=== PATIENT | female | born 1950 | race Caucasian/White ===

== ENCOUNTER 2023-08-31 13:57 | Emergency (ER) | payer MEDICARE, OTHER, SELFPAY ==
[2023-08-31 14:15] VITALS: BP 137/90
[2023-08-31 18:11] VITALS: BP 127/67; BMI 26.8
[2023-08-31 18:40] LABS: ALT (SGPT) 52 U/L (0-35); AST (SGOT) 38 U/L (14-36); Albumin 3.3 g/dl (3.5-5.0); Alkaline Phosphatase 132 U/L (38-126); Blood Urea Nitrogen 12 mg/dl (7-17); Calcium 9.7 mg/dl (8.4-10.2); Carbon Dioxide 25 mmol/L (22-30); Chloride 99 mmol/L (98-107); Estimated Creatinine Clearance 69 ml/min; Glucose 188 mg/dl (70-99); Potassium 3.4 mmol/L (3.5-5.1); Sodium 130 mmol/L (135-145); Total Bilirubin 0.5 mg/dl (0.2-1.3); Total Protein 5.7 g/dl (6.3-8.2); eGFR > 60.00
[2023-08-31 18:44] LABS: % Basophils 0.3 % (0-2); % Eosinophils 0.8 % (0-6); % Immature Granulocytes 0.4 % (0-0.5); % Lymphocytes 16.7 % (20.5-51.1); % Monocytes 9.4 % (1.7-9.3); % Neutrophils 72.4 % (42.2-75.2); Absolute Eosinophils 0.1 10^3/uL (0-0.7); Absolute Immature Granulocytes 0.1 10^3/uL (0-0.05); Absolute Lymphocytes 1.9 10^3/uL (1.2-3.4); Absolute Monocytes 1.1 10^3/uL (0.1-0.6); Absolute Neutrophils 8.3 10^3/uL (1.4-6.5); Hematocrit 34.5 % (37.0-47.0); Hemoglobin 11.8 g/dL (12.0-16.0); Mean Corp Hgb Conc. 34.2 g/dL (33.0-37.0); Mean Corpuscular Hgb 29.9 pg (27.0-31.0); Mean Corpuscular Volume 87.6 fL (81.0-99.0); Mean Platelet Volume 9.5 fL (7.4-10.4); Nucleated Red Blood Cells % 0 %; Platelet Count 347 10^3/uL (130-400); Red Blood Cell Count 3.94 10^6/uL (4.20-5.40); Red Cell Dist. Width 12.7 % (11.5-14.5); White Blood Cell Count 11.5 10^3/uL (4.8-10.8)
[2023-08-31 19:00] LABS: Urine Albumin Negative (Neg - Trace); Urine Bilirubin Negative (Negative); Urine Character Clear (Clear); Urine Color Yellow; Urine Glucose Negative (Negative); Urine Ketone Negative (Negative); Urine Leukocyte Negative (Negative); Urine Nitrite Negative (Negative); Urine Occult Blood Trace (Negative); Urine Urobilinogen Negative (Neg - 1+)
[2023-08-31 19:06] VITALS: BP 136/82
[2023-08-31] MEDS: ZOFRAN 4 MG IV (19:07)
[2023-08-31] MEDS: MORPHINE SULFATE 2 MG IV (19:08)
[2023-08-31] MEDS: DECADRON 10 MG IV (19:09)
[2023-08-31 19:14] LABS: Urine White Cell None Seen /HPF (0-5)
--- NOTE | 2023-08-31 22:57 | ED.MUSCINJ ---
HPI-Injury
General
Chief Complaint: Extremity Pain (non-traumatic)
Source: patient
Exam Limitations: none
Time Seen by Provider: 08/31/23 17:04
Nursing documentation reviewed up to this point in time: agreed with
Travel History
Have you had any contact with someone who has COVID-19?: No
Do you have any symptoms of coronavirus? Fever > 100 degrees, chills, cough, shortness of breath, sore throat, loss of taste or smell, muscle aches, or headache?: No
History of Present Illness-Injury
Is this injury a work related problem?: No
Is pt an associate of [facility]?: No
Initial Injury comments:
Patient to ED with complaint of low back pain. States she was seen by pain management last week, had epidural. States first 24 hours she was pain free but after that pain began to excalate. Advised by Dr. Mondragon to come to ED. Denies
fever/chills, n/v/d. No ski rash. No headache or dizziness. States at times legs feel weak because of pain. Brought to ED by spouse for eval.
Past History
Past History
ED Past Medical History: None, Cancer, GERD, HTN and Hypercholesterolemia
ED Past Surgical History: Urological
Social History
Tobacco: Non-smoker
Alcohol: None
Drug: None
Personal:
Living: with family
Review of Systems
Review of Systems
Allergies reviewed?: Yes
All Other Systems: ROS reviewed and negative except as documented in HPI and ROS
Constitutional: Reports no symptoms
EENT: Reports no symptoms
Respiratory: Reports no symptoms
Cardiac: Reports no symptoms
ABD/GI: Reports no symptoms
: Reports no symptoms
Musculoskeletal: Reports joint pain (back pain)
Skin: Reports no symptoms
Neurological: Reports no symptoms
Psychiatric: Reports no symptoms
Musculoskeletal Injury Exam
Musculoskeletal Injury Exam
Bilateral Lower Back:
Pain with Movement?: Moderate
Tender to palpation?: Moderate
Soft tissue swelling?: None
External deformity and angulation?: None
Joint effusion?: None
Contusion?: None
Hematoma-local bleeding into tissue?: None
Strain- Sprain- Tear (Connective tissue injury)?: None
Crepitus with movement?: No
Joint instability?: No
Malalignment/deformity?: No
Range of motion: Limited
Distal skin color and temperature: normal-warm & good color
Capillary Refill: normal
Normal distal neurovascular exam?: Yes
Phy Exam
General Physical Exam
General Presentation: well appearing and no apparent distress
General age: appears stated age
General Skin: warm and dry
General Habitus: normal
General Mental: alert
Reflexes
Reflexes: +3: Left achilles and +3: Right achilles
Musculoskeletal Exam
Musculoskeletal Exam: neuro vasc intact
Skin Exam
Skin Exam: normal color, warm/dry and no rash
Psychiatric Exam
Psychiatric Exam: normal mood/affect
Injury Course
Orders/Labs/Results
Orders:
Orders
08/31/23 17:13
CR Lumbar Spine Comp Min 4 Vw* Urgent
Comment:
Reason For Exam: pain
08/31/23 18:11
Complete Blood Count/With Diff Urgent
Comprehensive Metabolic Panel Urgent
Urinalysis Reflex To Culture Urgent
Date Specimen was Collected: 08/31/23
Time Specimen was Collected: 18:06
Urine Microscopic Reflex Cult Urgent
08/31/23 18:52
Dexamethasone Sod Phosphate [Decadron] 10 mg IV NOW STA
Morphine Sulfate 2 mg IV NOW STA
Ondansetron Injectable [Zofran] 4 mg IV NOW STA
Abnormal Lab Results
08/31/23
18:11
WBC 11.5 H 10^3/uL
(4.8-10.8)
RBC 3.94 L 10^6/uL
(4.20-5.40)
Hgb 11.8 L g/dL
(12.0-16.0)
Hct 34.5 L %
(37.0-47.0)
Abs Immat Gran (auto) 0.1 H 10^3/uL
(0-0.05)
Absolute Neuts (auto) 8.3 H 10^3/uL
(1.4-6.5)
Absolute Monos (auto) 1.1 H 10^3/uL
(0.1-0.6)
Lymphocytes % 16.7 L %
(20.5-51.1)
Monocytes % 9.4 H %
(1.7-9.3)
Sodium 130 L mmol/L
(135-145)
Potassium 3.4 L mmol/L
(3.5-5.1)
Glucose 188 H mg/dl
(70-99)
AST 38 H U/L
(14-36)
ALT 52 H U/L
(0-35)
Alkaline Phosphatase 132 H U/L
(38-126)
Total Protein 5.7 L g/dl
(6.3-8.2)
Albumin 3.3 L g/dl
(3.5-5.0)
Ur Occult Blood Reflex Trace A
(Negative)
Urine RBC 3-6 A /HPF
(0-2)
08/31/23 18:11
08/31/23 18:11
*Radiology
Radiology exam reviewed: radiology read reviewed
*Pulse Oximetry
Patient hypoxic: no
*Critical Care Note
Total Time (30-74mins, 75-104mins- exclusive of procedures): Not Applicable
Update Note
Update Note:
Improved with pain medications. Ambulating without difficulty. Afebrile. Will discharge home. She will follow up with pain management in AM
ED Attending Note
-
Portions of this chart may have been created with voice recognition software.� Occasional wrong word or��sound alike� substitutions may have occurred due to the inherent limitations of voice recognition software.
Discharge Plan
Departure
Patient Disposition: Home (Routine Discharge)
Date of Disposition: 08/31/23
Time of Disposition: 19:39
Patient with high blood pressure during this ER visit?: No
Condition: Good
Covid-19: Not Applicable
Discharge Problem:
Back pain
Instructions: Back Pain
Prescriptions:
New
oxycodone-acetaminophen [Percocet] 5-325 mg tablet
1 tab PO Q4HPRN PRN (Reason: pain) Qty: 15 0RF
No Action
simvastatin 10 MG tablet
10 mg PO HS
amitriptyline 10 mg Tablet
40 mg PO HS Qty: 0
omeprazole magnesium [Prilosec OTC] 20 MG tablet,delayed release (DR/EC)
20 mg PO DAILY
fosinopril 20 MG tablet
20 mg PO DAILY
hydrochlorothiazide 12.5 MG capsule
12.5 mg PO DAILY
diphenhydramine-acetaminophen [Tylenol PM Extra Strength] 1 EACH tablet
2 tab PO HS PRN (Reason: PAIN/SLEEP)
diltiazem HCl 120 mg capsule,extended release 24hr
120 mg PO DAILY
azelastine 137 mcg (0.1 %) aerosol,spray
1 spray INTRANASAL BID
amoxicillin-pot clavulanate 875-125 mg tablet
1 tab PO Q12H
magnesium citrate 125 mg Capsule
120 mg PO HS
Referrals:
Ellis Hi MD [Family Provider] - Tomorrow
Interventions
Interventions:
*Risk Screen - Suicide Last Done: 08/31/23 14:15
*General Assessment Last Done: 08/31/23 19:13
*Neglect/Abuse Screening Last Done: 08/31/23 14:15
ED- Fall Risk Assessment Last Done: 08/31/23 19:14
*ED COVID-19 Vaccine History Last Done: 08/31/23 14:15
*Nursing Disposition Last Done: 08/31/23 20:18
ED-Skin Assessment Last Done: 08/31/23 18:11
ED-Peripheral Vascular Assessment Last Done: 08/31/23 18:16
ED-Musculoskeletal Assessment Last Done: 08/31/23 18:16
Discharge Date and Time
Discharge Date/Time: 08/31/23 20:19
== END 2023-08-31 20:19 | disposition home or self-care (01) ==
LOC: EMR 13:57
PROVIDERS: Nurse Practitioner; EMERGENCY PHYSICIAN Emergency Medicine; FAMILY PHYSICIAN Family Medicine
DX: M54.9 Dorsalgia, unspecified (principal)
CPT/HCPCS: 99284; 96374; 96375 ×2; 72110; 80053; 81003; 81015; 85025

== ENCOUNTER → 2023-09-23 15:43 | Outpatient (REF) | payer MEDICARE, OTHER, SELFPAY ==
[2023-09-23 16:04] LABS: % Basophils 0.4 % (0-2); % Eosinophils 1.1 % (0-6); % Immature Granulocytes 0.6 % (0-0.5); % Lymphocytes 14.6 % (20.5-51.1); % Monocytes 12.7 % (1.7-9.3); % Neutrophils 70.6 % (42.2-75.2); Absolute Basophils 0.1 10^3/uL (0-0.2); Absolute Eosinophils 0.2 10^3/uL (0-0.7); Absolute Immature Granulocytes 0.1 10^3/uL (0-0.05); Absolute Lymphocytes 2.1 10^3/uL (1.2-3.4); Absolute Monocytes 1.8 10^3/uL (0.1-0.6); Absolute Neutrophils 10.1 10^3/uL (1.4-6.5); Hematocrit 35.6 % (37.0-47.0); Hemoglobin 11.6 g/dL (12.0-16.0); Mean Corp Hgb Conc. 32.6 g/dL (33.0-37.0); Mean Corpuscular Hgb 28.6 pg (27.0-31.0); Mean Corpuscular Volume 87.9 fL (81.0-99.0); Mean Platelet Volume 9.3 fL (7.4-10.4); Nucleated Red Blood Cells % 0 %; Platelet Count 508 10^3/uL (130-400); Red Blood Cell Count 4.05 10^6/uL (4.20-5.40); Red Cell Dist. Width 13.6 % (11.5-14.5); White Blood Cell Count 14.2 10^3/uL (4.8-10.8)
[2023-09-23 16:19] LABS: ALT (SGPT) 26 U/L (0-35); AST (SGOT) 21 U/L (14-36); Albumin 3.2 g/dl (3.5-5.0); Alkaline Phosphatase 125 U/L (38-126); Blood Urea Nitrogen 15 mg/dl (7-17); Calcium 10.3 mg/dl (8.4-10.2); Carbon Dioxide 24 mmol/L (22-30); Chloride 100 mmol/L (98-107); Glucose 116 mg/dl (70-99); Potassium 4.1 mmol/L (3.5-5.1); Sodium 135 mmol/L (135-145); Total Bilirubin 0.8 mg/dl (0.2-1.3); Total Protein 5.8 g/dl (6.3-8.2); eGFR > 60.00
[2023-09-23 16:21] LABS: Erythrocyte Sed Rate 56 mm/hour (0-20)
[2023-09-23 16:33] LABS: Vitamin D, 25-OH*** 16.6 ng/mL (30-80)
[2023-09-23 17:46] LABS: Creatine Phosphokinase < 20 U/L (30-135)
[2023-09-23 19:44] LABS: TSH Reflex To Free T4 2.46 uIU/ml (0.47-4.68)
[2023-09-26 21:28] LABS: ANA, IgG Reflex to HEp-2 Detected (None Detected)
[2023-09-28 01:37] LABS: ANA, HEp-2, IgG Detected (<1:80)
[2023-09-28 10:32] LABS: ANA Pattern Centromere
== END ==
LOC: CLAB 15:43
PROVIDERS: ATTENDING PHYSICIAN Nurse Practitioner Family
DX: M62.81 Muscle weakness (generalized) (principal); Z79.899 Other long term (current) drug therapy
CPT/HCPCS: 36415; 80053; 82306; 82550; 84443; 85025; 85652; 86038; 86039; 86140

== ENCOUNTER → 2023-09-27 09:50 | Outpatient (REF) | payer MEDICARE, OTHER, SELFPAY ==
[2023-09-27 16:19] LABS: Rheumatoid Agglutinin Less Than 10 IU (<10 IU)
== END ==
LOC: HWLAB 09:50
PROVIDERS: ATTENDING PHYSICIAN Nurse Practitioner Family
DX: M62.81 Muscle weakness (generalized) (principal)
CPT/HCPCS: 36415; 86430

== ENCOUNTER → 2023-09-29 15:27 | Outpatient (REF) | payer MEDICARE, OTHER, SELFPAY ==
[2023-09-29 16:11] LABS: Calcium 10.5 mg/dl (8.4-10.2)
[2023-10-02 11:45] LABS: Intact PTH 36.7 pg/ml (13.6-85.8)
[2023-10-03 04:14] LABS: Albumin 3.16 g/dL (3.75-5.01); Alpha 1 Globulin 0.63 g/dL (0.19-0.46); Alpha 2 Globulin 1.12 g/dL (0.48-1.05); Free Kappa Light Chains,Quant 21.35 mg/L (3.30-19.40); Free Lambda Light Chains,Quant 24.32 mg/L (5.71-26.30); IgA 163 mg/dL (68-408); IgG 655 mg/dL (768-1632); IgM 105 mg/dL (35-263); Immunofixation Electrophoresis IFE Done; Kappa/Lambda Fr Light Ratio 0.88 (0.26-1.65); Total Protein-Electrophoresis 6.5 g/dL (6.3-8.2)
== END ==
LOC: REG 15:27
PROVIDERS: ATTENDING PHYSICIAN Nurse Practitioner Family
DX: M79.18 Myalgia, other site (principal); M62.81 Muscle weakness (generalized)
CPT/HCPCS: 36415; 82784; 83521; 83970; 84155; 84165; 86334

== ENCOUNTER → 2023-10-05 09:02 | Outpatient (REF) | payer MEDICARE, OTHER, SELFPAY ==
[2023-10-05 10:28] LABS: Urine Albumin Negative (Neg - Trace); Urine Bilirubin Negative (Negative); Urine Character Clear (Clear); Urine Color Yellow; Urine Glucose Negative (Negative); Urine Ketone Negative (Negative); Urine Leukocyte 2+ (Negative); Urine Nitrite Positive (Negative); Urine Occult Blood Trace (Negative); Urine Specific Gravity 1.005 (<1.030); Urine Urobilinogen Negative (Neg - 1+)
[2023-10-05 11:02] LABS: Calcium 10.1 mg/dl (8.4-10.2)
[2023-10-05 11:02] LABS: Urine Bacteria Many (Negative); Urine Protein 17 mg/dl; Urine Red Blood Cell None Seen /HPF (0-2)
[2023-10-05 11:22] LABS: Intact PTH 72.1 pg/ml (13.6-85.8)
[2023-10-05 11:29] LABS: Hepatitis B Surface Antigen Negative (Negative)
[2023-10-05 11:32] LABS: Hepatitis A IgM Antibody Negative (Negative)
[2023-10-05 11:46] LABS: Hepatitis B Surface Antibody Negative; Hepatitis C Antibody Negative (Negative)
[2023-10-05 15:41] LABS: HIV Combo Negative (Negative)
[2023-10-06 06:12] LABS: Hepatitis A Antibody, Total Negative (Negative)
[2023-10-07 00:08] LABS: Complement C3 171 mg/dl (88-165)
[2023-10-07 08:23] LABS: Histone Antibody, IgG 0.8 Units (0.0-0.9)
[2023-10-07 08:43] LABS: CCP Antibody IgG/IgA 6 Units (0-19)
[2023-10-07 10:24] LABS: Vitamin D 1,25 Dihydroxy 46.7 pg/mL (19.9-79.3)
[2023-10-07 13:21] LABS: Smith/RNP (ENA), IgG 3 Units (0-19)
[2023-10-07 13:32] LABS: Rheumatoid Agglutinin Less Than 10 IU (<10 IU)
[2023-10-07 19:49] LABS: ds-DNA Ab, IgG Reflex To Titer 23 IU (0-24)
[2023-10-07 20:27] LABS: Centromere Antibody 25 AU/mL (0-40); SSA 52 (Ro)(ENA) Ab, IgG 7 AU/mL (0-40); SSA 60 (Ro)(ENA) Ab, IgG 6 AU/mL (0-40); SSB (La)(ENA) Ab, IgG 0 AU/mL (0-40); Scleroderma Antibody (Scl-70) 1 AU/mL (0-40); Smith (ENA) Antibody, IgG 6 AU/mL (0-40)
[2023-10-08 04:47] LABS: Aldolase 4.8 U/L (1.2-7.6); Angiotensin-1-converting Enzym <10 U/L (16-85)
[2023-10-08 11:51] LABS: Hepatitis C Genotype High Res Indeterminate
[2023-10-08 22:00] LABS: Retinyl Palmitate <0.02 mg/L (0.00-0.10); Vitamin A (Retinol) 0.91 mg/L (0.30-1.20); Xitamin A Interpretation Normal
== END ==
LOC: REG 09:02
PROVIDERS: ATTENDING PHYSICIAN Internal Medicine Rheumatology; FAMILY PHYSICIAN Family Medicine
DX: M06.4 Inflammatory polyarthropathy (principal); R76.0 Raised antibody titer; I10 Essential (primary) hypertension; E78.5 Hyperlipidemia, unspecified; K21.9 Gastro-esophageal reflux disease without esophagitis; N18.9 Chronic kidney disease, unspecified; I27.82 Chronic pulmonary embolism; E83.52 Hypercalcemia; E55.9 Vitamin D deficiency, unspecified; Z20.5 Contact with and (suspected) exposure to viral hepatitis; Z20.6 Contact with and (suspected) exposure to human immunodeficiency virus [HIV]; Z20.1 Contact with and (suspected) exposure to tuberculosis; Z79.899 Other long term (current) drug therapy
CPT/HCPCS: 36415; 81003; 81015; 82085; 82164; 82570; 82652; 83516; 83970; 84156; 84590; 86160; 86200; 86225; 86235; 86430; 86706; 86708; 86709; 86803; 87340; 87389; 87902

== ENCOUNTER → 2023-10-06 06:21 | Outpatient (REF) | payer MEDICARE, OTHER, SELFPAY ==
[2023-10-09 04:43] LABS: Quantiferon Mitogen minus NIL 1.44 IU/mL; Quantiferon NIL 0.01 IU/mL; Quantiferon TB Gold Plus Negative (Negative)
== END ==
LOC: REG 06:21
PROVIDERS: ATTENDING PHYSICIAN Internal Medicine Rheumatology
DX: M06.4 Inflammatory polyarthropathy (principal); I10 Essential (primary) hypertension; E78.5 Hyperlipidemia, unspecified; K21.9 Gastro-esophageal reflux disease without esophagitis; N18.9 Chronic kidney disease, unspecified; I27.82 Chronic pulmonary embolism; E83.52 Hypercalcemia; E55.9 Vitamin D deficiency, unspecified; Z20.5 Contact with and (suspected) exposure to viral hepatitis; Z20.6 Contact with and (suspected) exposure to human immunodeficiency virus [HIV]; Z20.1 Contact with and (suspected) exposure to tuberculosis; Z79.899 Other long term (current) drug therapy
CPT/HCPCS: 36415; 86480

== ENCOUNTER → 2023-10-12 13:43 | Outpatient (REF) | payer MEDICARE, OTHER, SELFPAY | LOC: HWRCS 13:43 | PROVIDERS: ATTENDING PHYSICIAN Internal Medicine Cardiovascular Disease; FAMILY PHYSICIAN Family Medicine | DX: E78.2 Mixed hyperlipidemia (principal); I10 Essential (primary) hypertension; Z90.5 Acquired absence of kidney; C64.1 Malignant neoplasm of right kidney, except renal pelvis; Z86.711 Personal history of pulmonary embolism; R01.1 Cardiac murmur, unspecified | CPT/HCPCS: 93306 ==

== ENCOUNTER → 2023-10-13 11:53 | Outpatient (REF) | payer MEDICARE, OTHER, SELFPAY ==
[2023-10-13 15:33] LABS: Urine Albumin Negative (Neg - Trace); Urine Bilirubin Negative (Negative); Urine Character Clear (Clear); Urine Color Yellow; Urine Glucose Negative (Negative); Urine Ketone Negative (Negative); Urine Leukocyte Negative (Negative); Urine Nitrite Negative (Negative); Urine Occult Blood Negative (Negative); Urine Urobilinogen Negative (Neg - 1+); Urine pH 6.5 (5.0-9.0)
== END ==
LOC: REG 11:53
PROVIDERS: ATTENDING PHYSICIAN Nurse Practitioner Family
DX: N30.01 Acute cystitis with hematuria (principal)
CPT/HCPCS: 81003; 87086

== ENCOUNTER → 2023-12-21 09:30 | Outpatient (REF) | payer MEDICARE, OTHER, SELFPAY ==
[2023-12-21 10:26] LABS: Erythrocyte Sed Rate 9 mm/hour (0-20)
[2023-12-21 11:02] LABS: C-Reactive Protein < 5.00 mg/L (0.0-10.00)
== END ==
LOC: REG 09:30
PROVIDERS: ATTENDING PHYSICIAN Internal Medicine Rheumatology
DX: M35.3 Polymyalgia rheumatica (principal); M54.12 Radiculopathy, cervical region; M54.16 Radiculopathy, lumbar region; K21.9 Gastro-esophageal reflux disease without esophagitis; N18.9 Chronic kidney disease, unspecified; E78.5 Hyperlipidemia, unspecified; I10 Essential (primary) hypertension; Z86.711 Personal history of pulmonary embolism; Z79.52 Long term (current) use of systemic steroids; Z79.899 Other long term (current) drug therapy
CPT/HCPCS: 36415; 85652; 86140

== ENCOUNTER → 2024-01-18 09:55 | Outpatient (REF) | payer MEDICARE, OTHER, SELFPAY ==
[2024-01-18 11:49] LABS: C-Reactive Protein < 5.00 mg/L (0.0-10.00)
[2024-01-18 13:07] LABS: Erythrocyte Sed Rate 10 mm/hour (0-20)
== END ==
LOC: REG 09:55
PROVIDERS: ATTENDING PHYSICIAN Internal Medicine Rheumatology; FAMILY PHYSICIAN Family Medicine
DX: M15.0 Primary generalized (osteo)arthritis (principal); M54.12 Radiculopathy, cervical region; M35.3 Polymyalgia rheumatica; M54.16 Radiculopathy, lumbar region; K21.9 Gastro-esophageal reflux disease without esophagitis; N18.9 Chronic kidney disease, unspecified; E78.5 Hyperlipidemia, unspecified; I10 Essential (primary) hypertension; Z86.711 Personal history of pulmonary embolism; Z79.52 Long term (current) use of systemic steroids; Z79.899 Other long term (current) drug therapy
CPT/HCPCS: 36415; 85652; 86140

== ENCOUNTER → 2024-02-11 11:34 | Outpatient (REF) | payer MEDICARE, OTHER, SELFPAY ==
[2024-02-11 19:09] LABS: Urine Albumin Negative (Neg - Trace); Urine Bilirubin Negative (Negative); Urine Character Slightly Cloudy (Clear); Urine Color Yellow; Urine Glucose Negative (Negative); Urine Ketone Negative (Negative); Urine Leukocyte 2+ (Negative); Urine Nitrite Negative (Negative); Urine Occult Blood Trace (Negative); Urine Specific Gravity 1.005 (<1.030); Urine Urobilinogen Negative (Neg - 1+)
[2024-02-11 19:32] LABS: Urine Bacteria Many (Negative); Urine Red Blood Cell None Seen /HPF (0-2); Urine White Cell 26-30 /HPF (0-5)
== END ==
LOC: CLAB 11:34
PROVIDERS: ATTENDING PHYSICIAN Physician Assistant Medical
DX: R35.0 Frequency of micturition (principal)
CPT/HCPCS: 81003; 81015; 87077; 87086; 87186

== ENCOUNTER → 2024-02-14 11:36 | Outpatient (REF) | payer MEDICARE, OTHER, SELFPAY ==
[2024-02-14 12:48] LABS: Albumin 3.6 g/dl (3.5-5.0); Carbon Dioxide 25 mmol/L (22-30); Total Protein 5.9 g/dl (6.3-8.2); eGFR > 60.00
[2024-02-14 12:57] LABS: ALT (SGPT) 28 U/L (0-35); AST (SGOT) 20 U/L (14-36); Alkaline Phosphatase 126 U/L (38-126); Blood Urea Nitrogen 19 mg/dl (7-17); Calcium 10.3 mg/dl (8.4-10.2); Chloride 100 mmol/L (98-107); Glucose 143 mg/dl (70-99); Potassium 3.7 mmol/L (3.5-5.1); Sodium 133 mmol/L (135-145); Total Bilirubin 0.6 mg/dl (0.2-1.3)
[2024-02-14 13:20] LABS: % Basophils 0.2 % (0-2); % Eosinophils 0.2 % (0-6); % Immature Granulocytes 0.8 % (0-0.5); % Lymphocytes 11.9 % (20.5-51.1); % Monocytes 7.8 % (1.7-9.3); % Neutrophils 79.1 % (42.2-75.2); Absolute Immature Granulocytes 0.1 10^3/uL (0-0.05); Absolute Monocytes 1.3 10^3/uL (0.1-0.6); Hematocrit 36.6 % (37.0-47.0); Hemoglobin 12.1 g/dL (12.0-16.0); Mean Corp Hgb Conc. 33.1 g/dL (33.0-37.0); Mean Corpuscular Hgb 28.9 pg (27.0-31.0); Mean Corpuscular Volume 87.4 fL (81.0-99.0); Mean Platelet Volume 9.8 fL (7.4-10.4); Nucleated Red Blood Cells % 0 %; Platelet Count 302 10^3/uL (130-400); Red Blood Cell Count 4.19 10^6/uL (4.20-5.40); Red Cell Dist. Width 17.8 % (11.5-14.5); White Blood Cell Count 16.5 10^3/uL (4.8-10.8)
== END ==
LOC: REG 11:36
PROVIDERS: ATTENDING PHYSICIAN Internal Medicine Hematology & Oncology; FAMILY PHYSICIAN Internal Medicine Rheumatology
DX: C64.1 Malignant neoplasm of right kidney, except renal pelvis (principal); I26.99 Other pulmonary embolism without acute cor pulmonale; D47.2 Monoclonal gammopathy
CPT/HCPCS: 36415; 80053; 82232; 82784; 83521; 84155; 84165; 85025; 86334

== ENCOUNTER → 2024-02-23 12:32 | Outpatient (REF) | payer MEDICARE, OTHER, SELFPAY ==
[2024-02-23 13:57] LABS: C-Reactive Protein < 5.00 mg/L (0.0-10.00)
[2024-02-23 15:44] LABS: Erythrocyte Sed Rate 8 mm/hour (0-20)
== END ==
LOC: REG 12:32
PROVIDERS: ATTENDING PHYSICIAN Internal Medicine Rheumatology; FAMILY PHYSICIAN Family Medicine
DX: M35.3 Polymyalgia rheumatica (principal); M15.0 Primary generalized (osteo)arthritis; M54.12 Radiculopathy, cervical region; M54.16 Radiculopathy, lumbar region; K21.9 Gastro-esophageal reflux disease without esophagitis; N18.9 Chronic kidney disease, unspecified; E78.5 Hyperlipidemia, unspecified; I10 Essential (primary) hypertension; Z86.711 Personal history of pulmonary embolism; Z79.52 Long term (current) use of systemic steroids; Z79.899 Other long term (current) drug therapy
CPT/HCPCS: 36415; 85652; 86140

== ENCOUNTER → 2024-03-09 12:56 | Outpatient (REF) | payer MEDICARE, OTHER, SELFPAY | LOC: HWRAD 12:56 | PROVIDERS: ATTENDING PHYSICIAN Urology; FAMILY PHYSICIAN Family Medicine | DX: N39.41 Urge incontinence (principal); N39.0 Urinary tract infection, site not specified | CPT/HCPCS: 76770 ==

== ENCOUNTER → 2024-04-04 12:18 | Outpatient (REF) | payer MEDICARE, OTHER, SELFPAY ==
[2024-04-04 14:24] LABS: Erythrocyte Sed Rate 7 mm/hour (0-20)
[2024-04-04 14:27] LABS: C-Reactive Protein < 5.00 mg/L (0.0-10.00)
== END ==
LOC: REG 12:18
PROVIDERS: ATTENDING PHYSICIAN Internal Medicine Rheumatology; FAMILY PHYSICIAN Family Medicine
DX: M35.3 Polymyalgia rheumatica (principal); M15.0 Primary generalized (osteo)arthritis; M54.12 Radiculopathy, cervical region; M54.16 Radiculopathy, lumbar region; K21.9 Gastro-esophageal reflux disease without esophagitis; N18.9 Chronic kidney disease, unspecified; E78.5 Hyperlipidemia, unspecified; I10 Essential (primary) hypertension; Z86.711 Personal history of pulmonary embolism; Z79.52 Long term (current) use of systemic steroids; Z79.899 Other long term (current) drug therapy
CPT/HCPCS: 36415; 85652; 86140

== ENCOUNTER → 2024-05-17 12:33 | Outpatient (REF) | payer MEDICARE, OTHER, SELFPAY ==
[2024-05-17 14:09] LABS: Erythrocyte Sed Rate 8 mm/hour (0-20)
[2024-05-17 14:12] LABS: C-Reactive Protein < 5.00 mg/L (0.0-10.00)
== END ==
LOC: REG 12:33
PROVIDERS: ATTENDING PHYSICIAN Internal Medicine Rheumatology; FAMILY PHYSICIAN Family Medicine
DX: M35.3 Polymyalgia rheumatica (principal); M54.12 Radiculopathy, cervical region; M54.16 Radiculopathy, lumbar region; I10 Essential (primary) hypertension; Z79.899 Other long term (current) drug therapy
CPT/HCPCS: 36415; 85652; 86140

== ENCOUNTER → 2024-06-19 12:17 | Outpatient (REF) | payer MEDICARE, OTHER, SELFPAY ==
[2024-06-19 14:32] LABS: Erythrocyte Sed Rate 24 mm/hour (0-20)
== END ==
LOC: REG 12:17
PROVIDERS: ATTENDING PHYSICIAN Internal Medicine Rheumatology; FAMILY PHYSICIAN Family Medicine
DX: M35.3 Polymyalgia rheumatica (principal); M15.0 Primary generalized (osteo)arthritis; M54.12 Radiculopathy, cervical region; M54.16 Radiculopathy, lumbar region; K21.9 Gastro-esophageal reflux disease without esophagitis; N18.9 Chronic kidney disease, unspecified; E78.5 Hyperlipidemia, unspecified; I10 Essential (primary) hypertension; Z86.711 Personal history of pulmonary embolism; Z79.52 Long term (current) use of systemic steroids; Z79.899 Other long term (current) drug therapy
CPT/HCPCS: 36415; 85652; 86140

== ENCOUNTER 2024-06-20 08:57 | Emergency (ER) | payer MEDICARE, OTHER, SELFPAY ==
[2024-06-20 08:58] VITALS: BP 153/89
--- NOTE | 2024-06-20 09:12 | ED.GENMED ---
History of Present Illness
<Josefa Benson PA-C - Last Filed: 06/20/24 18:01>
General
Chief Complaint: Back Pain
Source: patient
Exam Limitations: none
Time Seen by Provider: 06/20/24 09:12
Nursing documentation reviewed up to this point in time: agreed with
History of Present Illness
History of Present Illness:
This is 73-year-old female with past medical history of polymyalgia rheumatica, hypertension, IBS, distal PE no longer on Eliquis presents to the emergency department today with concerns of exertional shortness of breath and lower extremity
swelling. Patient states that she noticed this first starting on her trip in [place] this past 2 weeks. Patient states that throughout the trip these symptoms have gotten progressively worse. Patient notes that she flew home from [place] 5
days ago and notes that her symptoms have been getting progressively worse. Patient also notes right sided upper back spasm. Patient reports that she seems a spinal pain specialist for this and is usually managed with epidural injections/steroids.
She also notes swelling in her legs bilaterally, worse in the left. She denies chest pain, lightheadedness, dizziness, syncope episodes, fevers or chills, abdominal pain. Patient states that she sees Dr. Winkler for check ups but denies history of
cardiac disease.
Past History
<Josefa Benson PA-C - Last Filed: 06/20/24 18:01>
Past History
ED Past Medical History: None, Cancer, GERD, HTN and Hypercholesterolemia
ED Past Surgical History: Urological
Social History
Tobacco: Non-smoker
Alcohol: None
Drug: None
Personal:
Living: with family
Review of Systems
<MADELAINE Back Last Filed: 06/20/24 18:01>
Review of Systems
All Other Systems: ROS reviewed and negative except as documented in HPI and ROS
Phy Exam
<Josefa Benson PA-C - Last Filed: 06/20/24 18:01>
Physical Exam
Physical Exam:
General: Patient is well appearing and in no acute distress; non-toxic
Skin: Warm and dry, no rashes or lesions
Head: Normocephalic, atraumatic
Eyes: Sclera non-icteric. EOMs intact. PERRLA.
Cardiac: Regular rate and rhythm, no murmurs
Peripheral Vascular: Bilateral lower extremity swelling L>R, 2+ dp pt pulses b/l
Pulm: Conversational dyspnea noted, lungs clear bilaterally with no wheezes, rales, rhonchi
Musculoskeletal: No tenderness to palpation of LLE
Neuro: CN II-XII intact, no focal neurologic deficits.
Psychiatric: Appropriate mood and affect.
Scores
<Josefa Benson PA-C - Last Filed: 06/20/24 18:01>
PE Low Risk Score
Hemodynamically unstable?: No
Course
<Josefa Benson PA-C - Last Filed: 06/20/24 18:01>
Orders/Labs/Results
Orders:
Orders
06/20/24 09:33
CT Chest Pe Study Urgent
Comment:
Reason For Exam: shortness of breath, right sided upper
06/20/24 09:34
Electrocardiogram (*1) Urgent
Reason for Study: Shortness of Breath
EKG- Treatment ONCE
06/20/24 09:38
Cardiac Monitoring- Treatment ONCE
06/20/24 09:46
Complete Blood Count/With Diff Urgent
Comprehensive Metabolic Panel Urgent
NT-proBNP Urgent
Troponin I Urgent
06/20/24 11:07
US Periph Venous LOWER Ext Manuel Urgent
Comment:
Reason For Exam: known pe
06/20/24 12:51
Case Management Consult ONCE
Case Management Consult: Discharge Planning
Abnormal Lab Results
06/20/24
09:46
WBC 12.0 H 10^3/uL
(4.8-10.8)
RBC 3.78 L 10^6/uL
(4.20-5.40)
Hct 36.4 L %
(37.0-47.0)
MCH 31.7 H pg
(27.0-31.0)
RDW 15.3 H %
(11.5-14.5)
Plt Count 405 H 10^3/uL
(130-400)
Abs Immat Gran (auto) 0.1 H 10^3/uL
(0-0.05)
Absolute Neuts (auto) 8.4 H 10^3/uL
(1.4-6.5)
Absolute Monos (auto) 1.1 H 10^3/uL
(0.1-0.6)
Lymphocytes % 17.6 L %
(20.5-51.1)
Glucose 152 H mg/dl
(70-99)
Total Protein 6.0 L g/dl
(6.3-8.2)
06/20/24 09:46
06/20/24 09:46
Vital Signs
Initial and Last Documented VS:
Initial Vital Signs
Temp Pulse Resp BP Pulse Ox
98.6 F 92 20 153/89 94
06/20/24 08:58 06/20/24 08:58 06/20/24 08:58 06/20/24 08:58 06/20/24 08:58
Last Documented Vital Signs
Temp Pulse Resp BP Pulse Ox
98.6 F 93 19 151/100 94
06/20/24 08:58 06/20/24 13:30 06/20/24 10:00 06/20/24 13:30 06/20/24 13:30
<Luis Armando Torres DO - Last Filed: 06/20/24 13:22>
Orders/Labs/Results
Orders:
Orders
06/20/24 09:33
CT Chest Pe Study Urgent
Comment:
Reason For Exam: shortness of breath, right sided upper
06/20/24 09:34
Electrocardiogram (*1) Urgent
Reason for Study: Shortness of Breath
EKG- Treatment ONCE
06/20/24 09:38
Cardiac Monitoring- Treatment ONCE
06/20/24 09:46
Complete Blood Count/With Diff Urgent
Comprehensive Metabolic Panel Urgent
NT-proBNP Urgent
Troponin I Urgent
06/20/24 11:07
US Periph Venous LOWER Ext Manuel Urgent
Comment:
Reason For Exam: known pe
06/20/24 12:51
Case Management Consult ONCE
Case Management Consult: Discharge Planning
Abnormal Lab Results
06/20/24
09:46
WBC 12.0 H 10^3/uL
(4.8-10.8)
RBC 3.78 L 10^6/uL
(4.20-5.40)
Hct 36.4 L %
(37.0-47.0)
MCH 31.7 H pg
(27.0-31.0)
RDW 15.3 H %
(11.5-14.5)
Plt Count 405 H 10^3/uL
(130-400)
Abs Immat Gran (auto) 0.1 H 10^3/uL
(0-0.05)
Absolute Neuts (auto) 8.4 H 10^3/uL
(1.4-6.5)
Absolute Monos (auto) 1.1 H 10^3/uL
(0.1-0.6)
Lymphocytes % 17.6 L %
(20.5-51.1)
Glucose 152 H mg/dl
(70-99)
Total Protein 6.0 L g/dl
(6.3-8.2)
06/20/24 09:46
06/20/24 09:46
Vital Signs
Initial and Last Documented VS:
Initial Vital Signs
Temp Pulse Resp BP Pulse Ox
98.6 F 92 20 153/89 94
06/20/24 08:58 06/20/24 08:58 06/20/24 08:58 06/20/24 08:58 06/20/24 08:58
Last Documented Vital Signs
Temp Pulse Resp BP Pulse Ox
98.6 F 93 19 151/100 94
06/20/24 08:58 06/20/24 13:30 06/20/24 10:00 06/20/24 13:30 06/20/24 13:30
Willt;Josefa Benson PA-C - Last Filed: 06/20/24 18:01>
MDM/Problems Addressed
Differential Diagnosis Includes:
ddx include PE, CHF, ACS, osteoarthritis, musculoskeletal strain/sprain, venous insufficiency, DVT
MDM/Problems Addressed:
73-year-old female with a past medical history of PE no longer on Xarelto, polymyalgia rheumatica, hlp, htn presents to the ER today with multiple weeks of shortness of breath and lower extremity swelling. She also notes back pain. She recently
got off a plane a few days ago from [place]. Patient is well-appearing on exam but she does have conversational dyspnea and she is mildly hypoxic 92 to 93% on room air, but her lungs are clear. Otherwise blood pressure stable. Patient sent for
CT PE study, CBC, CMP, EKG, troponin, BNP obtained. Patient will be reassessed.
CT PE study notable for bilateral segmental pulmonary emboli with no evidence of right heart strain. Patient updated on results. US added.
11:15 am-- Patient ambulated in the emergency department, pulse ox dropped to 90% but was asymptomatic.
Patient sent for ultrasound, ultrasound demonstrated popliteal thrombus. Did discuss case with pulmonology who recommended using Hestia criteria to determine patient disposition. Based on Hestia criteria, patient would be eligible for outpatient
treatment. Discussed this with patient, patient states that she feels comfortable going home and would rather not stay in the hospital she did not have to. Did place a case management consult to ensure patient can get her Eliquis without
difficulty. Coupons given villalobos discussed with patient case management. Eliquis starter pack sent to pharmacy. Patient stable for discharge.
Chronic conditions affecting care:
HTN, HLP, IBS
<Josefa Benson PA-C - Last Filed: 06/20/24 18:01>
*Pulse Oximetry
Patient hypoxic: yes (Patient mildly hypoxic occasionally dropping to 91% on RA )
*EKG
Interpreted by ED Provider?: Yes
EKG Intrepretation Date: 06/20/24
Interpretation: normal
Heart Rate: 86
Rate: normal
Rhythm: sinus
[place]: left axis deviation
Interval: normal interval
*Critical Care Note
Total Time (30-74mins, 75-104mins- exclusive of procedures): Not Applicable
Data Reviewed
Review of Other/Old Records Reveals: Records (reviewed ER physician documentation from 08/31/23, patient seen for back pain, reviewed ER Physician documentation from 03/25/19 patient seen for PE admitted and discharged 2 days later on eliquis) and
Discharge Summary (reviewed discharge summary from 03/27/19)
Source: patient and records
ED Attending Note
<Josefa Benson PA-C - Last Filed: 06/20/24 18:01>
-
Portions of this chart may have been created with voice recognition software.� Occasional wrong word or��sound alike� substitutions may have occurred due to the inherent limitations of voice recognition software.
<Luis Armando Torres DO - Last Filed: 06/20/24 13:22>
ED Attending Note
Patient seen and examined by attending physician: Yes
I performed the substantive portion of visit, reviewed & personally made and approve the management plan that is documented in note by myself or NAOMI.: Yes
ED Attending Note:
I agree with hopes note.
Patient presents for evaluation of right flank pain, thoracic pain, Shortness of breath and peripheral edema. Patient has been suffering from polymyalgia rheumatica which has given her multiple issues over the past several months. She noted
recently that she has been developing swelling in her lower extremities. Patient recently traveled to [facility] and [place]. During the trip she began having pain in her right low back. She does have a history of PEs. Patient was seen by her back
doctor and told to come get checked out for her shortness breath. Patient endorses dyspnea on exertion. At rest she does not feel too bad.
General: Awake, Alert, Oriented X3. Appears chronically ill
Vitals: Moderately hypertensive
Head: Atraumatic
Eyes: Pupils equal, EOMI
Throat: Airway intact, no exudates
Neck: Trachea midline
Lungs: Crackles bilateral bases
Heart: Regular rate, no murmurs
Abd: Soft, Nontender, No pulsatile mass
Neuro: Nonfocal
Skin: Warm, dry, no rash
Extremities: pulses equal b/l, 2+ edema
Differential includes PE, CHF, symptomatic anemia, COPD
CT + for b/l segmental PE's. U/S + for dvt. Josefa discussed the patient's presentation with Dr. Rolanda Weldon. She did not provide any specific advice but rather told Hope to follow the HESTI criteria and discharge based upon that. Patient scored
0 based upon the scoring system. Patient feels comfortable going home. Will of case management sure the patient has access to oral anticoagulant that is prescribed.
Discharge Plan
Departure
Patient Disposition: Home (Routine Discharge)
Date of Disposition: 06/20/24
Time of Disposition: 13:08
Patient with high blood pressure during this ER visit?: Yes
Condition: Good
Discharge Problem:
Pulmonary embolism, bilateral, Popliteal vein thrombosis
Instructions: Pulmonary embolism - Discharge instructions, BLOOD PRESSURE, ED Low Risk PE
Prescriptions:
New
Eliquis DVT-PE Treat 30D Start 5 mg (74 tabs) tablets,dose pack
See Rx Instructions .ROUTE .COMPLEX Qty: 74 0RF
Rx Instructions:
orally per package directions
No Action
simvastatin 10 MG tablet
10 mg PO HS
amitriptyline 10 mg Tablet
40 mg PO HS Qty: 0
omeprazole magnesium [Prilosec OTC] 20 MG tablet,delayed release (DR/EC)
20 mg PO DAILY
fosinopril 20 MG tablet
20 mg PO DAILY
hydrochlorothiazide 12.5 MG capsule
12.5 mg PO DAILY
diphenhydramine-acetaminophen [Tylenol PM Extra Strength] 1 EACH tablet
2 tab PO HS PRN (Reason: PAIN/SLEEP)
diltiazem HCl 120 mg capsule,extended release 24hr
120 mg PO DAILY
azelastine 137 mcg (0.1 %) aerosol,spray
1 spray INTRANASAL BID
amoxicillin-pot clavulanate 875-125 mg tablet
1 tab PO Q12H
magnesium citrate 125 mg Capsule
120 mg PO HS
oxycodone-acetaminophen [Percocet] 5-325 mg tablet
1 tab PO Q4HPRN PRN (Reason: pain) Qty: 15 0RF
Referrals:
Dunia Weldon, DO [Active] - Call in 1-3 days for appt
Ellis Hi MD [Family Provider] -
Activity Restrictions/Additional Instructions:
YOU SHOULD RECEIVE A CALL FROM PULMONOLOGY TO SET UP A SOONER FOLLOW UP APPOINTMENT. SHOULD YOU NOT RECEIVE A CALL, PLEASE CALL THE OFFICE AND SAY THAT YOU WERE SEEN IN THE EMERGENCY DEPARTMENT FOR A PULMONARY EMBOLISM.
PLEASE RETURN TO THE EMERGENCY DEPARTMENT SHOULD YOU EXPERIENCE CHEST PAIN, ACUTE WORSENING OF YOUR SHORTNESS OF BREATH, FAINTING SPELLS, FEVERS OR CHILLS, DIZZINESS, LIGHTHEADEDNESS, OR ANY OTHER SIGNS OR SYMPTOMS WORRISOME TO YOU.
Please follow package instruction for Eliquis dosing.
Interventions
Interventions:
*Risk Screen - Suicide Last Done: 06/20/24 08:58
*General Assessment Last Done: 06/20/24 08:58
*Neglect/Abuse Screening Last Done: 06/20/24 08:58
*ED COVID-19 Vaccine History Last Done: 06/20/24 09:50
*Nursing Disposition Last Done: 06/20/24 13:30
ED- Cardiac Assessment Last Done: 06/20/24 11:00
ED-Musculoskeletal Assessment Last Done: 06/20/24 09:52
ED- Pulmonary Assessment Last Done: 06/20/24 09:51
ED-Skin Assessment Last Done: 06/20/24 09:52
Discharge Date and Time
Discharge Date/Time: 06/20/24 13:30
Print Language: BENINESE
[2024-06-20 09:49] VITALS: BMI 27.6
[2024-06-20 09:50] VITALS: BP 141/85
[2024-06-20 10:00] VITALS: BP 147/81
[2024-06-20 10:02] LABS: % Basophils 0.3 % (0-2); % Eosinophils 2.3 % (0-6); % Immature Granulocytes 0.4 % (0-0.5); % Lymphocytes 17.6 % (20.5-51.1); % Monocytes 9.3 % (1.7-9.3); % Neutrophils 70.1 % (42.2-75.2); Absolute Eosinophils 0.3 10^3/uL (0-0.7); Absolute Immature Granulocytes 0.1 10^3/uL (0-0.05); Absolute Lymphocytes 2.1 10^3/uL (1.2-3.4); Absolute Monocytes 1.1 10^3/uL (0.1-0.6); Absolute Neutrophils 8.4 10^3/uL (1.4-6.5); Hematocrit 36.4 % (37.0-47.0); Mean Corpuscular Hgb 31.7 pg (27.0-31.0); Mean Corpuscular Volume 96.3 fL (81.0-99.0); Mean Platelet Volume 8.6 fL (7.4-10.4); Nucleated Red Blood Cells % 0 %; Platelet Count 405 10^3/uL (130-400); Red Blood Cell Count 3.78 10^6/uL (4.20-5.40); Red Cell Dist. Width 15.3 % (11.5-14.5)
[2024-06-20 10:10] LABS: ALT (SGPT) 20 U/L (0-35); AST (SGOT) 25 U/L (14-36); Albumin 3.7 g/dl (3.5-5.0); Alkaline Phosphatase 103 U/L (38-126); Blood Urea Nitrogen 12 mg/dl (7-17); Calcium 10.1 mg/dl (8.4-10.2); Carbon Dioxide 26 mmol/L (22-30); Chloride 104 mmol/L (98-107); Estimated Creatinine Clearance 59 ml/min; Glucose 152 mg/dl (70-99); Potassium 3.9 mmol/L (3.5-5.1); Sodium 137 mmol/L (135-145); Total Bilirubin 0.9 mg/dl (0.2-1.3); eGFR > 60.00
[2024-06-20 10:20] LABS: NT-proBNP 130 pg/ml; Troponin I < 0.012 ng/ml
--- NOTE | 2024-06-20 12:59 | CM ---
Addendum entered by Danette Cervantes 06/20/24 13:11:
Spoke with patient. Bedside RN and at bedside. CM explained pricing and gave patient an educational booklet with coupons inside for her to use. Patient verbalized understanding.
Addendum entered by Danette Cervnates 06/20/24 13:01:
Pricing is $200 for a month supply.
Original Note:
Cm consult for pricing of eliquis for DVT. CM called [facility] to call in rx.
[2024-06-20 13:30] VITALS: BP 151/100
== END 2024-06-20 13:30 | disposition home or self-care (01) ==
LOC: EMR 08:57
PROVIDERS: Physician Assistant; EMERGENCY PHYSICIAN Emergency Medicine; FAMILY PHYSICIAN Family Medicine
DX: I26.99 Other pulmonary embolism without acute cor pulmonale (principal); I82.432 Acute embolism and thrombosis of left popliteal vein; E78.00 Pure hypercholesterolemia, unspecified; I10 Essential (primary) hypertension; K21.9 Gastro-esophageal reflux disease without esophagitis
CPT/HCPCS: 99285; 71275; 80053; 83880; 84484; 85025; 93005; 93970; Q9967

== ENCOUNTER → 2024-07-20 14:16 | Outpatient (REF) | payer MEDICARE, OTHER, SELFPAY | LOC: DHSLP 14:16 | PROVIDERS: ATTENDING PHYSICIAN Internal Medicine Critical Care Medicine; FAMILY PHYSICIAN Family Medicine | DX: G47.33 Obstructive sleep apnea (adult) (pediatric) (principal) | CPT/HCPCS: 95806 ==

== ENCOUNTER → 2024-08-16 12:29 | Outpatient (REF) | payer MEDICARE, OTHER, SELFPAY ==
[2024-08-16 13:16] LABS: Erythrocyte Sed Rate 2 mm/hour (0-20)
[2024-08-16 13:40] LABS: C-Reactive Protein < 5.00 mg/L (0.0-10.00)
== END ==
LOC: REG 12:29
PROVIDERS: ATTENDING PHYSICIAN Internal Medicine Rheumatology; FAMILY PHYSICIAN Family Medicine
DX: M35.3 Polymyalgia rheumatica (principal); M15.0 Primary generalized (osteo)arthritis; M54.12 Radiculopathy, cervical region; M54.16 Radiculopathy, lumbar region; K21.9 Gastro-esophageal reflux disease without esophagitis; N18.9 Chronic kidney disease, unspecified; E78.5 Hyperlipidemia, unspecified; I10 Essential (primary) hypertension; Z86.711 Personal history of pulmonary embolism; Z79.52 Long term (current) use of systemic steroids; Z79.899 Other long term (current) drug therapy
CPT/HCPCS: 36415; 85652; 86140

== ENCOUNTER → 2024-09-26 12:44 | Outpatient (REF) | payer MEDICARE, OTHER, SELFPAY ==
[2024-09-26 14:01] LABS: Erythrocyte Sed Rate 7 mm/hour (0-20)
[2024-09-26 14:19] LABS: C-Reactive Protein < 5.00 mg/L (0.0-10.00)
== END ==
LOC: REG 12:44
PROVIDERS: ATTENDING PHYSICIAN Internal Medicine Rheumatology; FAMILY PHYSICIAN Family Medicine
DX: M15.0 Primary generalized (osteo)arthritis (principal); K21.9 Gastro-esophageal reflux disease without esophagitis; E78.5 Hyperlipidemia, unspecified; Z79.52 Long term (current) use of systemic steroids; Z79.899 Other long term (current) drug therapy; N18.9 Chronic kidney disease, unspecified; I10 Essential (primary) hypertension; Z86.711 Personal history of pulmonary embolism; M35.3 Polymyalgia rheumatica
CPT/HCPCS: 36415; 85652; 86140

== ENCOUNTER → 2024-10-11 14:55 | Outpatient (REF) | payer MEDICARE, OTHER, SELFPAY | LOC: RAD 14:55 | PROVIDERS: ATTENDING PHYSICIAN Internal Medicine Critical Care Medicine; FAMILY PHYSICIAN Family Medicine | DX: I82.432 Acute embolism and thrombosis of left popliteal vein (principal); R06.02 Shortness of breath; Z86.711 Personal history of pulmonary embolism; Z86.718 Personal history of other venous thrombosis and embolism | CPT/HCPCS: 93306; 93970 ==

== ENCOUNTER → 2024-10-30 15:36 | Outpatient (REF) | payer MEDICARE, OTHER, SELFPAY | LOC: RAD 15:36 | PROVIDERS: ATTENDING PHYSICIAN Internal Medicine Rheumatology; FAMILY PHYSICIAN Family Medicine | DX: M54.6 Pain in thoracic spine (principal) | CPT/HCPCS: 72072 ==

== ENCOUNTER → 2024-10-31 07:58 | Outpatient (REF) | payer MEDICARE, OTHER, SELFPAY | LOC: WOUND 07:58 | PROVIDERS: ATTENDING PHYSICIAN Surgery; FAMILY PHYSICIAN Family Medicine | DX: S51.802A Unspecified open wound of left forearm, initial encounter (principal); I82.402 Acute embolism and thrombosis of unspecified deep veins of left lower extremity; I10 Essential (primary) hypertension; Z87.891 Personal history of nicotine dependence; Z86.711 Personal history of pulmonary embolism; Z79.01 Long term (current) use of anticoagulants; X58.XXXA Exposure to other specified factors, initial encounter | CPT/HCPCS: 99203 ==

== ENCOUNTER → 2024-11-06 13:28 | Outpatient (REF) | payer MEDICARE, OTHER, SELFPAY ==
[2024-11-06 14:21] LABS: % Basophils 0.5 % (0-2); % Eosinophils 0.3 % (0-6); % Immature Granulocytes 0.7 % (0-0.5); % Lymphocytes 16.4 % (20.5-51.1); % Monocytes 8.5 % (1.7-9.3); % Neutrophils 73.6 % (42.2-75.2); Absolute Basophils 0.1 10^3/uL (0-0.2); Absolute Immature Granulocytes 0.1 10^3/uL (0-0.05); Absolute Lymphocytes 1.7 10^3/uL (1.2-3.4); Absolute Monocytes 0.9 10^3/uL (0.1-0.6); Absolute Neutrophils 7.7 10^3/uL (1.4-6.5); Hematocrit 39.9 % (37.0-47.0); Mean Corp Hgb Conc. 32.6 g/dL (33.0-37.0); Mean Corpuscular Hgb 29.9 pg (27.0-31.0); Mean Corpuscular Volume 91.7 fL (81.0-99.0); Nucleated Red Blood Cells % 0 %; Platelet Count 345 10^3/uL (130-400); Red Blood Cell Count 4.35 10^6/uL (4.20-5.40); Red Cell Dist. Width 15.9 % (11.5-14.5); White Blood Cell Count 10.5 10^3/uL (4.8-10.8)
== END ==
LOC: REG 13:28
PROVIDERS: ATTENDING PHYSICIAN Family Medicine
DX: D64.9 Anemia, unspecified (principal)
CPT/HCPCS: 36415; 85025

== ENCOUNTER → 2024-11-14 09:23 | Outpatient (REF) | payer MEDICARE, OTHER, SELFPAY | LOC: WOUND 09:23 | PROVIDERS: ATTENDING PHYSICIAN Surgery; FAMILY PHYSICIAN Family Medicine | DX: S51.802A Unspecified open wound of left forearm, initial encounter (principal); I82.402 Acute embolism and thrombosis of unspecified deep veins of left lower extremity; I10 Essential (primary) hypertension; Z79.01 Long term (current) use of anticoagulants; Z86.711 Personal history of pulmonary embolism; Z87.891 Personal history of nicotine dependence; W19.XXXA Unspecified fall, initial encounter | CPT/HCPCS: 99212 ==

== ENCOUNTER 2024-11-18 14:13 | Emergency (ER) | payer MEDICARE, OTHER, SELFPAY ==
[2024-11-18 14:15] VITALS: BP 147/75
[2024-11-18 14:35] LABS: % Basophils 0.4 % (0-2); % Eosinophils 1.4 % (0-6); % Immature Granulocytes 0.4 % (0-0.5); % Lymphocytes 18.7 % (20.5-51.1); % Monocytes 9.6 % (1.7-9.3); % Neutrophils 69.5 % (42.2-75.2); Absolute Eosinophils 0.1 10^3/uL (0-0.7); Absolute Lymphocytes 1.5 10^3/uL (1.2-3.4); Absolute Monocytes 0.8 10^3/uL (0.1-0.6); Absolute Neutrophils 5.7 10^3/uL (1.4-6.5); Hematocrit 35.8 % (37.0-47.0); Hemoglobin 12.2 g/dL (12.0-16.0); Mean Corp Hgb Conc. 34.1 g/dL (33.0-37.0); Mean Corpuscular Hgb 30.3 pg (27.0-31.0); Mean Corpuscular Volume 89.1 fL (81.0-99.0); Mean Platelet Volume 9.2 fL (7.4-10.4); Nucleated Red Blood Cells % 0 %; Platelet Count 309 10^3/uL (130-400); Red Blood Cell Count 4.02 10^6/uL (4.20-5.40); Red Cell Dist. Width 15.2 % (11.5-14.5); White Blood Cell Count 8.1 10^3/uL (4.8-10.8)
[2024-11-18 14:49] LABS: ALT (SGPT) 23 U/L (0-35); AST (SGOT) 19 U/L (14-36); Albumin 3.9 g/dl (3.5-5.0); Alkaline Phosphatase 119 U/L (38-126); Blood Urea Nitrogen 19 mg/dl (7-17); Calcium 10.2 mg/dl (8.4-10.2); Carbon Dioxide 26 mmol/L (22-30); Chloride 101 mmol/L (98-107); Glucose 134 mg/dl (70-99); Potassium 3.2 mmol/L (3.5-5.1); Sodium 134 mmol/L (135-145); Total Bilirubin 0.9 mg/dl (0.2-1.3); eGFR > 60.00
[2024-11-18 14:54] LABS: COVID-19 Antigen Negative (Negative)
[2024-11-18 15:31] VITALS: BP 141/71
--- NOTE | 2024-11-18 16:03 | ED.GENMED ---
History of Present Illness
<Alex Lopez MD, Resident - Last Filed: 11/18/24 20:21>
General
Chief Complaint: Abdominal Pain
Time Seen by Provider: 11/18/24 15:23
History of Present Illness
History of Present Illness:
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 She
describes it as a sharp pain that is a 9 out of 10 that has progressively worsened over the past week. Patient reports she had URI episodes 2 weeks ago including cough, congestion, shortness of breath. She was started on amoxicillin for this
episode. Although states URI episode has improved but not Fully resolved. She reports abdominal tenderness started a week after URI episode. She denies nausea, vomiting. She denies chest pain, shortness of breath. Her last meal was this morning
where she had eggs and toast.
Past History
<Alex Lopez MD, Resident - Last Filed: 11/18/24 20:21>
Past History
ED Past Medical History: None, Cancer, GERD, HTN, Hypercholesterolemia and Other (PE/DVT)
ED Past Surgical History: Urological
Social History
Tobacco: Non-smoker
Alcohol: None
Drug: None
Personal:
Living: with family
Phy Exam
<Alex Lopez MD, Resident - Last Filed: 11/18/24 20:21>
General Physical Exam
General Presentation: well appearing and moderate distress
General Skin: warm and dry
General Mental: alert
Cardiovascular Exam
Cardiovascular Exam: regular rate/rhythm and no edema
Pulmonary Exam
Pulmonary Exam: lungs clear and no respiratory distress
Gastrointestinal Exam
Gastrointestinal Exam: normal bowel sounds, soft, non distended, tender and other (No rebound, no guarding)
Neurological Exam
Neurological Exam: alert and oriented x3
Psychiatric Exam
Psychiatric Exam: normal mood/affect
Course
<Alex Lopez MD, Resident - Last Filed: 11/18/24 20:21>
Orders/Labs/Results
Orders:
Orders
11/18/24 14:18
Electrocardiogram (*1) Urgent
Reason for Study: Abdominal Pain
EKG- Treatment ONCE
11/18/24 14:23
COVID-19 Antigen Urgent
Source: Nasal Swab
Complete Blood Count/With Diff Urgent
Comprehensive Metabolic Panel Urgent
Lipase Urgent
Comment: ADD ON
Influenza A+B Rapid Molecular Urgent
ERNESTO Source: Nasal Swab
Specimen Description:
11/18/24 16:01
Add On- LAB Urgent
Tests Added?: LIPASE
Morphine Sulfate 4 mg IV NOW STA
11/18/24 16:03
US Abdomen Complete/Upper Urgent
Comment:
Reason For Exam: RUQ PAIN
11/18/24 18:01
CR Chest - 2 Views Urgent
Comment:
Reason For Exam: RUQ pain, cough, congestion
Abnormal Lab Results
11/18/24
14:23
RBC 4.02 L 10^6/uL
(4.20-5.40)
Hct 35.8 L %
(37.0-47.0)
RDW 15.2 H %
(11.5-14.5)
Absolute Monos (auto) 0.8 H 10^3/uL
(0.1-0.6)
Lymphocytes % 18.7 L %
(20.5-51.1)
Monocytes % 9.6 H %
(1.7-9.3)
Sodium 134 L mmol/L
(135-145)
Potassium 3.2 L mmol/L
(3.5-5.1)
BUN 19 H mg/dl
(7-17)
Glucose 134 H mg/dl
(70-99)
Total Protein 6.0 L g/dl
(6.3-8.2)
11/18/24 14:23
11/18/24 14:23
Vital Signs
Initial and Last Documented VS:
Initial Vital Signs
Temp Pulse Resp BP Pulse Ox
97.6 F 71 16 147/75 96
11/18/24 14:15 11/18/24 14:15 11/18/24 14:15 11/18/24 14:15 11/18/24 14:15
Last Documented Vital Signs
Temp Pulse Resp BP Pulse Ox
97.6 F 72 16 134/72 96
11/18/24 14:15 11/18/24 18:15 11/18/24 18:15 11/18/24 19:52 11/18/24 18:15
<Juan Jack, DO - Last Filed: 11/18/24 19:10>
Orders/Labs/Results
Orders:
Orders
11/18/24 14:18
Electrocardiogram (*1) Urgent
Reason for Study: Abdominal Pain
EKG- Treatment ONCE
11/18/24 14:23
COVID-19 Antigen Urgent
Source: Nasal Swab
Complete Blood Count/With Diff Urgent
Comprehensive Metabolic Panel Urgent
Lipase Urgent
Comment: ADD ON
Influenza A+B Rapid Molecular Urgent
ERNESTO Source: Nasal Swab
Specimen Description:
11/18/24 16:01
Add On- LAB Urgent
Tests Added?: LIPASE
Morphine Sulfate 4 mg IV NOW STA
11/18/24 16:03
US Abdomen Complete/Upper Urgent
Comment:
Reason For Exam: RUQ PAIN
11/18/24 18:01
CR Chest - 2 Views Urgent
Comment:
Reason For Exam: RUQ pain, cough, congestion
Abnormal Lab Results
11/18/24
14:23
RBC 4.02 L 10^6/uL
(4.20-5.40)
Hct 35.8 L %
(37.0-47.0)
RDW 15.2 H %
(11.5-14.5)
Absolute Monos (auto) 0.8 H 10^3/uL
(0.1-0.6)
Lymphocytes % 18.7 L %
(20.5-51.1)
Monocytes % 9.6 H %
(1.7-9.3)
Sodium 134 L mmol/L
(135-145)
Potassium 3.2 L mmol/L
(3.5-5.1)
BUN 19 H mg/dl
(7-17)
Glucose 134 H mg/dl
(70-99)
Total Protein 6.0 L g/dl
(6.3-8.2)
11/18/24 14:23
11/18/24 14:23
Vital Signs
Initial and Last Documented VS:
Initial Vital Signs
Temp Pulse Resp BP Pulse Ox
97.6 F 71 16 147/75 96
11/18/24 14:15 11/18/24 14:15 11/18/24 14:15 11/18/24 14:15 11/18/24 14:15
Last Documented Vital Signs
Temp Pulse Resp BP Pulse Ox
97.6 F 72 16 134/72 96
11/18/24 14:15 11/18/24 18:15 11/18/24 18:15 11/18/24 19:52 11/18/24 18:15
<Alex Lpoez MD, Resident - Last Filed: 11/18/24 20:21>
MDM/Problems Addressed
MDM/Problems Addressed:
This is a 74-year-old female who presents with right upper quadrant tenderness radiating to the back. Physical examination with focal tenderness on palpation of right upper quadrant. Will evaluate with an ultrasound for biliary pathology. CBC,
CMP unremarkable. Check lipase. IV morphine for pain.
<Alex Lopez MD, Resident - Last Filed: 11/18/24 20:21>
*Critical Care Note
Total Time (30-74mins, 75-104mins- exclusive of procedures): Not Applicable
<Alex Lopez MD, Resident - Last Filed: 11/18/24 20:21>
Update Note
Update Note:
ultrasound indicative of acute cholelithiasis. Chest x-ray with no acute pathology. Patient reports symptoms of pain have improved. Recommend outpatient follow-up with surgery. In the meantime bland low-fat diet, Tylenol for pain control.
ED Attending Note
<Alex Lopez MD, Resident - Last Filed: 11/18/24 20:21>
-
Portions of this chart may have been created with voice recognition software.� Occasional wrong word or��sound alike� substitutions may have occurred due to the inherent limitations of voice recognition software.
<Juan Jack DO - Last Filed: 11/18/24 19:10>
ED Attending Note
Patient seen and examined by attending physician: Yes
I performed a history and physical exam of patient and discussed management with resident, I reviewed resident's note and agree with documented findings and plan of care.: Yes
ED Attending Note:
74-year-old female's been ill with upper respiratory symptoms but also has had pain in the right upper quadrant rating to the right back. He states sometimes sort of comes and goes. Sometimes it is in the back rating forwards and lies in the
abdomen rating backward. Cannot tie it to eating. No nausea or vomiting but has been bloated because she has been on steroids. She admits that she has been on steroids because of polymyalgia rheumatica. Wean off. No fevers. No hemoptysis. No
pleuritic pain. She is on anticoagulation due to history of DVT and PE. Exam: Mild tenderness in right upper quadrant. Pain better on my examination. Abdomen with mild distention but normal bowel sounds. Assessment and plan: Suspect chest x-ray
is atelectasis. Do not suspect pneumonia. Patient does feel better and will refer for outpatient follow-up as there is no evidence of acute cholecystitis. Suspect symptoms related to acute cholelithiasis. Ultrasound shows normal caliber aorta
Discharge Plan
Departure
Patient Disposition: Home (Routine Discharge)
Date of Disposition: 11/18/24
Time of Disposition: 19:34
Patient with high blood pressure during this ER visit?: Yes
Discharge Problem:
Cholelithiasis
Instructions: Gallstones (DC)
Prescriptions:
No Action
simvastatin 10 MG tablet
10 mg PO HS
amitriptyline 10 mg Tablet
40 mg PO HS Qty: 0
omeprazole magnesium [Prilosec OTC] 20 MG tablet,delayed release (DR/EC)
20 mg PO DAILY
fosinopril 20 MG tablet
20 mg PO DAILY
hydrochlorothiazide 12.5 MG capsule
12.5 mg PO DAILY
diphenhydramine-acetaminophen [Tylenol PM Extra Strength] 1 EACH tablet
2 tab PO HS PRN (Reason: PAIN/SLEEP)
diltiazem HCl 120 mg capsule,extended release 24hr
120 mg PO DAILY
azelastine 137 mcg (0.1 %) aerosol,spray
1 spray INTRANASAL BID
amoxicillin-pot clavulanate 875-125 mg tablet
1 tab PO Q12H
magnesium citrate 125 mg Capsule
120 mg PO HS
oxycodone-acetaminophen [Percocet] 5-325 mg tablet
1 tab PO Q4HPRN PRN (Reason: pain) Qty: 15 0RF
Eliquis DVT-PE Treat 30D Start 5 mg (74 tabs) tablets,dose pack
See Rx Instructions .ROUTE .COMPLEX Qty: 74 0RF
Rx Instructions:
orally per package directions
Referrals:
Clemente Sullivan MD [Active] -
Activity Restrictions/Additional Instructions:
Please return for any worsening symptoms.
You may return at any time if you have further concerns.
Your abdominal ultrasound shows a 1.5 cm mobile calculus. The surgeon's information is in your discharge paperwork.
Please follow up with surgeon at the next available appointment.
In the meantime, recommend Tylenol for pain, bland Low fat diet.
If pain worsens, return back to the ED for evaluation.
Thank you for choosing [facility].
Interventions
Interventions:
*Risk Screen - Suicide Last Done: 11/18/24 14:15
*General Assessment Last Done: 11/18/24 15:17
*Neglect/Abuse Screening Last Done: 11/18/24 14:15
*ED- Fall Risk Assessment Last Done: 11/18/24 15:17
*ED COVID-19 Vaccine History Last Done: 11/18/24 15:17
*Nursing Disposition Last Done: 11/18/24 20:07
EH-Lhtqju-Tbzopyistw Assessment Last Done: 11/18/24 15:18
Discharge Date and Time
Discharge Date/Time: 11/18/24 20:07
Print Language: GUAMANIAN
[2024-11-18] MEDS: MORPHINE SULFATE 4 MG IV (16:15)
[2024-11-18 16:33] LABS: Lipase 161 U/L (23-300)
[2024-11-18 18:13] VITALS: BP 125/70
[2024-11-18 18:15] VITALS: BP 125/70
[2024-11-18 19:52] VITALS: BP 134/72
== END 2024-11-18 20:07 | disposition home or self-care (01) ==
LOC: EMR 14:13
PROVIDERS: Emergency Medicine; EMERGENCY PHYSICIAN Emergency Medicine; FAMILY PHYSICIAN Family Medicine
DX: K80.20 Calculus of gallbladder without cholecystitis without obstruction (principal); R10.11 Right upper quadrant pain; M35.3 Polymyalgia rheumatica; Z79.01 Long term (current) use of anticoagulants; Z85.528 Personal history of other malignant neoplasm of kidney; Z86.711 Personal history of pulmonary embolism; Z86.718 Personal history of other venous thrombosis and embolism; Z90.5 Acquired absence of kidney
CPT/HCPCS: 99284; 96374; 71046; 76700; 80053; 83690; 85025; 87502; 87811; 93005

== ENCOUNTER → 2024-11-21 12:59 | Outpatient (REF) | payer MEDICARE, OTHER, SELFPAY ==
[2024-11-21 14:23] LABS: % Basophils 0.3 % (0-2); % Immature Granulocytes 0.5 % (0-0.5); % Lymphocytes 15.8 % (20.5-51.1); % Monocytes 8.4 % (1.7-9.3); Absolute Eosinophils 0.1 10^3/uL (0-0.7); Absolute Immature Granulocytes 0.1 10^3/uL (0-0.05); Absolute Lymphocytes 2.1 10^3/uL (1.2-3.4); Absolute Monocytes 1.1 10^3/uL (0.1-0.6); Absolute Neutrophils 9.8 10^3/uL (1.4-6.5); Hematocrit 36.4 % (37.0-47.0); Hemoglobin 12.1 g/dL (12.0-16.0); Mean Corp Hgb Conc. 33.2 g/dL (33.0-37.0); Mean Corpuscular Hgb 30.1 pg (27.0-31.0); Mean Corpuscular Volume 90.5 fL (81.0-99.0); Mean Platelet Volume 9.5 fL (7.4-10.4); Nucleated Red Blood Cells % 0 %; Platelet Count 351 10^3/uL (130-400); Red Blood Cell Count 4.02 10^6/uL (4.20-5.40); White Blood Cell Count 13.2 10^3/uL (4.8-10.8)
== END ==
LOC: REG 12:59
PROVIDERS: ATTENDING PHYSICIAN Nurse Practitioner Primary Care; FAMILY PHYSICIAN Family Medicine
DX: C64.1 Malignant neoplasm of right kidney, except renal pelvis (principal); I26.99 Other pulmonary embolism without acute cor pulmonale; D47.2 Monoclonal gammopathy; I82.402 Acute embolism and thrombosis of unspecified deep veins of left lower extremity
CPT/HCPCS: 36415; 85025

== ENCOUNTER 2024-11-23 22:58 | Observation (INO) | payer MEDICARE, OTHER, SELFPAY ==
[2024-11-23 16:25] VITALS: BP 147/78
[2024-11-23 16:44] LABS: % Basophils 0.4 % (0-2); % Eosinophils 1.1 % (0-6); % Immature Granulocytes 0.4 % (0-0.5); % Lymphocytes 18.1 % (20.5-51.1); % Monocytes 7.4 % (1.7-9.3); % Neutrophils 72.6 % (42.2-75.2); Absolute Basophils 0.1 10^3/uL (0-0.2); Absolute Eosinophils 0.1 10^3/uL (0-0.7); Absolute Lymphocytes 2.1 10^3/uL (1.2-3.4); Absolute Monocytes 0.8 10^3/uL (0.1-0.6); Absolute Neutrophils 8.2 10^3/uL (1.4-6.5); Hematocrit 35.1 % (37.0-47.0); Hemoglobin 12.1 g/dL (12.0-16.0); Mean Corp Hgb Conc. 34.5 g/dL (33.0-37.0); Mean Corpuscular Hgb 30.5 pg (27.0-31.0); Mean Corpuscular Volume 88.4 fL (81.0-99.0); Nucleated Red Blood Cells % 0 %; Platelet Count 329 10^3/uL (130-400); Red Blood Cell Count 3.97 10^6/uL (4.20-5.40); Red Cell Dist. Width 14.7 % (11.5-14.5); White Blood Cell Count 11.3 10^3/uL (4.8-10.8)
[2024-11-23 17:12] LABS: ALT (SGPT) 18 U/L (0-35); AST (SGOT) 15 U/L (14-36); Albumin 3.6 g/dl (3.5-5.0); Alkaline Phosphatase 122 U/L (38-126); Blood Urea Nitrogen 15 mg/dl (7-17); Calcium 10.8 mg/dl (8.4-10.2); Carbon Dioxide 25 mmol/L (22-30); Chloride 102 mmol/L (98-107); Glucose 147 mg/dl (70-99); Lipase 123 U/L (23-300); Potassium 3.2 mmol/L (3.5-5.1); Sodium 135 mmol/L (135-145); Total Bilirubin 0.7 mg/dl (0.2-1.3); Total Protein 5.9 g/dl (6.3-8.2); eGFR > 60.00
[2024-11-23] MEDS: DILAUDID 0.5 MG IV ×2 (19:07→22:28)
[2024-11-23] MEDS: KCL 40 MEQ PO (19:08)
--- NOTE | 2024-11-23 19:12 | ED.GENMED ---
History of Present Illness
General
Chief Complaint: Abdominal Pain
Source: patient and records
Exam Limitations: none
Time Seen by Provider: 11/23/24 18:50
History of Present Illness
History of Present Illness:
74yoF with a history of renal cell carcinoma s/p nephrectomy, DVT on Eliquis, and polymyalgia rheumatica presenting for evaluation of abdominal pain. Patient was seen in the ED on 11/18/24 for right upper quadrant pain. Ultrasound showed
cholelithiasis and she was diagnosed with biliary colic. She subsequently followed up with general surgery and is scheduled for a cholecystectomy next month. She reports constant pain in her right upper quadrant since this morning. Pain is much
more severe than her last ED visit and has been unrelenting throughout the day. She denies any fevers, chills, vomiting, chest pain, shortness of breath. She admits to eating pork chops for dinner last night.
Past History
Past History
ED Past Medical History: None, Cancer, GERD, HTN, Hypercholesterolemia and Other (PE/DVT)
ED Past Surgical History: Urological
Social History
Tobacco: Non-smoker
Alcohol: None
Drug: None
Personal:
Living: with family
Phy Exam
Physical Exam
Physical Exam:
Appears uncomfortable, non-toxic
General Physical Exam
General Presentation: well appearing
General Skin: warm and dry
General Habitus: normal and elderly
General Mental: alert
ENT Exam
ENT Exam: normocephalic
Cardiovascular Exam
Cardiovascular Exam: regular rate/rhythm
Pulmonary Exam
Pulmonary Exam: lungs clear, no respiratory distress, no rales, no crackles and no rhonchi
Gastrointestinal Exam
Gastrointestinal Exam: soft, non distended and other (+Focal tenderness to the RUQ. Stapleton's sign negative.)
Neurological Exam
Neurological Exam: alert
[place] Coma Scale
Eye Opening: Spontaneous
Verbal Response: Oriented
Motor Response: Obeys Commands
GCS Total Score: 15
Skin Exam
Skin Exam: normal color and warm/dry
Psychiatric Exam
Psychiatric Exam: normal mood/affect
Course
Orders/Labs/Results
Orders:
Orders
11/23/24 16:33
CMP [Comprehensive Metabolic Panel] Urgent
Complete Blood Count/With Diff Urgent
Lipase Urgent
11/23/24 18:51
Potassium Chloride [KCl] 40 meq PO NOW STA
11/23/24 18:58
HYDROmorphone [Dilaudid] 0.5 mg IV NOW STA
US Abdomen Complete/Upper Urgent
Comment:
Reason For Exam: Worsening RUQ pain
11/23/24 20:42
CT Abd/pelvis W Iv Cont Urgent
Comment:
Reason For Exam: RUQ pain
11/23/24 22:03
HYDROmorphone [Dilaudid] 0.5 mg IV NOW STA
11/23/24 22:39
Admit/Transfer Patient As Directed
Co-Sign Provider:
Level of Care: Observation services
Assign to:: Medical/Surgical
Physician / Group: hospitalist
Diagnosis: biliary colic
11/23/24 22:40
PRN Pain Medication Management As Directed
May give lesser potent ordered pain med per pt: Yes
preference::
Protocol:: Medication orders for pain may be administered in a
manner that supports deferring to patient preference
when the pt is:
- Requesting an ordered lesser potent pain medication.
Least to most potent pain medications are defined
as: acetaminophen < NSAID < tramadol < opioids
(morphine, oxycodone, hydromorphone).
- Requesting a lesser dose of the same medication IF
ORDERED.
- Requesting a less intrusive route of administration
if both routes are prescribed by the provider (PO <
IV).
11/23/24 22:41
Code Status As Directed
Resuscitation Status: Full Code
11/23/24 22:52
Amitriptyline [Elavil] 10 mg PO NOW STA
Cefuroxime Axetil [Ceftin] 500 mg PO NOW STA
11/23/24 23:00
Flush (0.9% Sodium Chloride) [Flush (Nss)] See Dose Instructions IV PER PROTOCOL
Abnormal Lab Results
11/23/24
16:33
WBC 11.3 H 10^3/uL
(4.8-10.8)
RBC 3.97 L 10^6/uL
(4.20-5.40)
Hct 35.1 L %
(37.0-47.0)
RDW 14.7 H %
(11.5-14.5)
Absolute Neuts (auto) 8.2 H 10^3/uL
(1.4-6.5)
Absolute Monos (auto) 0.8 H 10^3/uL
(0.1-0.6)
Lymphocytes % 18.1 L %
(20.5-51.1)
Potassium 3.2 L mmol/L
(3.5-5.1)
Glucose 147 H mg/dl
(70-99)
Calcium 10.8 H mg/dl
(8.4-10.2)
Total Protein 5.9 L g/dl
(6.3-8.2)
11/23/24 16:33
11/23/24 16:33
Vital Signs
Initial and Last Documented VS:
Initial Vital Signs
Temp Pulse Resp BP Pulse Ox
97.9 F 79 21 147/78 93
11/23/24 16:25 11/23/24 16:25 11/23/24 16:25 11/23/24 16:25 11/23/24 16:25
Last Documented Vital Signs
Temp Pulse Resp BP Pulse Ox
97.9 F 78 16 150/82 95
11/23/24 16:25 11/23/24 23:09 11/23/24 23:09 11/23/24 23:00 11/23/24 23:04
MDM/Problems Addressed
Differential Diagnosis Includes:
74yoF here with RUQ pain. Recently diagnosed with cholelithiasis and has a cholecystectomy scheduled next month. Pain is worse today. No f/c. She appears uncomfortable on exam. There is focal tenderness to the right upper quadrant. Differential
diagnosis includes but is not limited to: Biliary colic, cholecystitis, pancreatitis
Initial ED plan: Labs obtained in triage. White count minimally elevated at 11.3. LFTs and lipase normal. Will check upper abdominal ultrasound. IV Dilaudid for pain.
*Critical Care Note
Total Time (30-74mins, 75-104mins- exclusive of procedures): Not Applicable
Update Note
Update Note:
Ultrasound shows cholelithiasis without signs of cholecystitis. Case was discussed with general surgery who requested CT. CT negative for acute findings. Patient requiring multiple doses of Dilaudid for pain control. Will admit for further
management.
ED Attending Note
-
Portions of this chart may have been created with voice recognition software.� Occasional wrong word or��sound alike� substitutions may have occurred due to the inherent limitations of voice recognition software.
Discharge Plan
Departure
Patient Disposition: Admit
Date of Disposition: 11/23/24
Time of Disposition: 22:24
Presentation/result/management discussed w/ accepting MD/DO: Hospitalist
Discharge Problem:
Cholelithiasis, Intractable abdominal pain
Interventions
Interventions:
*Risk Screen - Suicide Last Done: 11/23/24 16:25
*General Assessment Last Done: 11/23/24 23:03
*Neglect/Abuse Screening Last Done: 11/23/24 16:25
*ED- Fall Risk Assessment Last Done: 11/23/24 23:03
*ED COVID-19 Vaccine History Last Done: 11/23/24 23:03
*Nursing Disposition Last Done: 11/23/24 23:16
NG-Qzdgyk-Vljqpxfavr Assessment Last Done: 11/23/24 21:34
[2024-11-23 21:28] VITALS: BP 144/83
[2024-11-23 22:00] VITALS: BP 135/90
--- NOTE | 2024-11-23 22:29 | HPS.HSE ---
Family Physician
-
Family Physician: Ellis Hi
Chief Complaint
-
Abdominal pain
History of Present Illness
This is a 74-year-old female with past medical history significant for hypertension, cholelithiasis, depression and anxiety presenting to the emergency department with abdominal pain.
Patient was seen in the emergency department about 5 days ago with abdominal pain. At the time she was diagnosed with biliary colic. She followed up with visit to surgery about 2 days ago. She had a scheduled procedure in November. In the meantime
she was told to return to the emergency department if she had recurrent pain.
Patient reports that she had recurrence of the pain today. She reports localization to the right upper quadrant. It is nonradiating. She denies any urinary symptoms. She denies fevers or chills. She denies any changes to the color of her skin,
eyes, urine or stool. She has no known sick contacts.
She is currently taking cefuroxime after being diagnosed with a upper respiratory infection about 2 weeks ago.
Emergency Department she was afebrile and hemodynamically stable. CBC shows white count 11.3 with hemoglobin of 10.1 and normal platelet. Electrolytes notable for a potassium of 3.2 but otherwise unremarkable stop BUN/creatinine were normal,
glucose normal. LFTs were completely normal. Total bilirubin was normal.
Ultrasound of the abdomen pelvis showing cholelithiasis without sonographic evidence of acute cholecystitis. Otherwise essentially unremarkable limited abdominal ultrasound. The CT scan was also done which shows no acute findings except for
cholelithiasis.
Medical History
Past Medical History
Past Medical History: Reports Cancer (Renal cell cancer status post nephrectomy), GERD (Dysphagia status post EGD), HTN and Other (PMR,)
Additional Past Medical History:
History of pulmonary embolism and DVT
Past Surgical History: Reports Gynocological (ovarian cystectomy) and Orthopedic (Right knee replacement, Left TKR, L4-5 ILESI SPB, Left L3-4 ILESI SPB , B/L L4-5,L5-S1 RFA WITH SED, RT SIJI NO SED, B/L SIJI NO SED, B/L L4 TFESI NO SED )
Social History
Tobacco: Former Smoker
Alcohol: Occasional
Drug: None
Living: With Family
Family History
Family History: Not pertinent
Allergies / Home Medications
Allergies reflects when Allergies were last updated in [facility].
Home Medications with original date entered in [facility]
Allergy/Medication List:
Allergies
Allergy/AdvReac Type Severity Reaction Status Date / Time
grass, dust, mold Allergy nasal Uncoded 06/20/24 09:02
congestion
Home Medications
amitriptyline 10 mg tablet 40 mg PO HS ##0 03/22/10
simvastatin 10 mg tablet 10 mg PO HS 03/22/10
omeprazole magnesium 20 mg tablet,delayed release (Prilosec OTC) 20 mg PO DAILY 03/03/13
fosinopril 20 mg tablet 20 mg PO DAILY 03/25/19
hydrochlorothiazide 12.5 mg capsule 12.5 mg PO DAILY 03/25/19
diphenhydramine 25 mg-acetaminophen 500 mg tablet (Tylenol PM Extra Strength) 2 tab PO HS PRN PAIN/SLEEP 06/12/20
amoxicillin 875 mg-potassium clavulanate 125 mg tablet 1 tab PO Q12H 08/31/23
azelastine 137 mcg (0.1 %) nasal spray 1 spray intranasal BID 08/31/23
diltiazem HCl 120 mg capsule,extended release 24 hr 120 mg PO DAILY 08/31/23
magnesium citrate 125 mg capsule 120 mg PO HS 08/31/23
oxycodone-acetaminophen 5 mg-325 mg tablet (Percocet) 1 tab PO Q4HPRN PRN pain #15 tabs 08/31/23
apixaban 5 mg (74 tabs) tablets in a dose pack (Eliquis DVT-PE Treat 30D Start) See Rx Instructions PO .COMPLEX #74 ea 06/20/24
Review of Systems
-
History Source: Patient
Constitutional: Reports No Symptoms
EENT: Reports No Symptoms
Respiratory: Reports No Symptoms
Cardiac: Reports No Symptoms
Abdomen/GI: Reports Abdominal Pain
: Reports No Symptoms
Musculoskeletal: Reports No Symptoms
Skin: Reports No Symptoms
Neurological: Reports No Symptoms
Endocrine: Reports No Symptoms
Hematologic/Lymphatic: Reports No Symptoms
Psych: Reports No Symptoms
Physical Exam
Vital Signs
Vital Signs
Temp Pulse Resp BP Pulse Ox
97.9 F 79 16 144/83 94
11/23/24 16:25 11/23/24 21:33 11/23/24 21:33 11/23/24 21:28 11/23/24 21:33
Physical Exam
General: Well Developed, Well Nourished, No Apparent Distress and Comfortable
HEENT: NormoCephalic, Anicteric, Moist mucous membranes and Atraumatic
Respiratory: Clear
Cardiac: S1/S2 and Regular Rhythm
Breast: Deferred by me
GI: Soft, Non Distended, Normal Bowel Sounds and Tender
Rectal: Deferred by Provider
Genito-urinary: Deferred by me
Musculoskeletal: No Clubbing, No Cyanosis and No Edema
Skin: Warm
Neuro: AO x 3 and Nonfocal/grossly intact
Hematologic/Lymphatic: No Lymphadenopathy
Laboratory Results
-
11/23/24 16:33
11/23/24 16:33
Laboratory Results
Total Bilirubin 0.7 mg/dl (0.2-1.3) 11/23/24 16:33
AST 15 U/L (14-36) 11/23/24 16:33
ALT 18 U/L (0-35) 11/23/24 16:33
Alkaline Phosphatase 122 U/L (38-126) 11/23/24 16:33
Lipase 123 U/L (23-300) 11/23/24 16:33
Data Reviewed
-
CT Scan: Report Reviewed by me
Ultrasound: Report Reviewed by me
Lab Data: Labs Reviewed by me
Old Records: Reviewed
Impression/Plan
-
IMPRESSION:
Patient with recurrent biliary colic here with abdominal pain. Imaging is negative for acute cholecystitis. He does show cholelithiasis. There is no choledocholithiasis. There is no cholangitis. LFTs were normal.
PLAN:
1. Biliary colic - cholelithiasis, she is pending surgery in november
- admit to med/surg obs
- npo for now
- pain control and anti-emetics
- IV fluids
- trend lfts
- no indication for GI consultation
- surgery aware and consulted.
2. HTN
- continue home medications
3. VTE
- on apixaban, last dose am today, holding apixaban pending surgical evaluation in am
4. URI
- continue cefuroxime to complete course
DVT PPX - SCDs for now
Code status - full code
[2024-11-23 23:00] VITALS: BP 150/82
[2024-11-23 23:03] VITALS: BMI 28.1
[2024-11-23] MEDS: CEFTIN 500 MG PO (23:25)
[2024-11-23] MEDS: ELAVIL 10 MG PO (23:25)
[2024-11-23 23:50] VITALS: BP 152/94
[2024-11-23 23:58] VITALS: BMI 28.2
--- NOTE | 2024-11-24 00:15 | PTCARENOTE ---
Pt a 74-year-old female arrived from ED at 23:50. Pt's PMH significant for hypertension, cholelithiasis, depression and anxiety presenting to the emergency department with abdominal pain. She is currently taking cefuroxime after being diagnosed with
a upper respiratory infection about 2 weeks ago. Electrolytes notable for a potassium of 3.2, 40meq PO given in ED, electrolytes otherwise unremarkable. Ultrasound of the abdomen pelvis & CT scan showed cholelithiasis without sonographic evidence of
acute cholecystitis. Pt had IV pain meds in ED, Currently denies pain. Pt AOx3, bed in a low position, call light in reach, care ongoing.
[2024-11-24] MEDS: D5LR 1000 IV (00:30)
[2024-11-24 08:08] LABS: Hematocrit 34.5 % (37.0-47.0); Hemoglobin 11.7 g/dL (12.0-16.0); Mean Corp Hgb Conc. 33.9 g/dL (33.0-37.0); Mean Corpuscular Hgb 30.6 pg (27.0-31.0); Mean Corpuscular Volume 90.3 fL (81.0-99.0); Mean Platelet Volume 8.9 fL (7.4-10.4); Platelet Count 312 10^3/uL (130-400); Red Blood Cell Count 3.82 10^6/uL (4.20-5.40); Red Cell Dist. Width 14.9 % (11.5-14.5); White Blood Cell Count 8.9 10^3/uL (4.8-10.8)
[2024-11-24 08:09] LABS: INR 1.18; PT 15.4 Sec (11.4-14.6)
[2024-11-24 08:15] VITALS: BP 137/68
[2024-11-24 08:38] LABS: ALT (SGPT) 16 U/L (0-35); AST (SGOT) 15 U/L (14-36); Albumin 3.4 g/dl (3.5-5.0); Alkaline Phosphatase 115 U/L (38-126); Blood Urea Nitrogen 12 mg/dl (7-17); Calcium 10.2 mg/dl (8.4-10.2); Carbon Dioxide 25 mmol/L (22-30); Chloride 106 mmol/L (98-107); Direct Bilirubin 0.2 mg/dl (0.0-0.4); Estimated Creatinine Clearance 73 ml/min; Glucose 124 mg/dl (70-99); Potassium 3.8 mmol/L (3.5-5.1); Sodium 139 mmol/L (135-145); Total Bilirubin 0.6 mg/dl (0.2-1.3); Total Protein 5.6 g/dl (6.3-8.2); eGFR > 60.00
--- NOTE | 2024-11-24 09:00 | CON.GS ---
Addendum entered and electronically signed by Cain Bearden MD 11/24/24 11:43:
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 Herbert 2012
c/b incisional hernia s/p robotic repair with IPOM Ventrio ST 11 x [address] Sullivan in 2017. Ms. Maynard states that over the past week she has had intermittent episodes of RUQ abdominal pain. She states that her initial attack began on
Wednesday (11/18) prompting presentation to the ED. She was diagnosed with symptomatic cholelithiasis at that time. She was discharged with outpatient follow-up. She met with Dr. Bairon Henderson on 11/22 with plans for an outpatient CT scan as well as
scheduling for laparoscopic cholecystectomy. She Nelson presents to the ED with a recurrent attack of RUQ abdominal pain. Currently she states that her symptoms have significantly improved and almost resolved. She reports associated radiation of
her pain to her upper RIGHT back. She denies any clear association with oral intake. She reports some nausea, but denies any vomiting. No fevers or chills. She denies any jaundice, pale stools, or tea colored urine. No fluctuations in GI
function.
Gen: NAD
Abd: soft, minimal discomfort in RUQ, negative Stapleton's sign, obese, ND, non-peritoneal, no palpable hernia recurrence
Labs, ultrasound, and CT scan were reviewed.
Patient is a 74 yo F p/w persistent episodes of RUQ abdominal pain most likely related to symptomatic cholelithiasis
Previous discussions on the natural history and pathophysiology of biliary and stone disease. Workup thus far was reviewed. Options for management including timing of her cholecystectomy were considered and discussed. Given her representation and
mild discomfort recommend cholecystectomy during this admission. She is at increased risk for operative bleeding at this time given her active anticoagulation. Given her stability and improvement in symptoms would recommend complete washout of 48
hours for her Eliquis prior to proceeding with surgical intervention. Plan for a laparoscopic cholecystectomy with possible cholangiogram during this presentation, timing TBD over the weekend pending availability.
-- Laparoscopic cholecystectomy during this admission timing TBD, at earliest tomorrow after washout of her Eliquis
-- Clears, NPO PM
-- Abx: Ceftin
-- Continue to hold Eliquis
Original Note:
Consultation
-
Date/Time Consultation Performed: 11/24/24 0845
Medical History
-
Chief Complaint: RUQ pain
History of Present Illness:
74 yo female with a h/o right nephrectomy for renal cell ca, left oophorectomy for cyst, RLQ incisional hernia repair with mesh, and pe/dvts on eliquis (LD 11/23/24 in the morning) who presents with RUQ. She had a previous episode approximately one
week ago which prompted her to present to the ED where she was noted to have cholelithiasis and diagnosed with biliary colic. She followed as an outpatient with Dr. Henderson with arrangements made for outpatient cholecystectomy. She was following a
low fat diet, but yesterday had recurrence of symptoms lasting throughout the day causing her to present to the ED once again. She notes the pain is higher up on the RUQ and radiates into her back. She denies associated nausea, vomiting, diarrhea or
acholic stools. She denies fevers or chills. Of note, she has been on a cephalosporin CURRICULUM AND ASSESSMENT COORDINATOR for an URI.
Past Medical History
Past Medical History: Cancer (renal, melanoma), HTN, Hypercholesterolemia, Psychiatric (depression/anxiety) and Other (PE/DVT's on Eliquis)
Past Surgical History: Gynecological (left oophorectomy), Hernia Repair (RLQ incisional hernia repair with Mesh (Dr Sullivan 2016)), Orthopedic (left wrist, ankle surgery, right TKR, left hammertoe), Urological (Right hand assisted laparoscopic
nephrectomy 2012) and Other (right nephrectomy)
Social History
Tobacco: Former Smoker
Alcohol: None
Family History
Family History: Reviewed & Not Pertinent
Allergies / Home Medications
Allergy/AdvReac Type Severity Reaction Status Date / Time
grass, dust, mold Allergy nasal Uncoded 06/20/24 09:02
congestion
�Medication �Instructions �Recorded �Confirmed �Type
amitriptyline 10 mg tablet 40 mg PO HS Mental Health/Anxiety 03/22/10 11/24/24 History
##0
simvastatin 10 mg tablet 10 mg PO HS High Cholesterol 03/22/10 11/24/24 History
omeprazole magnesium 20 mg 20 mg PO DAILY GERD 03/03/13 11/24/24 History
tablet,delayed release (Prilosec
OTC)
fosinopril 20 mg tablet 20 mg PO DAILY Blood Pressure 03/25/19 11/24/24 History
hydrochlorothiazide 12.5 mg capsule 12.5 mg PO DAILY Fluid 03/25/19 11/24/24 History
Retention/Swelling
diphenhydramine 25 2 tab PO HS PRN PAIN/SLEEP 06/12/20 11/24/24 History
mg-acetaminophen 500 mg tablet
(Tylenol PM Extra Strength)
amoxicillin 875 mg-potassium 1 tab PO Q12H Infection 08/31/23 11/24/24 History
clavulanate 125 mg tablet
azelastine 137 mcg (0.1 %) nasal 1 spray intranasal BID Congestion 08/31/23 11/24/24 History
spray
diltiazem HCl 120 mg 120 mg PO DAILY Heart 08/31/23 11/24/24 History
capsule,extended release 24 hr Disease/Condition
magnesium citrate 125 mg capsule 120 mg PO HS BOWEL 08/31/23 11/24/24 History
oxycodone-acetaminophen 5 mg-325 1 tab PO Q4HPRN PRN pain #15 tabs 08/31/23 11/24/24 Rx
mg tablet (Percocet)
apixaban 5 mg (74 tabs) tablets in See Rx Instructions PO .COMPLEX 06/20/24 11/24/24 Rx
a dose pack (Eliquis DVT-PE Treat #74 ea
30D Start)
Review of Systems
-
History Source: Patient
All other systems: Negative unless noted
A 10 point review of systems was completed, and was negative except as per HPI.
Physical Exam
Vital Signs
Temp Pulse Resp BP Pulse Ox
98.0 F 65 20 137/68 95
11/24/24 08:15 11/24/24 08:15 11/24/24 08:15 11/24/24 08:15 11/24/24 08:15
11/23/24 11/24/24 11/25/24
06:59 06:59 06:59
Actual Weight 79.333 kg
Body Mass Index (BMI) 28.2
Lab Results
11/24/24 07:48
11/24/24 07:48
WBC 8.9 10^3/uL (4.8-10.8) 11/24/24 07:48
Hgb 11.7 g/dL (12.0-16.0) L 11/24/24 07:48
Hct 34.5 % (37.0-47.0) L 11/24/24 07:48
Plt Count 312 10^3/uL (130-400) 11/24/24 07:48
Abs Immat Gran (auto) 0.0 10^3/uL (0-0.05) 11/23/24 16:33
Neutrophils % 72.6 % (42.2-75.2) 11/23/24 16:33
Physical Exam
General: Well Developed and Well Nourished
HEENT: Moist Mucous Membranes
Respiratory: Non Labored Respirations
GI: Soft, Non Tender and Non Distended
Skin: Warm and Dry
Neuro: Awake, Alert and AO x 3
Psych: Calm
Data Reviewed
-
CT Scan: Image Personally Visualized and interpreted, Report Reviewed by me, Discussed with Physician and Discussed with Patient
Ultrasound: Image Personally Visualized and interpreted, Report Reviewed by me, Discussed with Physician and Discussed with Patient
Labs: Labs Reviewed by me, Discussed with Physician and Discussed with Patient
Old Records: Reviewed
Assessment / Plan
-
74 yo female on Eliquis for h/o dvt/pe (LD 4/24 AM) presenting with recurrent biliary colic over the past week. US from prior ED visit as well as CT abd/pelvis from this presentation with cholelithiasis noted but no pericholecystic stranding, wall
thickening, etc which would indicate acute cholecystitis. Mild leukocytosis on presentation, now resolved. LFT's WNL. Afebrile, VSS.
Will plan laparoscopic cholecystectomy this admission after Eliquis washout, tentatively over the weekend pending OR availability
--Hold Eliquis in anticipation of surgery
--Ok for clear liquids today, will make NPO after MN for tentative OR
--Analgesics prn
--Medical management as per primary team
[2024-11-24] MEDS: CEFTIN 500 MG PO ×2 (09:16→19:48)
[2024-11-24] MEDS: ORETIC 12.5 MG PO (09:16)
[2024-11-24] MEDS: CARDIZEM CD 120 MG PO (09:16)
[2024-11-24] MEDS: ZESTRIL 20 MG PO (09:16)
[2024-11-24] MEDS: PROTONIX PO (09:24)
--- NOTE | 2024-11-24 11:00 | W.PN.HOSP.TC ---
Today's Communication/Plan
-
see outlined plan below
Assessment / Plan
Assessment / Plan
Assessment:
Biliary colic, acute on chronic
- abdominal imaging with cholelithiasis noted but no pericholecystic stranding, wall thickening, etc which would indicate acute cholecystitis
- GS evaluation; NPO p MN for lap ati (Eliquis being washed out)
- clears for now
- pain control, anti-emetics
Essential HTN
- continue MARIOLA/HCTZ/Cardizem
Hx of PE on Eliquis
- holding Eliquis for OR
Recent URI diagnosis
- continue previously prescribed Cefuroxime - will clarify planned duration
Hypokalemia
- repleted
DVT ppx: SCDs
Code: Full
Anticipated Discharge: > 48 hours
Subjective/Interval History
-
Date of Service: November 24, 2024
reports some RUQ discomfort currently
no nausea/vomiting/fevers
Objective Data
-
Labs:
Laboratory Results
11/24/24
07:48
WBC 8.9
Hgb 11.7 L
Hct 34.5 L
Plt Count 312
PT 15.4 H
INR 1.18
Sodium 139
Potassium 3.8
Chloride 106
Carbon Dioxide 25
BUN 12
Creatinine 0.7
Glucose 124 H
Calcium 10.2
Total Bilirubin 0.6
AST 15
ALT 16
Alkaline Phosphatase 115
Vital Signs:
Vital Signs
Temp Pulse Resp BP Pulse Ox
98.0 F 65 20 137/68 95
11/24/24 08:15 11/24/24 08:15 11/24/24 08:15 11/24/24 08:15 11/24/24 08:15
I&O
11/23/24 11/24/24 11/25/24
06:59 06:59 06:59
Intake Total 700 / 700
Balance 700 / 700
Physical Exam
-
General: No Apparent Distress
HEENT: Normocephalic and Atraumatic
Respiratory: Clear to Auscultation; Negative Wheezes
Cardiac: Regular Rhythm and S1/S2
GI: Soft, Nontender and Nondistended
Neuro: AO x 3
Hematologic / Lymphatic: No Lymphadenopathy
Psych: Calm
Data Reviewed
-
Total Time Spent with Patient (in minutes): 42
Labs: Labs Reviewed by me
[2024-11-24] MEDS: TORADOL 10 MG IV (11:45)
[2024-11-24] MEDS: D5LR 500 IV ×2 (12:02→17:46)
[2024-11-24] MEDS: D5LR IV (12:05)
[2024-11-24 15:49] VITALS: BP 127/54
[2024-11-24] MEDS: ELAVIL 40 MG PO (22:50)
[2024-11-24 23:05] VITALS: BP 141/76
[2024-11-25] VITALS (13 sets, daily range): BP systolic 115–146; BP diastolic 49–77
[2024-11-25 05:47] LABS: Hematocrit 33.4 % (37.0-47.0); Hemoglobin 11.4 g/dL (12.0-16.0); Mean Corp Hgb Conc. 34.1 g/dL (33.0-37.0); Mean Corpuscular Hgb 30.2 pg (27.0-31.0); Mean Corpuscular Volume 88.4 fL (81.0-99.0); Platelet Count 307 10^3/uL (130-400); Red Blood Cell Count 3.78 10^6/uL (4.20-5.40)
[2024-11-25 06:17] LABS: ALT (SGPT) 14 U/L (0-35); AST (SGOT) 14 U/L (14-36); Albumin 2.9 g/dl (3.5-5.0); Alkaline Phosphatase 102 U/L (38-126); Blood Urea Nitrogen 7 mg/dl (7-17); Calcium 10.2 mg/dl (8.4-10.2); Carbon Dioxide 27 mmol/L (22-30); Chloride 107 mmol/L (98-107); Estimated Creatinine Clearance 73 ml/min; Glucose 108 mg/dl (70-99); Potassium 3.7 mmol/L (3.5-5.1); Sodium 138 mmol/L (135-145); Total Bilirubin 0.6 mg/dl (0.2-1.3); Total Protein 5.1 g/dl (6.3-8.2); eGFR > 60.00
[2024-11-25] MEDS: ZESTRIL 20 MG PO (08:23)
[2024-11-25] MEDS: PROTONIX 40 MG PO (08:23)
[2024-11-25] MEDS: CEFTIN 500 MG PO ×2 (08:23→19:48)
[2024-11-25] MEDS: CARDIZEM CD 120 MG PO (08:24)
[2024-11-25] MEDS: ORETIC 12.5 MG PO (08:24)
--- NOTE | 2024-11-25 09:05 | W.PN.HOSP.TC ---
Today's Communication/Plan
-
lap tai today
Assessment / Plan
Assessment / Plan
Assessment:
Biliary colic, acute on chronic
- abdominal imaging with cholelithiasis noted but no pericholecystic stranding, wall thickening, etc which would indicate acute cholecystitis
- GS evaluation; NPO for lap tai today
- pain control, anti-emetics
Essential HTN
- continue MARIOLA/HCTZ/Cardizem
Hx of PE on Eliquis
- holding Eliquis; resume when cleared by GS post-op
Recent URI diagnosis
- continue previously prescribed Cefuroxime, day 04/11
Hypokalemia
- repleted
DVT ppx: SCDs
Code: Full
Anticipated Discharge: Within 24 hours
Subjective/Interval History
-
Date of Service: November 25, 2024
reports stable, but ongoing RUQ pain
for lap tai today
Objective Data
-
Labs:
Laboratory Results
11/25/24
05:03
WBC 9.0
Hgb 11.4 L
Hct 33.4 L
Plt Count 307
Sodium 138
Potassium 3.7
Chloride 107
Carbon Dioxide 27
BUN 7
Creatinine 0.7
Glucose 108 H
Calcium 10.2
Total Bilirubin 0.6
AST 14
ALT 14
Alkaline Phosphatase 102
Vital Signs:
Vital Signs
Temp Pulse Resp BP Pulse Ox
98.3 F 70 18 146/75 95
11/25/24 08:05 11/25/24 08:24 11/25/24 08:05 11/25/24 08:24 11/25/24 08:05
I&O
11/24/24 11/25/24 11/26/24
06:59 06:59 06:59
Intake Total 700 / 700 1440 / 1440
Balance 700 / 700 1440 / 1440
Physical Exam
-
General: No Apparent Distress
HEENT: Normocephalic and Atraumatic
Respiratory: Wheezes
Cardiac: Regular Rhythm and S1/S2
GI: Soft
Genito-urinary: No Costovertebral Tender
Neuro: AO x 3
Psych: Calm
Data Reviewed
-
Total Time Spent with Patient (in minutes): 44
Labs: Labs Reviewed by me
--- NOTE | 2024-11-25 09:58 | W.PN.GS2 ---
Today's Communication / Plan
-
`
Assessment / Plan
-
Assessment: 74 y/o female with acute biliary colic versus acute calculus cholecystitis.
Eliquis washout completed. Stable to proceed with cholecystectomy. Reviewed with patient indications for cholecystectomy which she strongly wishes to proceed with.
Laparoscopic cholecystectomy was reviewed in detail and alternative management options. The potential benefits and risks of the procedure were reviewed in detail, including but not limited to infectious or wound healing complications, bleeding, bile
leak, injury to biliary tree, iatrogenic injury to surrounding viscera and post cholecystectomy syndrome. Reviewed the typical postoperative recovery.
Any of the patient's concerns or questions were fully addressed and informed consent was obtained.
Plan: Patient remains bilateral scheduled for cholecystectomy today
Cefotetan 2 g IV ordered on-call to the OR
IV fluid hydration
Supportive care
Subjective Data
-
Date of Service: November 25, 2024
Patient seen and examined.
Reports right upper quadrant discomfort but acute pain has subsided.
Objective Data
-
Intake and Output
11/24/24 11/25/24 11/26/24
06:59 06:59 06:59
Intake Total 700 / 700 1440 / 1440
Balance 700 / 700 1440 / 1440
Intake:
Oral fluids 240 / 240
IV fluids (Total) 700 / 700 1200 / 1200
Other:
Number of approximated MODERATE 4 2
amounts of urine
Vital Signs
Temp Pulse Resp BP Pulse Ox
98.3 F 70 18 146/75 95
11/25/24 08:05 11/25/24 08:24 11/25/24 08:05 11/25/24 08:24 11/25/24 08:05
Lab Results
11/25/24 05:03
11/25/24 05:03
Calcium 10.2 mg/dl (8.4-10.2) 11/25/24 05:03
Magnesium 2.0 mg/dl (1.6-2.3) 11/24/24 07:48
Total Bilirubin 0.6 mg/dl (0.2-1.3) 11/25/24 05:03
Direct Bilirubin 0.2 mg/dl (0.0-0.4) 11/24/24 07:48
AST 14 U/L (14-36) 11/25/24 05:03
ALT 14 U/L (0-35) 11/25/24 05:03
Alkaline Phosphatase 102 U/L (38-126) 11/25/24 05:03
Total Protein 5.1 g/dl (6.3-8.2) L 11/25/24 05:03
Albumin 2.9 g/dl (3.5-5.0) L 11/25/24 05:03
Physical Exam
-
NAD AAO x 3
ABD: Soft, nondistended, mild tenderness palpation right upper quadrant
--- NOTE | 2024-11-25 10:08 | CM ---
communication and outreach manager reviewed patient's chart and met with patient and patient was admitted under OBS, [place] letter explained to patient and signed, patient lives lives with her spouse in a 2 story home, patient has a 1st floor set up with bed and bathroom,
patient is independent with adl's and ambulation, patient drives, patient for possible procedure today and then home with spouse when stable.
PCP: Dr. Hi
Pharmacy: [facility] in [place].
Plan; Home with spouse when stable, no needs.
--- NOTE | 2024-11-25 11:17 | PTCARENOTE ---
Telephone report given to RECRUITING COORDINATOR Dunia; @11:17 two PACU RNs arrived to [facility] and transported patient in bed for OR.
--- NOTE | 2024-11-25 11:52 | W.SUR.PREOP ---
Pre-Operative Surgical Note
-
I have examined this patient prior to the performance of the scheduled procedure.
The patient's condition is unchanged from the time of the current History and
Physical and the patient is able to undergo the scheduled procedure.
[2024-11-25] MEDS: STERILE WATER FOR INJECTION 10 ML IV (12:40)
[2024-11-25] MEDS: CEFOTAN 2000 MG IV (12:40)
--- NOTE | 2024-11-25 13:03 | W.IMMPOSTOP ---
Addendum entered and electronically signed by Clemente Sullivan MD 11/25/24 13:14:
#[id number]
Original Note:
Surgical Immed Post Op Note
-
Primary Surgeon: Clemente Sullivan MD
Assisting Surgeon: Dorcas Velazquez CLINICAL TECHNICIAN, SENIOR DYNAMICS CRM DEVELOPER-s
Pre-op Diagnosis: Acute biliary colic/symptomatic cholelithiasis
Post-op Diagnosis: Acute biliary colic/symptomatic cholelithiasis
Procedure Performed: Laparoscopic cholecystectomy
Anesthesia Type: GETA +0.25% Marcaine with epi
Specimen / Cultures: Gallbladder/none
Estimated Blood Loss: 4 mL
Complications: None immediate
Operative Findings: Physiologically distended gallbladder with stone. Cystic duct and artery individually isolated and controlled with clips. Gallbladder removed off liver bed intact and extracted at umbilical 12 mm trocar site. A few filmy
adhesions in the right lower quadrant adjacent to her incisional herniorrhaphy with mesh. No additional intra-abdominal findings incidental.
Plan: Low-fat diet postoperatively as tolerated
No further role for antibiotics postop from a cholecystectomy standpoint
Therapeutic anticoagulation/apixaban should be held for 72 hours postop
Otherwise stable for discharge from surgical standpoint
--- NOTE | 2024-11-25 13:47 | W.DS.TRANS ---
DC Summary - [facility]
-
Discharge Instructions:
Discharge Diagnosis/Procedures Acute biliary colic/symptomatic cholelithiasis.
Laparoscopic cholecystectomy
Diet As tolerated,Low Fat
Additional Diets Smaller meals initially after surgery as
abdominal bloating and distention may be common
for the first few days
Activity No strenuous activity
Driving Restrictions No driving for 24 hours
Bathing Restrictions OK to Shower
Wound Care Glue at surgical sites typically peels off in 2
to 3 weeks
Instructions:
Stand-Alone Forms:
Changes to Home Medications: No
Discharge Medications:
DC Medications w/original date entered in [facility]
amitriptyline 10 mg tablet 40 mg PO HS Mental Health/Anxiety ##0 03/22/10
simvastatin 10 mg tablet 10 mg PO HS High Cholesterol 03/22/10
omeprazole magnesium 20 mg tablet,delayed release (Prilosec OTC) 20 mg PO DAILY GERD 03/03/13
fosinopril 20 mg tablet 20 mg PO DAILY Blood Pressure 03/25/19
hydrochlorothiazide 12.5 mg capsule 12.5 mg PO DAILY Fluid Retention/Swelling 03/25/19
diphenhydramine 25 mg-acetaminophen 500 mg tablet (Tylenol PM Extra Strength) 2 tab PO HS PRN PAIN/SLEEP 06/12/20
azelastine 137 mcg (0.1 %) nasal spray 1 spray intranasal BID Congestion 08/31/23
diltiazem HCl 120 mg capsule,extended release 24 hr 120 mg PO DAILY Heart Disease/Condition 08/31/23
magnesium citrate 125 mg capsule 120 mg PO HS BOWEL 08/31/23
apixaban 5 mg (74 tabs) tablets in a dose pack (Eliquis DVT-PE Treat 30D Start) See Rx Instructions PO .COMPLEX #74 ea 06/20/24
cefuroxime axetil 500 mg tablet 500 mg PO BID #3 tabs 11/25/24
ondansetron 4 mg disintegrating tablet 4 mg PO Q6H PRN nausea and vomiting #20 tabs 11/25/24
oxycodone-acetaminophen 5 mg-325 mg tablet (Percocet) 1 tab PO Q4HPRN PRN pain #15 tabs 11/25/24
Home Medication Changes
Pending Results: No
Total time spent discharging patient (in min): 41
--- NOTE | 2024-11-25 14:10 | PTCARENOTE ---
Telephone report received from EMPLOYMENT ATTORNEYOPAL Duque; patient arrived from PACU @14:10 with IVF infusing, VSS, pain free, lap sites with surgical glue approximated.
[2024-11-25] MEDS: TYLENOL 650 MG PO (21:33)
[2024-11-25] MEDS: ELAVIL 40 MG PO (21:33)
[2024-11-26 03:00] VITALS: BP 120/68
[2024-11-26 05:57] LABS: Hematocrit 34.3 % (37.0-47.0); Hemoglobin 11.6 g/dL (12.0-16.0); Mean Corp Hgb Conc. 33.8 g/dL (33.0-37.0); Mean Corpuscular Hgb 30.1 pg (27.0-31.0); Mean Corpuscular Volume 89.1 fL (81.0-99.0); Mean Platelet Volume 9.1 fL (7.4-10.4); Platelet Count 320 10^3/uL (130-400); Red Blood Cell Count 3.85 10^6/uL (4.20-5.40); Red Cell Dist. Width 14.6 % (11.5-14.5); White Blood Cell Count 9.2 10^3/uL (4.8-10.8)
[2024-11-26 06:28] LABS: ALT (SGPT) 18 U/L (0-35); AST (SGOT) 16 U/L (14-36); Albumin 3.1 g/dl (3.5-5.0); Alkaline Phosphatase 109 U/L (38-126); Blood Urea Nitrogen 16 mg/dl (7-17); Calcium 10.1 mg/dl (8.4-10.2); Carbon Dioxide 24 mmol/L (22-30); Chloride 103 mmol/L (98-107); Estimated Creatinine Clearance 64 ml/min; Glucose 172 mg/dl (70-99); Potassium 3.9 mmol/L (3.5-5.1); Sodium 135 mmol/L (135-145); Total Bilirubin 0.6 mg/dl (0.2-1.3); Total Protein 5.2 g/dl (6.3-8.2); eGFR > 60.00
[2024-11-26 07:20] VITALS: BP 115/75
[2024-11-26] MEDS: CARDIZEM CD 120 MG PO (08:01)
[2024-11-26] MEDS: ORETIC 12.5 MG PO (08:01)
[2024-11-26] MEDS: CEFTIN 500 MG PO (08:02)
[2024-11-26] MEDS: PROTONIX 40 MG PO (08:02)
[2024-11-26] MEDS: ZESTRIL 20 MG PO (08:02)
--- NOTE | 2024-11-26 09:06 | W.PN.HOSP.TC ---
Today's Communication/Plan
-
dc home today
Assessment / Plan
Assessment / Plan
Assessment:
Biliary colic, acute on chronic
- abdominal imaging with cholelithiasis noted but no pericholecystic stranding, wall thickening, etc which would indicate acute cholecystitis
- s/p lap tai 11/25
- dc on pain control, anti-emetics
- GS OP f/u
Essential HTN
- continue MARIOLA/HCTZ/Cardizem
Hx of PE on Eliquis
- resume Eliquis Wednesday
Recent URI diagnosis
- continue previously prescribed Cefuroxime, day 05/11
Hypokalemia
- repleted
DVT ppx: SCDs
Code: Full
More than 30 minutes spent in discharge including
Final examination of the patient
Summarizing hospital stay
Instructions for continuing care to all relevant caregivers
Preparation of discharge records, prescriptions, and referral forms
Total time spent (in minutes):41
Anticipated Discharge: Today
Subjective/Interval History
-
Date of Service: November 26, 2024
resting comfortably
tolerated LFD well
Objective Data
-
Labs:
Laboratory Results
11/26/24
05:07
WBC 9.2
Hgb 11.6 L
Hct 34.3 L
Plt Count 320
Sodium 135
Potassium 3.9
Chloride 103
Carbon Dioxide 24
BUN 16
Creatinine 0.8
Glucose 172 H
Calcium 10.1
Total Bilirubin 0.6
AST 16
ALT 18
Alkaline Phosphatase 109
Vital Signs:
Vital Signs
Temp Pulse Resp BP Pulse Ox
98.3 F 91 18 115/75 99
11/26/24 07:20 11/26/24 07:20 11/26/24 07:20 11/26/24 07:20 11/26/24 07:20
I&O
11/25/24 11/26/24 11/27/24
06:59 06:59 06:59
Intake Total 1440 / 1440 755 / 755
Balance 1440 / 1440 755 / 755
Physical Exam
-
General: No Apparent Distress
HEENT: Normocephalic and Atraumatic
Respiratory: Clear to Auscultation; Negative Wheezes
Cardiac: Regular Rhythm and S1/S2
GI: Soft and Nontender
Neuro: AO x 3
Psych: Calm
Data Reviewed
-
Total Time Spent with Patient (in minutes): 42
Labs: Labs Reviewed by me
--- NOTE | 2024-11-26 09:13 | CM ---
Chart reviewed and plan is to home no needs.
Plan; Home no needs.
--- NOTE | 2024-11-26 10:13 | W.PN.SURGUPD ---
Surgical Update
Surgical Update
Patient seen and examined in postoperative follow-up.
Feels well, ate breakfast.
Minimal postoperative incisional pain.
AFVSS
NAD AAO x 3
ABD: Soft, nondistended, mild tenderness at incision sites. Incisions with glue dressings.
POD #1 status post lap tai
Doing well postop stable for discharge with outpatient surgical follow-up in 2 to 3 weeks
Therapeutic anticoagulation should be held approximately 72 hours postop, okay to resume Wednesday
[2024-11-26 11:23] VITALS: BP 144/81
== END 2024-11-26 12:01 | disposition home or self-care (01) ==
LOC: 2 SOUTH 22:58
PROVIDERS: Surgery; ADMITTING PHYSICIAN Internal Medicine; ATTENDING PHYSICIAN Internal Medicine; EMERGENCY PHYSICIAN Emergency Medicine; FAMILY PHYSICIAN Family Medicine; OTHER PHYSICIAN Surgery
PROC: 0FT44ZZ Resection of Gallbladder, Percutaneous Endoscopic Approach (ICD-10-PCS; 2024-11-25)
DX: K80.62 Calculus of gallbladder and bile duct with acute cholecystitis without obstruction (principal); R10.9 Unspecified abdominal pain; Z87.891 Personal history of nicotine dependence; I10 Essential (primary) hypertension; J06.9 Acute upper respiratory infection, unspecified; Z79.01 Long term (current) use of anticoagulants; E87.6 Hypokalemia
CPT/HCPCS: 47562; 88304; 74177; 76700; 80053; 82248; 83690; 83735; 85025; 85027; 85610; 96374; 96376; 99285; G0378; Q9967

== ENCOUNTER 2024-12-29 14:34 | Emergency (ER) | payer MEDICARE, OTHER, SELFPAY ==
[2024-12-29 14:34] VITALS: BMI 28.2
[2024-12-29 14:36] VITALS: BP 151/87
[2024-12-29 14:54] LABS: % Basophils 0.4 % (0-2); % Eosinophils 0.6 % (0-6); % Immature Granulocytes 0.5 % (0-0.5); % Lymphocytes 8.4 % (20.5-51.1); % Monocytes 8.5 % (1.7-9.3); % Neutrophils 81.6 % (42.2-75.2); Absolute Basophils 0.1 10^3/uL (0-0.2); Absolute Eosinophils 0.1 10^3/uL (0-0.7); Absolute Immature Granulocytes 0.1 10^3/uL (0-0.05); Absolute Lymphocytes 1.7 10^3/uL (1.2-3.4); Absolute Monocytes 1.7 10^3/uL (0.1-0.6); Absolute Neutrophils 16.3 10^3/uL (1.4-6.5); Hematocrit 40.6 % (37.0-47.0); Hemoglobin 13.7 g/dL (12.0-16.0); Mean Corp Hgb Conc. 33.7 g/dL (33.0-37.0); Mean Corpuscular Hgb 29.7 pg (27.0-31.0); Mean Corpuscular Volume 88.1 fL (81.0-99.0); Mean Platelet Volume 9.5 fL (7.4-10.4); Nucleated Red Blood Cells % 0 %; Platelet Count 332 10^3/uL (130-400); Red Blood Cell Count 4.61 10^6/uL (4.20-5.40); Red Cell Dist. Width 14.4 % (11.5-14.5)
[2024-12-29 15:10] LABS: ALT (SGPT) 19 U/L (0-35); AST (SGOT) 16 U/L (14-36); Albumin 3.9 g/dl (3.5-5.0); Alkaline Phosphatase 128 U/L (38-126); Blood Urea Nitrogen 14 mg/dl (7-17); Calcium 10.5 mg/dl (8.4-10.2); Chloride 101 mmol/L (98-107); Glucose 149 mg/dl (70-99); Lipase 134 U/L (23-300); Potassium 3.7 mmol/L (3.5-5.1); Sodium 132 mmol/L (135-145); Total Bilirubin 0.9 mg/dl (0.2-1.3); Total Protein 6.3 g/dl (6.3-8.2); eGFR > 60.00
[2024-12-29 15:12] LABS: Carbon Dioxide 25 mmol/L (22-30)
[2024-12-29 15:14] LABS: Troponin I < 0.012 ng/ml
[2024-12-29 16:44] VITALS: BP 157/82
[2024-12-29 17:00] VITALS: BP 136/71
--- NOTE | 2024-12-29 17:59 | ED.GENMED ---
History of Present Illness
<Ying Gibson CRIMINAL PSYCHOLOGIST - Last Filed: 12/30/24 02:51>
General
Chief Complaint: Cardiac Symptoms
Source: patient
Exam Limitations: none
Time Seen by Provider: 12/29/24 17:58
Nursing documentation reviewed up to this point in time: agreed with
History of Present Illness
History of Present Illness:
74-year-old female with history of DVT on Eliquis, questionable polymyalgia rheumatica, chronic back pain followed by pain management, HTN, IBS, remote history of renal cancer with right nephrectomy, cholecystectomy 10/2024,
presents for pain mid chest and thoracic pain under both breasts that started upon getting OOB 9:30 this a.m. Pain is constant, worse with movement, deep breaths and pushing on the area. Has had a flare of her chronic mid to upper back pain for
several weeks but told PCP office about the CP so sent here for evaluation.
She finised a regimen of Prednisone per PCP 3 days ago for pain in right hand and neck, these have improved.
Past History
<Ying Gibson CRIMINAL PSYCHOLOGIST - Last Filed: 12/30/24 02:51>
Past History
ED Past Medical History: None, Cancer, GERD, HTN, Hypercholesterolemia and Other (PE/DVT)
ED Past Surgical History: Cholecystectomy, Orthopedic and Urological
Social History
Tobacco: Non-smoker
Alcohol: None
Drug: None
Personal:
Living: with family
Review of Systems
<Ying Gibson, CRIMINAL PSYCHOLOGIST - Last Filed: 12/30/24 02:51>
Review of Systems
Allergies reviewed?: Yes
All Other Systems: ROS reviewed and negative except as documented in HPI and ROS
Constitutional: Denies fever or fatigue
Respiratory: Denies cough or trouble breathing
Cardiac: Reports chest pain (thoracic pain mid upper back and mid chest)
ABD/GI: Denies abdominal pain, nausea, vomiting or diarrhea
: Denies dysuria, frequency or difficulty voiding
Musculoskeletal: Reports no symptoms
Skin: Reports no symptoms
Neurological: Reports no symptoms
Phy Exam
<Ying Gibson CRIMINAL PSYCHOLOGIST - Last Filed: 12/30/24 02:51>
Physical Exam
Physical Exam:
GENERAL: No acute distress. A&Ox3.
CONSTITUTIONAL: Afebrile.
EYES: clear, conjunctivae normal
ENMT: moist mucus membranes
RESPIRATORY: Regular respirations, nonlabored, lungs clear.
CARDIOVASCULAR: Regular rate and rhythm, no murmurs, no rubs.
GI: Soft, nontender, normal BS
MUSCULOSKELETAL: Tender mid sternum, pressing here immediately reproduces pain. Mild pain to palpation mid to upper back ST, more tender right upper back just medial to mid scapula. Getting up from laying and going back to laying aggravates the
pain. Moves with ease. Well perfused.
SKIN: Warm, dry, pink
PSYCH: Normal mood and affect. Well kept, interactive and appropriate
NEUROLOGIC: Awake, alert and oriented. No focal neurological deficits
Course
<Ying Gibson, CRIMINAL PSYCHOLOGIST - Last Filed: 12/30/24 02:51>
Orders/Labs/Results
Orders:
Orders
12/29/24 14:39
Electrocardiogram (*1) Urgent
Reason for Study: Chest Pain
EKG- Treatment ONCE
12/29/24 14:45
Complete Blood Count/With Diff Urgent
Comprehensive Metabolic Panel Urgent
Lipase Urgent
Troponin I Urgent
12/29/24 18:53
Mag Hydrox/Al Hydrox/Simeth [Maalox] 30 ml Phenobarb/Hyoscy/Atropine/Scop [] 10 ml Viscous Lidocaine 2% [Xylocaine Viscous Cup] 10 ml PO NOW
12/29/24 19:05
Mag Hydrox/Al Hydrox/Simeth [Maalox] 30 ml .ROUTE .ST-MED ONE
Phenobarb/Hyoscy/Atropine/Scop [] 10 ml .ROUTE .STK-MED ONE
Viscous Lidocaine 2% [Xylocaine Viscous Cup] 15 ml .ROUTE .STK-MED ONE
12/29/24 19:09
CR Chest - 2 Views Urgent
Comment:
Reason For Exam: thoracic pain mid upper back and mid chest
12/29/24 20:03
Pantoprazole [Protonix IV] 80 mg IV NOW STA
12/29/24 21:00
HYDROmorphone [Dilaudid] 1 mg IM NOW STA
12/29/24 21:05
Ipratropium/Albuterol Sulfate [Duoneb] 3 ml INH R NOW STA
12/29/24 21:07
Dexamethasone Sod Phosphate [Decadron] 10 mg IV NOW STA
Abnormal Lab Results
12/29/24
14:45
WBC 20.0 H 10^3/uL
(4.8-10.8)
Abs Immat Gran (auto) 0.1 H 10^3/uL
(0-0.05)
Absolute Neuts (auto) 16.3 H 10^3/uL
(1.4-6.5)
Absolute Monos (auto) 1.7 H 10^3/uL
(0.1-0.6)
Neutrophils % 81.6 H %
(42.2-75.2)
Lymphocytes % 8.4 L %
(20.5-51.1)
Sodium 132 L mmol/L
(135-145)
Glucose 149 H mg/dl
(70-99)
Calcium 10.5 H mg/dl
(8.4-10.2)
Alkaline Phosphatase 128 H U/L
(38-126)
12/29/24 14:45
12/29/24 14:45
Vital Signs
Initial and Last Documented VS:
Initial Vital Signs
Temp Pulse Resp BP Pulse Ox
98.0 F 95 20 151/87 95
12/29/24 14:36 12/29/24 14:36 12/29/24 14:36 12/29/24 14:36 12/29/24 14:36
Last Documented Vital Signs
Temp Pulse Resp BP Pulse Ox
98.0 F 80 20 139/68 90
12/29/24 14:36 12/29/24 21:30 12/29/24 21:30 12/29/24 21:00 12/29/24 19:45
Band Manager consulted with Physician
Band Manager consulted with physician?: Yes
Name of Physician Consulted: Zahra
<Jignesh Sweeney, DO - Last Filed: 12/29/24 21:06>
Orders/Labs/Results
Orders:
Orders
12/29/24 14:39
Electrocardiogram (*1) Urgent
Reason for Study: Chest Pain
EKG- Treatment ONCE
12/29/24 14:45
Complete Blood Count/With Diff Urgent
Comprehensive Metabolic Panel Urgent
Lipase Urgent
Troponin I Urgent
12/29/24 18:53
Mag Hydrox/Al Hydrox/Simeth [Maalox] 30 ml Phenobarb/Hyoscy/Atropine/Scop [] 10 ml Viscous Lidocaine 2% [Xylocaine Viscous Cup] 10 ml PO NOW
12/29/24 19:05
Mag Hydrox/Al Hydrox/Simeth [Maalox] 30 ml .ROUTE .STK-MED ONE
Phenobarb/Hyoscy/Atropine/Scop [] 10 ml .ROUTE .STK-MED ONE
Viscous Lidocaine 2% [Xylocaine Viscous Cup] 15 ml .ROUTE .STK-MED ONE
12/29/24 19:09
CR Chest - 2 Views Urgent
Comment:
Reason For Exam: thoracic pain mid upper back and mid chest
12/29/24 20:03
Pantoprazole [Protonix IV] 80 mg IV NOW STA
12/29/24 21:00
HYDROmorphone [Dilaudid] 1 mg IM NOW STA
12/29/24 21:05
Ipratropium/Albuterol Sulfate [Duoneb] 3 ml INH R NOW STA
12/29/24 21:07
Dexamethasone Sod Phosphate [Decadron] 10 mg IV NOW STA
Abnormal Lab Results
12/29/24
14:45
WBC 20.0 H 10^3/uL
(4.8-10.8)
Abs Immat Gran (auto) 0.1 H 10^3/uL
(0-0.05)
Absolute Neuts (auto) 16.3 H 10^3/uL
(1.4-6.5)
Absolute Monos (auto) 1.7 H 10^3/uL
(0.1-0.6)
Neutrophils % 81.6 H %
(42.2-75.2)
Lymphocytes % 8.4 L %
(20.5-51.1)
Sodium 132 L mmol/L
(135-145)
Glucose 149 H mg/dl
(70-99)
Calcium 10.5 H mg/dl
(8.4-10.2)
Alkaline Phosphatase 128 H U/L
(38-126)
12/29/24 14:45
12/29/24 14:45
Vital Signs
Initial and Last Documented VS:
Initial Vital Signs
Temp Pulse Resp BP Pulse Ox
98.0 F 95 20 151/87 95
12/29/24 14:36 12/29/24 14:36 12/29/24 14:36 12/29/24 14:36 12/29/24 14:36
Last Documented Vital Signs
Temp Pulse Resp BP Pulse Ox
98.0 F 80 20 139/68 90
12/29/24 14:36 12/29/24 21:30 12/29/24 21:30 12/29/24 21:00 12/29/24 19:45
<Ying Gibson CRIMINAL PSYCHOLOGIST - Last Filed: 12/30/24 02:51>
MDM/Problems Addressed
Differential Diagnosis Includes:
pleuritis, GERD, costochondritis, thoracic strain, AAA
MDM/Problems Addressed:
74-year-old female with history of DVT on Eliquis, questionable polymyalgia rheumatica, chronic back pain followed by pain management, HTN, IBS, remote history of renal cancer with right nephrectomy, cholecystectomy 10/2024,
presents for pain mid chest and thoracic pain under both breasts that started upon getting OOB 9:30 this a.m. Pain is constant, worse with movement, deep breaths and pushing on the area. Has had a flare of her chronic mid to upper back pain for
several weeks but told PCP office about the CP so sent here for evaluation.
She finised a regimen of Prednisone per PCP 3 days ago for pain in right hand and neck, these have improved.
On Eliquis, doubt PE, no hx AAA
6:00 PM:
CBC: WBC 20.0 (just finished steroids 3 days ago)
CMP: No clinically significant abnormality
Troponin normal
9:00 p .m.
CXR NAD
Case discussed with Dr. Sweeney who examined pt. Agrees leukocytosis due to recent steroids and stress reaction
Recommends something for pain now, short course steroid, continue her muscle relaxant and f/u with her [employer] Developer
She does not want the steroid rx but willing to take Decadron one dose IV here.
9:45 p.m.
Pt ambulated out with with normal gait at discharge
Chronic conditions affecting care: HTN and Other (polymyalgia rheumatica)
<Ying Gibson CRIMINAL PSYCHOLOGIST - Last Filed: 12/30/24 02:51>
*Critical Care Note
Total Time (30-74mins, 75-104mins- exclusive of procedures): Not Applicable
ED Attending Note
<Ying Gibson, CRIMINAL PSYCHOLOGIST - Last Filed: 12/30/24 02:51>
-
Portions of this chart may have been created with voice recognition software.� Occasional wrong word or��sound alike� substitutions may have occurred due to the inherent limitations of voice recognition software.
<Jignesh Sweeney DO - Last Filed: 12/29/24 21:06>
ED Attending Note
Patient seen and examined by attending physician: Yes
I performed the substantive portion of visit, reviewed & personally made and approve the management plan that is documented in note by myself or NAOMI.: Yes
ED Attending Note:
Seen with CRIMINAL PSYCHOLOGIST examined independently 74-year-old female history of polymyalgia rheumatica, anticoagulated, status post gallbladder removal had a flare of her PMR started on steroids developed some pain in her right and left back and chest, worse with
movement better with rest, EKG noted troponin noted lipase noted pain appears to be reproducible by position and palpation will try to get her comfortable,
Discharge Plan
Departure
Patient Disposition: Home (Routine Discharge)
Date of Disposition: 12/29/24
Time of Disposition: 21:08
Patient with high blood pressure during this ER visit?: No
Condition: Fair
Discharge Problem:
Chronic thoracic back pain, Acute chest wall pain
Instructions: Costochondritis, Chest Pain (DC), Musculoskeletal Pain
Prescriptions:
No Action
simvastatin 10 MG tablet
10 mg PO HS
amitriptyline 10 mg Tablet
40 mg PO HS Qty: 0
Rx Instructions:
Given in ED
omeprazole magnesium [Prilosec OTC] 20 MG tablet,delayed release (DR/EC)
20 mg PO DAILY
Rx Instructions:
Pt states she normally takes daily around 8am, but was told to stop for now because it could interfere with an antibotic she was taking, she last took this med on 11/20
fosinopril 20 MG tablet
20 mg PO DAILY
Rx Instructions:
Pt was taking fosinopril 20mg, now scheduled to take Zestril 20mg tomorrow instead
hydrochlorothiazide 12.5 MG capsule
12.5 mg PO DAILY
diphenhydramine-acetaminophen [Tylenol PM Extra Strength] 1 EACH tablet
2 tab PO HS PRN (Reason: PAIN/SLEEP)
diltiazem HCl 120 mg capsule,extended release 24hr
120 mg PO DAILY
azelastine 137 mcg (0.1 %) aerosol,spray
1 spray INTRANASAL BID
magnesium citrate 125 mg Capsule
120 mg PO HS
Rx Instructions:
pt states she has not taken in months
Eliquis DVT-PE Treat 30D Start 5 mg (74 tabs) tablets,dose pack
See Rx Instructions .ROUTE .COMPLEX Qty: 74 0RF
Rx Instructions:
orally per package directions
cefuroxime axetil 500 mg Tablet
500 mg PO BID Qty: 3 0RF
Rx Instructions:
finish 10 day course (last dose 11/26 PM)
ondansetron 4 mg tablet,disintegrating
4 mg PO Q6H PRN (Reason: nausea and vomiting) Qty: 20 0RF
oxycodone-acetaminophen [Percocet] 5-325 mg tablet
1 tab PO Q4HPRN PRN (Reason: pain) Qty: 15 0RF
Referrals:
Ellis Hi MD [Family Provider, Family Practice]
Activity Restrictions/Additional Instructions:
As we discussed, see your primary doctor next week if you are no better by then
Also update your broadcast operations engineer about today's visit.
Interventions
Interventions:
*Risk Screen - Suicide Last Done: 12/29/24 17:41
*General Assessment Last Done: 12/29/24 14:36
*Neglect/Abuse Screening Last Done: 12/29/24 17:41
*ED- Fall Risk Assessment Last Done: 12/29/24 21:36
*ED COVID-19 Vaccine History Last Done: 12/29/24 17:41
*Nursing Disposition Last Done: 12/29/24 21:36
ED- Pulmonary Assessment Last Done: 12/29/24 17:41
ED- Cardiac Assessment Last Done: 12/29/24 17:41
Discharge Date and Time
Discharge Date/Time: 12/29/24 21:36
Print Language: SPANISH
[2024-12-29 18:01] VITALS: BP 103/72
[2024-12-29] MEDS: MAALOX 40 PO (19:06)
[2024-12-29] MEDS: PROTONIX IV 80 MG IV (20:12)
[2024-12-29 20:17] VITALS: BP 131/63
[2024-12-29 21:00] VITALS: BP 139/68
[2024-12-29] MEDS: DILAUDID 1 MG IM (21:28)
[2024-12-29] MEDS: DECADRON 10 MG IV (21:28)
== END 2024-12-29 21:36 | disposition home or self-care (01) ==
LOC: EMR 14:34
PROVIDERS: Emergency Medicine; EMERGENCY PHYSICIAN Emergency Medicine; FAMILY PHYSICIAN Family Medicine; OTHER PHYSICIAN Internal Medicine Cardiovascular Disease
DX: M54.6 Pain in thoracic spine (principal); G89.29 Other chronic pain; R07.89 Other chest pain; I10 Essential (primary) hypertension; E78.00 Pure hypercholesterolemia, unspecified; M35.3 Polymyalgia rheumatica; Z90.49 Acquired absence of other specified parts of digestive tract; Z86.718 Personal history of other venous thrombosis and embolism; Z79.01 Long term (current) use of anticoagulants; Z85.528 Personal history of other malignant neoplasm of kidney; Z90.5 Acquired absence of kidney
CPT/HCPCS: 96374; 96375; 96372; 99284; 71046; 80053; 83690; 84484; 85025; 93005

== ENCOUNTER 2025-01-02 12:07 | Emergency (ER) | payer MEDICARE, OTHER, SELFPAY ==
[2025-01-02 12:08] VITALS: BP 100/73
[2025-01-02 15:15] VITALS: BMI 27.9
--- NOTE | 2025-01-02 15:18 | ED.GENMED ---
History of Present Illness
General
Chief Complaint: Back Pain
Source: patient
Exam Limitations: none
Time Seen by Provider: 01/02/25 13:58
Nursing documentation reviewed up to this point in time: agreed with
History of Present Illness
History of Present Illness:
Patient presents to ED secondary to persistent substernal and left-sided chest pain and back pain over the past 1 week. Patient was seen in ED 3 days ago, during which time she received a normal chest x-ray. Patient has also spoken with her pain
management doctor and has been taking pain medication along with muscle relaxant medication, without improvement in symptoms. Denies fever or chills. Denies nausea, vomiting, or diarrhea. Denies coughing. Denies sore throat. Denies headache.
Denies dizziness. Denies loss of appetite. Denies recent travel. Denies recent surgery. Patient is currently on lifelong treatment of Eliquis, secondary to recurrent PE. In addition, patient's recent medical history significant for
cholecystectomy in October.
Past History
Past History
ED Past Medical History: None, Cancer, GERD, HTN, Hypercholesterolemia and Other (PE/DVT)
ED Past Surgical History: Cholecystectomy, Orthopedic and Urological
Social History
Tobacco: Non-smoker
Alcohol: None
Drug: None
Personal:
Living: with family
Review of Systems
Review of Systems
Allergies reviewed?: Yes
All Other Systems: ROS reviewed and negative except as documented in HPI and ROS
Constitutional: Reports no symptoms; Denies fever
Respiratory: Reports no symptoms; Denies cough or trouble breathing
Cardiac: Reports chest pain
ABD/GI: Reports no symptoms; Denies vomiting or diarrhea
: Reports no symptoms; Denies frequency or incontinence
Musculoskeletal: Reports back pain
Skin: Reports no symptoms
Neurological: Reports no symptoms; Denies dizzy, headache or weakness
Phy Exam
Physical Exam
Physical Exam:
Physical Exam
General: mild painful distress, not acutely ill. afebrile
Head: nc/at. eomi
Neck: supple. no meningeal signs.
Heart: s1/s2 regular rate and rhythm
Lungs: no acute respiratory distress. clear bilaterally. mild left anterior chest wall tenderness along midaxillary line without ecchymosis/erythema/swelling
Abdomen: normal bowel sounds. mild epigastric tenderness to palpation
Neuro: alert and oriented x 3. no focal neurological deficits
Skin: no rash
Psychiatric: well kept. interactive and cooperative
Extremities: no edema. no calf tenderness.
Course
Orders/Labs/Results
Orders:
Orders
01/02/25 12:14
ECG [Electrocardiogram (*1)] Urgent
Reason for Study: Abdominal Pain
EKG- Treatment ONCE
01/02/25 15:18
HYDROmorphone [Dilaudid] 1 mg IV NOW STA
01/02/25 15:22
HYDROmorphone [Dilaudid] 0.5 mg IV NOW STA
01/02/25 15:23
CT Abd/pel W Iv And Oral Contr Urgent
Comment:
Reason For Exam: epigastric pain s/p cholecystectomy
Iohexol [Omnipaque] See Protocol PO NOW STA
01/02/25 15:29
Complete Blood Count/With Diff Urgent
Comprehensive Metabolic Panel Urgent
Lipase Urgent
01/02/25 15:53
Urinalysis Reflex To Culture Urgent
Date Specimen was Collected: 01/02/25
Time Specimen was Collected: 15:48
01/02/25 18:12
Ondansetron Injectable [Zofran] 4 mg .ROUTE .STK-MED ONE
01/02/25 18:13
Ondansetron Injectable [Zofran] 4 mg IV NOW STA
01/02/25 19:27
HYDROmorphone [Dilaudid] 2 mg PO NOW STA
01/02/25 19:28
Azithromycin [Zithromax] 500 mg PO NOW STA
Prednisone [Deltasone] 50 mg PO NOW STA
01/02/25 19:32
Potassium Chloride [KCl] 20 meq PO NOW STA
Abnormal Lab Results
01/02/25
15:29
WBC 13.9 H 10^3/uL
(4.8-10.8)
Abs Immat Gran (auto) 0.1 H 10^3/uL
(0-0.05)
Absolute Neuts (auto) 9.7 H 10^3/uL
(1.4-6.5)
Absolute Monos (auto) 1.3 H 10^3/uL
(0.1-0.6)
Lymphocytes % 19.7 L %
(20.5-51.1)
Potassium 3.3 L mmol/L
(3.5-5.1)
Glucose 145 H mg/dl
(70-99)
Total Protein 6.0 L g/dl
(6.3-8.2)
01/02/25 15:29
01/02/25 15:29
Vital Signs
Initial and Last Documented VS:
Initial Vital Signs
Temp Pulse Resp BP Pulse Ox
97.8 F 82 20 100/73 96
01/02/25 12:08 01/02/25 12:08 01/02/25 12:08 01/02/25 12:08 01/02/25 12:08
Last Documented Vital Signs
Temp Pulse Resp BP Pulse Ox
97.8 F 72 16 139/74 96
01/02/25 12:08 01/02/25 20:17 01/02/25 20:17 01/02/25 20:17 01/02/25 20:17
MDM/Problems Addressed
MDM/Problems Addressed:
In the patient's moderate reproducible epigastric pain with recent cholecystectomy, decision made to perform CT abdomen pelvis to evaluate for potential surgical complication, i.e. abscess.
CT abdomen pelvis report reviewed and discussed with patient.
PE unlikely as patient is on chronic Eliquis tx and has been compliant with her medication
Patient reports improvement in symptoms after treatment in ED. Patient otherwise remains afebrile, hemodynamically stable, and nontoxic-appearing.
Reviewed patient's chest x-ray from Wednesday, which revealed potential left-sided pneumonia. As patient's presenting symptoms, anatomically, correlates with what was noted on x-ray, decision made to administer short course of antibiotics, i.e. Z-Loc,
along with shortness of prednisone and pain medication. Patient will be discharged home in stable condition to the care of her spouse, with recommendation for PCP follow-up later this week, or consider return to ED with worsening symptoms. Patient
and spouse expressed understanding at time of discharge.
*Critical Care Note
Total Time (30-74mins, 75-104mins- exclusive of procedures): Not Applicable
ED Attending Note
-
Portions of this chart may have been created with voice recognition software.� Occasional wrong word or��sound alike� substitutions may have occurred due to the inherent limitations of voice recognition software.
Discharge Plan
Departure
Patient Disposition: Home (Routine Discharge)
Date of Disposition: 01/02/25
Time of Disposition: 19:34
Patient with high blood pressure during this ER visit?: Yes
Condition: Fair
Discharge Problem:
Back pain, Abdominal pain, Pneumonia
Instructions: Low Back Pain (DC), Pneumonia in adults - ED discharge instructions
Prescriptions:
New
azithromycin [Zithromax] 250 mg tablet
250 mg PO DAILY Qty: 4 0RF
prednisone 50 mg Tablet
50 mg PO DAILY Qty: 2 0RF
hydromorphone [Dilaudid] 2 mg tablet
2 mg PO Q6H PRN (Reason: Pain) Qty: 8 0RF
No Action
simvastatin 10 MG tablet
10 mg PO HS
amitriptyline 10 mg Tablet
40 mg PO HS Qty: 0
Rx Instructions:
Given in ED
omeprazole magnesium [Prilosec OTC] 20 MG tablet,delayed release (DR/EC)
20 mg PO DAILY
Rx Instructions:
Pt states she normally takes daily around 8am, but was told to stop for now because it could interfere with an antibotic she was taking, she last took this med on 11/20
fosinopril 20 MG tablet
20 mg PO DAILY
Rx Instructions:
Pt was taking fosinopril 20mg, now scheduled to take Zestril 20mg tomorrow instead
hydrochlorothiazide 12.5 MG capsule
12.5 mg PO DAILY
diphenhydramine-acetaminophen [Tylenol PM Extra Strength] 1 EACH tablet
2 tab PO HS PRN (Reason: PAIN/SLEEP)
diltiazem HCl 120 mg capsule,extended release 24hr
120 mg PO DAILY
azelastine 137 mcg (0.1 %) aerosol,spray
1 spray INTRANASAL BID
magnesium citrate 125 mg Capsule
120 mg PO HS
Rx Instructions:
pt states she has not taken in months
Eliquis DVT-PE Treat 30D Start 5 mg (74 tabs) tablets,dose pack
See Rx Instructions .ROUTE .COMPLEX Qty: 74 0RF
Rx Instructions:
orally per package directions
cefuroxime axetil 500 mg Tablet
500 mg PO BID Qty: 3 0RF
Rx Instructions:
finish 10 day course (last dose 11/26 PM)
ondansetron 4 mg tablet,disintegrating
4 mg PO Q6H PRN (Reason: nausea and vomiting) Qty: 20 0RF
oxycodone-acetaminophen [Percocet] 5-325 mg tablet
1 tab PO Q4HPRN PRN (Reason: pain) Qty: 15 0RF
Referrals:
Ellis Hi MD [Family Provider, Family Practice]
Activity Restrictions/Additional Instructions:
As discussed, please follow-up with your primary care physician for reevaluation this week. Please consider returning to ED with worsening symptoms. Your prescriptions have been sent electronically to [facility] pharmacy in [place]. You must not
take prescribed Dilaudid tablets at the same time as Percocet at home.
Interventions
Interventions:
*Risk Screen - Suicide Last Done: 01/02/25 12:08
*General Assessment Last Done: 01/02/25 12:08
*Neglect/Abuse Screening Last Done: 01/02/25 15:55
*ED- Fall Risk Assessment Last Done: 01/02/25 15:55
*ED COVID-19 Vaccine History Last Done: 01/02/25 15:55
*Nursing Disposition Last Done: 01/02/25 20:19
ED-Musculoskeletal Assessment Last Done: 01/02/25 20:17
Discharge Date and Time
Discharge Date/Time: 01/02/25 20:20
Print Language: MALAY
[2025-01-02 15:38] LABS: % Basophils 0.3 % (0-2); % Eosinophils 0.6 % (0-6); % Immature Granulocytes 0.4 % (0-0.5); % Lymphocytes 19.7 % (20.5-51.1); % Monocytes 9.2 % (1.7-9.3); % Neutrophils 69.8 % (42.2-75.2); Absolute Eosinophils 0.1 10^3/uL (0-0.7); Absolute Immature Granulocytes 0.1 10^3/uL (0-0.05); Absolute Lymphocytes 2.7 10^3/uL (1.2-3.4); Absolute Monocytes 1.3 10^3/uL (0.1-0.6); Absolute Neutrophils 9.7 10^3/uL (1.4-6.5); Hematocrit 39.7 % (37.0-47.0); Hemoglobin 13.3 g/dL (12.0-16.0); Mean Corp Hgb Conc. 33.5 g/dL (33.0-37.0); Mean Corpuscular Hgb 29.6 pg (27.0-31.0); Mean Corpuscular Volume 88.2 fL (81.0-99.0); Mean Platelet Volume 9.2 fL (7.4-10.4); Nucleated Red Blood Cells % 0 %; Platelet Count 334 10^3/uL (130-400); Red Cell Dist. Width 14.1 % (11.5-14.5); White Blood Cell Count 13.9 10^3/uL (4.8-10.8)
[2025-01-02] MEDS: OMNIPAQUE 50 ML PO (15:49)
[2025-01-02] MEDS: DILAUDID 0.5 MG IV (15:51)
[2025-01-02 16:00] VITALS: BP 136/89
[2025-01-02 16:00] LABS: ALT (SGPT) 18 U/L (0-35); AST (SGOT) 16 U/L (14-36); Albumin 3.7 g/dl (3.5-5.0); Alkaline Phosphatase 123 U/L (38-126); Blood Urea Nitrogen 16 mg/dl (7-17); Carbon Dioxide 24 mmol/L (22-30); Chloride 105 mmol/L (98-107); Estimated Creatinine Clearance 63 ml/min; Glucose 145 mg/dl (70-99); Lipase 143 U/L (23-300); Potassium 3.3 mmol/L (3.5-5.1); Sodium 136 mmol/L (135-145); Total Bilirubin 0.5 mg/dl (0.2-1.3); eGFR > 60.00
[2025-01-02 16:01] LABS: Urine Albumin Negative (Neg - Trace); Urine Bilirubin Negative (Negative); Urine Character Clear (Clear); Urine Color Yellow; Urine Glucose Negative (Negative); Urine Ketone Negative (Negative); Urine Leukocyte Negative (Negative); Urine Nitrite Negative (Negative); Urine Occult Blood Negative (Negative); Urine Urobilinogen Negative (Neg - 1+); Urine pH 6.5 (5.0-9.0)
[2025-01-02 17:00] VITALS: BP 139/89
[2025-01-02 18:00] VITALS: BP 129/84
[2025-01-02] MEDS: ZOFRAN 4 MG IV (18:13)
[2025-01-02] MEDS: DILAUDID 2 MG PO (20:09)
[2025-01-02] MEDS: DELTASONE 50 MG PO (20:10)
[2025-01-02] MEDS: ZITHROMAX 500 MG PO (20:10)
[2025-01-02] MEDS: KCL 20 MEQ PO (20:10)
[2025-01-02 20:17] VITALS: BP 139/74
== END 2025-01-02 20:20 | disposition home or self-care (01) ==
LOC: EMR 12:07
PROVIDERS: EMERGENCY PHYSICIAN Emergency Medicine; FAMILY PHYSICIAN Family Medicine
DX: J18.9 Pneumonia, unspecified organism (principal); R10.9 Unspecified abdominal pain; M54.9 Dorsalgia, unspecified; E78.00 Pure hypercholesterolemia, unspecified; I10 Essential (primary) hypertension; M19.90 Unspecified osteoarthritis, unspecified site; K21.9 Gastro-esophageal reflux disease without esophagitis; M35.3 Polymyalgia rheumatica; K58.9 Irritable bowel syndrome, unspecified; Z79.01 Long term (current) use of anticoagulants; Z86.711 Personal history of pulmonary embolism; Z85.528 Personal history of other malignant neoplasm of kidney; Z85.828 Personal history of other malignant neoplasm of skin; Z87.891 Personal history of nicotine dependence; Z90.49 Acquired absence of other specified parts of digestive tract; Z90.5 Acquired absence of kidney; Z91.048 Other nonmedicinal substance allergy status
CPT/HCPCS: 99284; 96375; 96374; 74177; 80053; 81003; 83690; 85025; 93005; Q9967

== ENCOUNTER → 2025-01-05 08:03 | Outpatient (REF) | payer MEDICARE, OTHER, SELFPAY | LOC: RAD 08:03 | PROVIDERS: ATTENDING PHYSICIAN Family Medicine | DX: M54.9 Dorsalgia, unspecified (principal); M54.50 Low back pain, unspecified | CPT/HCPCS: 72072; 72110 ==

== ENCOUNTER → 2025-01-12 13:11 | Outpatient (REF) | payer MEDICARE, OTHER, SELFPAY | LOC: RAD 13:11 | PROVIDERS: ATTENDING PHYSICIAN Internal Medicine Rheumatology; FAMILY PHYSICIAN Family Medicine | DX: M81.0 Age-related osteoporosis without current pathological fracture (principal) | CPT/HCPCS: 77080 ==

== ENCOUNTER 2025-02-28 22:20 | Inpatient (IN) | payer MEDICARE, OTHER, SELFPAY ==
[2025-02-28] VITALS (7 sets, daily range): BP systolic 124–148; BP diastolic 68–89; BMI 28.4
[2025-02-28 16:08] LABS: ALT (SGPT) 26 U/L (0-35); AST (SGOT) 40 U/L (14-36); Albumin 3.7 g/dl (3.5-5.0); Alkaline Phosphatase 148 U/L (38-126); Blood Urea Nitrogen 13 mg/dl (7-17); Calcium 10.5 mg/dl (8.4-10.2); Carbon Dioxide 19 mmol/L (22-30); Chloride 98 mmol/L (98-107); Glucose 281 mg/dl (70-99); Potassium 4.7 mmol/L (3.5-5.1); Sodium 126 mmol/L (135-145); Total Protein 6.2 g/dl (6.3-8.2); Uric Acid 6.2 mg/dl (2.5-6.2); eGFR > 60.00
[2025-02-28 16:11] LABS: Hematocrit 35.2 % (37.0-47.0); Hemoglobin 11.9 g/dL (12.0-16.0); Mean Corp Hgb Conc. 33.8 g/dL (33.0-37.0); Mean Corpuscular Volume 83.2 fL (81.0-99.0); Nucleated Red Blood Cells % 0 %; Red Cell Dist. Width 14.7 % (11.5-14.5)
[2025-02-28 16:15] LABS: Troponin I < 0.012 ng/ml
[2025-02-28 16:48] LABS: Platelet Count 608 10^3/uL (130-400)
--- NOTE | 2025-02-28 17:26 | ED.GENMED ---
History of Present Illness
General
Chief Complaint: Weakness
Source: patient
Exam Limitations: none
Time Seen by Provider: 02/28/25 17:24
Nursing documentation reviewed up to this point in time: agreed with
History of Present Illness
History of Present Illness:
74 yr old female presents to the ER for evaluation. Patient has a history of polymyalgia rheumatica, gout, DVT PE on Eliquis hypertension presents today for evaluation. Patient reports starting last week she started to have some pains in her
shoulders and neck and that since Wednesday she has felt weakness and pain in her thighs. She was down the [facility] and was admitted to [facility] (formerly [facility] That time she reports she also had some left hand pain and was treated for possible
arthritis and placed in a splint. She came over the short is here because she is still very weak in her legs and feels weak all over. She had a urinary infection several weeks ago but denies any UTI symptoms now. She denies any fever or chills.
She does report she is out of decreased appetite for the past 2 weeks has not been eating well.
Past History
Past History
ED Past Medical History: None, Cancer, GERD, HTN, Hypercholesterolemia and Other (PE/DVT)
ED Past Surgical History: Cholecystectomy, Orthopedic and Urological
Social History
Tobacco: Non-smoker
Alcohol: None
Drug: None
Personal:
Living: with family
Phy Exam
General Physical Exam
General Presentation: no apparent distress
General age: appears stated age
General Skin: warm and dry
General Habitus: normal
General Mental: alert
General Hydration: dry mucous membranes
Neurological Exam
Neurological Exam: alert and oriented x3
Musculoskeletal Exam
Musculoskeletal Exam: full ROM and other (Normal inspection to his legs bilaterally no obvious swelling, strong pulses ; left wrist in splint nml sensation )
Skin Exam
Skin Exam: normal color and warm/dry
Psychiatric Exam
Psychiatric Exam: normal mood/affect
Course
Orders/Labs/Results
Orders:
Orders
02/28/25 15:33
Electrocardiogram (*1) Urgent
Reason for Study: Fatigue / Weakness
EKG- Treatment ONCE
02/28/25 15:43
Comprehensive Metabolic Panel Urgent
Uric Acid Urgent
02/28/25 15:44
Complete Blood Count/With Diff Urgent
Troponin I Urgent
02/28/25 17:47
0.9% Sodium Chloride 1000 ml [Nss] 1,000 ml IV BOLUS
02/28/25 18:52
Urinalysis Reflex To Culture Urgent
Date Specimen was Collected: 02/28/25
Time Specimen was Collected: 15:33
Urine Microscopic Reflex Cult Urgent
Urine Culture Urgent
ERNESTO Source: U
Specimen Description:
Date Specimen was Collected: 02/28/25
Time Specimen was Collected: 15:33
Abnormal Lab Results
02/28/25 02/28/25 02/28/25
15:43 15:44 18:52
WBC 12.3 H 10^3/uL
(4.8-10.8)
Hgb 11.9 L g/dL
(12.0-16.0)
Hct 35.2 L %
(37.0-47.0)
RDW 14.7 H %
(11.5-14.5)
Plt Count 608 H 10^3/uL
(130-400)
Absolute Neuts (auto) 11.5 H 10^3/uL
(1.4-6.5)
Absolute Lymphs (auto) 0.4 L 10^3/uL
(1.2-3.4)
Neutrophils % 93.1 H %
(42.2-75.2)
Lymphocytes % 3.6 L %
(20.5-51.1)
Sodium 126 L mmol/L
(135-145)
Carbon Dioxide 19 L mmol/L
(22-30)
Glucose 281 H mg/dl
(70-99)
Calcium 10.5 H mg/dl
(8.4-10.2)
AST 40 H U/L
(14-36)
Alkaline Phosphatase 148 H U/L
(38-126)
Total Protein 6.2 L g/dl
(6.3-8.2)
Urine Ketones 2+ A
(Negative)
Ur Occult Blood Reflex 2+ A
(Negative)
Leukocyte Esterase Rfl 1+ A
(Negative)
Urine Bacteria (Reflex) Few A
(Negative)
Urine Glucose 2+ A
(Negative)
Urine Albumin (Reflex) 2+ A
(Neg - Trace)
02/28/25 15:44
02/28/25 15:43
Vital Signs
Initial and Last Documented VS:
Initial Vital Signs
Temp Pulse Resp BP Pulse Ox
98.2 F 90 16 136/75 98
02/28/25 15:25 02/28/25 15:25 02/28/25 15:25 02/28/25 15:25 02/28/25 15:25
Last Documented Vital Signs
Temp Pulse Resp BP Pulse Ox
98.2 F 96 19 144/78 93
02/28/25 15:25 02/28/25 20:06 02/28/25 20:06 02/28/25 20:06 02/28/25 20:14
MDM/Problems Addressed
Differential Diagnosis Includes:
Not limited to weakness dehydration infection PMR exacerbation
MDM/Problems Addressed:
Patient is a 74 old female who complains of weakness off and on. Has a history of PMR but has noticed weakness in her thighs and legs and a general overall sense of weakness with a decreased appetite for the past several weeks. Patient was found
to be hyponatremic with a sodium of 126. Patient denies any fever chills patient's blood sugar was elevated to 81. She is not a known diabetic and was last on steroids about a month ago. Patient was given fluids here in the ER and repeat blood
sugar 172. With findings of hyponatremia and weakness recommend admission.
Chronic conditions affecting care:
History of PMR hypertension
*Pulse Oximetry
SaO2: 98
Oxygen Mode of Delivery: Room air
Patient hypoxic: no
*EKG
Interpreted by ED Provider?: Yes
Heart Rate: 102
Rate: tachycardiac
Rhythm: sinus
*Critical Care Note
Total Time (30-74mins, 75-104mins- exclusive of procedures): Not Applicable
ED Attending Note
-
Portions of this chart may have been created with voice recognition software.� Occasional wrong word or��sound alike� substitutions may have occurred due to the inherent limitations of voice recognition software.
Discharge Plan
Departure
Patient Disposition: Admit
Date of Disposition: 02/28/25
Time of Disposition: 20:30
Admit to: Med/Surg
Admit to doctor: hospitalist
Presentation/result/management discussed w/ accepting MD/DO: Hospitalist
Patient with high blood pressure during this ER visit?: Yes
Condition: Fair
Covid-19: Not Applicable
Discharge Problem:
Acute hyponatremia, Weakness
Prescriptions:
No Action
simvastatin 10 MG tablet
10 mg PO HS
amitriptyline 10 mg Tablet
40 mg PO HS Qty: 0
Rx Instructions:
Given in ED
omeprazole magnesium [Prilosec OTC] 20 MG tablet,delayed release (DR/EC)
20 mg PO DAILY
Rx Instructions:
Pt states she normally takes daily around 8am, but was told to stop for now because it could interfere with an antibotic she was taking, she last took this med on 11/20
fosinopril 20 MG tablet
20 mg PO DAILY
Rx Instructions:
Pt was taking fosinopril 20mg, now scheduled to take Zestril 20mg tomorrow instead
hydrochlorothiazide 12.5 MG capsule
12.5 mg PO DAILY
diphenhydramine-acetaminophen [Tylenol PM Extra Strength] 1 EACH tablet
2 tab PO HS PRN (Reason: PAIN/SLEEP)
diltiazem HCl 120 mg capsule,extended release 24hr
120 mg PO DAILY
azelastine 137 mcg (0.1 %) aerosol,spray
1 spray INTRANASAL BID
magnesium citrate 125 mg Capsule
120 mg PO HS
Rx Instructions:
pt states she has not taken in months
Eliquis DVT-PE Treat 30D Start 5 mg (74 tabs) tablets,dose pack
See Rx Instructions .ROUTE .COMPLEX Qty: 74 0RF
Rx Instructions:
orally per package directions
cefuroxime axetil 500 mg Tablet
500 mg PO BID Qty: 3 0RF
Rx Instructions:
finish 10 day course (last dose 11/26 PM)
ondansetron 4 mg tablet,disintegrating
4 mg PO Q6H PRN (Reason: nausea and vomiting) Qty: 20 0RF
oxycodone-acetaminophen [Percocet] 5-325 mg tablet
1 tab PO Q4HPRN PRN (Reason: pain) Qty: 15 0RF
azithromycin [Zithromax] 250 mg tablet
250 mg PO DAILY Qty: 4 0RF
prednisone 50 mg Tablet
50 mg PO DAILY Qty: 2 0RF
hydromorphone [Dilaudid] 2 mg tablet
2 mg PO Q6H PRN (Reason: Pain) Qty: 8 0RF
Referrals:
Ellis Hi MD [Family Provider, Family Practice]
Interventions
Interventions:
*Risk Screen - Suicide Last Done: 02/28/25 15:25
*General Assessment Last Done: 02/28/25 18:03
*Neglect/Abuse Screening Last Done: 02/28/25 15:25
*ED- Fall Risk Assessment Last Done: 02/28/25 15:25
*ED COVID-19 Vaccine History Last Done: 02/28/25 18:03
ED- Cardiac Assessment Last Done: 02/28/25 18:29
ED- Neurological Assessment Last Done: 02/28/25 18:29
ED- Pulmonary Assessment Last Done: 02/28/25 18:29
Discharge Date and Time
Print Language: PASHTO
[2025-02-28] MEDS: NSS 1000 IV (17:55)
[2025-02-28 18:59] LABS: Urine Character Clear (Clear)
[2025-02-28 19:10] LABS: Urine Red Blood Cell 0-2 /HPF (0-2); Urine Squamous Cell >30 /LPF (Few)
[2025-02-28 20:27] LABS: Glucose - Point of Care 172 mg/dl (70-99)
--- NOTE | 2025-02-28 21:15 | HPS.HSE ---
Addendum entered and electronically signed by Peter Taveras DO 02/28/25 23:06:
Patient seen and examined independently. Agree with findings and plan as set forth by BLANCA Wu.
Patient is a 74y F with PMH significant for PMR who presents to ED complaining of L hand / wrist pain and swelling, bilateral thigh pain and severe weakness. Patient states that symptoms have been progressive over the past week or so. Patient
was originally treated for PMR from October to May of 2024 with prednisone. She elected to stop the prednisone in May due to a vacation / trip. She felt fairly well for a time. She had severe weakness and diffuse pain about one month ago.
She was on a prednisone taper from January 11 through February 08. As usual, she felt immediately improved when she started those steroids. She did note that her symptoms started to return, even a few days into the 10mg / day dosing.
Patient was seen at [facility] this past weekend for pain, swelling in the R wrist. She has a splint in place which she states has been helpful.
Starting Wednesday, she has had bilateral thigh pain and weakness - currently unable to stand from seated position.
Ass:
Polymyalgia Rheumatica
Hyponatremia
Benign Hypertension
Hyperglycemia / Likely DM-II
History of DVT / PE
Plan:
Admit for further evaluation and treatment.
Resume prednisone at 20mg / day for now.
Follow-up with Rheumatology as an outpatient.
Will likely require prolonged course / slower taper.
Stop HCTZ. Fluid restriction.
Follow for improvement in Na levels.
Continue other usual medications including Eliquis for DVT / PE prophylaxis.
Original Note:
Family Physician
-
Family Physician: Ellis Hi
Chief Complaint
-
b/l thigh pain and weakness
History of Present Illness
74 yr old female history of polymyalgia rheumatica, gout, DVT PE on Eliquis hypertension presents today for bilateral thigh pain and weakness. last week she noted pain in her neck and shoulder which is actually better now. since Wednesday she noted
bilateral thigh pain and weakness. she was not able to get from the sitting position, she is having trouble turning side to side in the bed. she was having trouble walking due to pain and weakness. she is using cane to walk to the bathroom.she felt
the same symptoms last year, and she was prescribed prednisone which helped her. [facility] [place] and was admitted to [facility] due to left wrist and hand pain. she was noted to have swelling in her fingers. she was evaluated by
hand specialist, who explained to her that it is arthritis and placed a soft splint on her to relieve the pressure, swelling in her hand. She denies any fever or chills.denied TRAVIS. stated dizzy all last week. she was off balance. denied blurry
vision, numbness and tingling. denied fever, chills, cough, congestion. denied chest pain, sob. denied abdominal pain,n,v,d. denied dysuria or hematuria. patient stated poor appetite
admitting for further managment.
Medical History
Past Medical History
Past Medical History: Reports Other
Additional Past Medical History:
GERD
Hypertension
Hyperlipidemia
Hypercalcemia
Renal cell cancer
PE
PMR
Melanoma
DVT
Diverticulosis
Hiatal hernia
Fibrocystic disease of the breast
Past Surgical History: Reports Other
Additional Past Surgical History:
Toe dislocation repair
Polypectomy
left wrist open reduction internal fixation
Meniscus tear repair
Ovary cyst resection
Right knee replacement
Left total knee replacement next right kidney removal
Right carpal tunnel release
Bilateral cataract surgery
Cholecystectomy
Social History
Tobacco: Former Smoker
Alcohol: None
Drug: None
Personal:
Living: With Family
Family History
Family History: Not pertinent
Allergies / Home Medications
Allergies reflects when Allergies were last updated in [facility].
Home Medications with original date entered in [facility]
Allergy/Medication List:
Allergies
Allergy/AdvReac Type Severity Reaction Status Date / Time
grass, dust, mold Allergy nasal Uncoded 02/28/25 15:24
congestion
Home Medications
amitriptyline 10 mg tablet 40 mg PO HS Mental Health/Anxiety ##0 03/22/10
omeprazole magnesium 20 mg tablet,delayed release (Prilosec OTC) 20 mg PO DAILY GERD 03/03/13
fosinopril 20 mg tablet 20 mg PO DAILY Blood Pressure 03/25/19
hydrochlorothiazide 12.5 mg capsule 12.5 mg PO DAILY Fluid Retention/Swelling 03/25/19
diltiazem HCl 120 mg capsule,extended release 24 hr 120 mg PO DAILY Heart Disease/Condition 08/31/23
oxycodone-acetaminophen 5 mg-325 mg tablet (Percocet) 1 tab PO Q4HPRN PRN pain #15 tabs 11/25/24
apixaban 5 mg tablet (Eliquis) 5 mg PO BID 02/28/25
Review of Systems
-
Constitutional: Reports No Symptoms
EENT: Reports No Symptoms
Respiratory: Reports No Symptoms
Cardiac: Reports No Symptoms
Abdomen/GI: Reports No Symptoms
: Reports No Symptoms
Musculoskeletal: Reports No Symptoms and Other (b/l thigh pain, hand pain)
Skin: Reports No Symptoms
Neurological: Reports Dizzy and Weakness
Endocrine: Reports No Symptoms
Hematologic/Lymphatic: Reports No Symptoms
Psych: Reports No Symptoms
Physical Exam
Vital Signs
Vital Signs
Temp Pulse Resp BP Pulse Ox
98.2 F 96 19 144/78 93
02/28/25 15:25 02/28/25 20:06 02/28/25 20:06 02/28/25 20:06 02/28/25 20:14
Physical Exam
General: Well Developed, Well Nourished and No Apparent Distress
HEENT: NormoCephalic, Moist mucous membranes and Atraumatic
Respiratory: Clear
Cardiac: S1/S2 and Regular Rhythm; No Murmur or Rub
GI: Soft, Non Tender, Non Distended and Normal Bowel Sounds; No Organomegaly
Rectal: Deferred by Provider
Musculoskeletal: No Clubbing, No Cyanosis and No Edema
Skin: No Rash
Neuro: AO x 3 and Nonfocal/grossly intact
Psych: Calm
Laboratory Results
-
02/28/25 15:44
02/28/25 15:43
Laboratory Results
Total Bilirubin 0.6 mg/dl (0.2-1.3) 02/28/25 15:43
AST 40 U/L (14-36) H 02/28/25 15:43
ALT 26 U/L (0-35) 02/28/25 15:43
Alkaline Phosphatase 148 U/L (38-126) H 02/28/25 15:43
Troponin I < 0.012 ng/ml 02/28/25 15:44
Data Reviewed
-
Lab Data: Labs Reviewed by me
Impression/Plan
-
# Generalized weakness/ Bilateral thigh pain/hand pain likely PMR flare
-steroids continued
-Tylenol prn for pain
-oxy continued for pain
# Hyponatremia/metabolic acidosis likely dehydration
-corrected sodium is 130
- Serum osmolality 275 urine sodium 10
-received normal saline in ER
-BMP In am
-hold hctz
#hyperglycemia suspect DM 2
-sliding scale
-CHO diet
-obtain a1c.
#Leukocytosis/thrombocytosis likely from PMR
- WBCs 12.3, platelets 608
-ctm
#anxiety
-amitriptyline continued
#Essential HTN
- continue fosinopril
#Hx of PE/DVT on Eliquis
#GERD
-PPI continued
DVT ppx: eliquis
Code: Full
[2025-02-28] MEDS: DELTASONE 20 MG PO (22:25)
[2025-03-01] VITALS: BP 136/76
[2025-03-01 01:14] LABS: Glucose - Point of Care 224 mg/dl (70-99)
[2025-03-01 01:16] VITALS: BP 152/90; BMI 27.6
--- NOTE | 2025-03-01 01:20 | PTCARENOTE ---
Pt arrived to room 419-02. Pt ambulated from stretcher to bed. Pt AAOx3, VSS. Pt oriented to room, call wilkinson placed within reach.
[2025-03-01 08:24] LABS: Hematocrit 32.8 % (37.0-47.0); Hemoglobin 11.1 g/dL (12.0-16.0); Mean Corp Hgb Conc. 33.8 g/dL (33.0-37.0); Mean Corpuscular Volume 83.2 fL (81.0-99.0); Platelet Count 605 10^3/uL (130-400); Red Cell Dist. Width 14.4 % (11.5-14.5)
[2025-03-01 08:47] LABS: Glucose - Point of Care 170 mg/dl (70-99)
[2025-03-01 09:02] LABS: Blood Urea Nitrogen 13 mg/dl (7-17); Calcium 10.5 mg/dl (8.4-10.2); Carbon Dioxide 21 mmol/L (22-30); Chloride 105 mmol/L (98-107); Estimated Creatinine Clearance 84 ml/min; Glucose 179 mg/dl (70-99); Potassium 4.5 mmol/L (3.5-5.1); Sodium 133 mmol/L (135-145); eGFR > 60.00
[2025-03-01 09:05] VITALS: BP 143/87
[2025-03-01 09:31] LABS: Glycohemoglobin (HgbA1c) 7.3 % (4.0-5.6)
[2025-03-01] MEDS: MYRBETRIQ EXTENDED RELEASE 25 MG PO (09:47)
[2025-03-01] MEDS: PROTONIX 40 MG PO (09:47)
[2025-03-01] MEDS: LIPITOR 10 MG PO (09:47)
[2025-03-01] MEDS: ZESTRIL 20 MG PO ×2 (09:47→09:52)
[2025-03-01] MEDS: ELIQUIS 5 MG PO ×2 (09:47→19:17)
[2025-03-01] MEDS: CARDIZEM CD 120 MG PO (09:48)
[2025-03-01] MEDS: NOVOLOG FLEXPEN-LOW RESISTANCE 1 UNITS SC ×3 (10:00→18:07)
--- NOTE | 2025-03-01 11:49 | W.PN.HOSP.TC ---
Addendum entered and electronically signed by Beau Daly MD 03/01/25 15:01:
PMR flare
Steroids 20 mg started and will be continued
Will need outpatient rheumatology follow-up for de-escalation/tapering steroids
Oxy continued
Hyponatremia, improved 133
Encourage p.o. intake
Hold hydrochlorothiazide
New onset diabetes hemoglobin A1c 7.3 complicated by hyperglycemia
Start metformin
Diabetes education
Discharge with glucometer lancets strips
Anxiety
Continue amitriptyline
Hypertension continue lisinopril, increased dose as hydrochlorothiazide has been reduced
Give additional 20 mg lisinopril now and start 40 mg tomorrow morning
History of VTE
Continue Eliquis
GERD
Continue PPI
Discharge home
More than 30 minutes spent in discharge including
Final examination of the patient
Summarizing hospital stay
Instructions for continuing care to all relevant caregivers
Preparation of discharge records, prescriptions, and referral forms
Total time spent (in minutes): 36
Original Note:
Today's Communication/Plan
-
Monitor blood pressure
Follow Hba1c
Continue to monitor serum Na
Urine Culture pending
Assessment / Plan
Assessment / Plan
74 year old female with history of polymyalgia rheumatica, gout, DVT PE on Eliquis hypertension, UTI� presents with pains in her shoulders and neck, accompanied by weakness and pain in her thighs, and 10 day history of loss of appetite. Patient was
on 30 day steroid therapy for 2 weeks prior to presentation at ED for unrecalled reason.
Polymyalgia Rheumatica
-20 mg (1 TABLET)
Prednisone
-Follow-up with Rheumatology as an outpatient.
Will likely require prolonged course / slower taper.
-Amitiptyline HCl 40mg�
Hyponatremia
126 at initial presentation, 133 today. Still low, but on an upward trend.
No history of vomiting, diarrhea.
10 day history of loss of appetite due to pain and weakness.
-Urine Sodium 10 L, Serum Osmolality 275 borderline low normal
Considering decreased oral intake as probable cause of hyponatremia.
-Continue to monitor Na levels
-Fluid restriction for now, Stop HCTZ
#Benign Hypertension
-152/90
- Patient is asymptomatic
-Currently on Diltiazem Hcl 120mg
-Lisinopril increased to 40 mg
-HCTZ on hold
#Hyperglycemia / Likely DM-II
- HBA1c 7.3 H
-281 at presentation, currently 179
Continue Novolog FlexPen (Insulin Aspart) Fast Acting
Low Resistance Corrective Insulin
-Initiate Metformin 500mg PO BID
- Diabetes Education
-Follow up with PCP for Diabetic Management
# Thrombocytosis
Platelet 608 H
PT- 15.4 H
-Continue other usual medications including Eliquis for DVT / PE prophylaxis.
Anticipated Discharge: 24 - 48 hours
Subjective/Interval History
-
Date of Service: March 01, 2025
Patient noted that she doesn't have shoulder pain and weakness anymore after taking Prednisone. Appetite is still low, but improving.
Objective Data
-
Labs:
Laboratory Results
03/01/25 03/01/25
07:34 07:35
WBC 8.2
Hgb 11.1 L
Hct 32.8 L
Plt Count 605 H
Sodium 133 L
Potassium 4.5
Chloride 105
Carbon Dioxide 21 L
BUN 13
Creatinine 0.6
Glucose 179 H
Calcium 10.5 H
Vital Signs:
Vital Signs
Temp Pulse Resp BP Pulse Ox
97.8 F 86 16 143/87 92
03/01/25 09:05 03/01/25 09:47 03/01/25 09:05 03/01/25 09:47 03/01/25 09:05
Review of Systems
-
History Source: Patient
Constitutional: Reports No Appetite and Other (Denies fever)
EENT: Reports No Symptoms Reported
Respiratory: Reports No Symptoms
Cardiac: Reports No Symptoms
Abdomen/GI: Reports Other (No abdominal pain, nausea, vomiting, diarrhea)
Genitourinary: Reports Other (Denies dysuria, frequency)
Musculoskeletal: Reports Arthralgias
Skin: Reports No Symptoms
Neuro: Reports No Symptoms
Hematologic / Lymphatic: Reports Other (No bleeding)
Physical Exam
-
General: Well Developed, No Apparent Distress and Conversant
HEENT: Normocephalic, Atraumatic and Anicteric
Respiratory: Clear to Auscultation and Non Labored Respirations
Cardiac: Regular Rhythm and S1/S2
Breast: Deferred by me
GI: Soft, Nontender and Normal Bowel Sounds
Rectal: Deferred by Provider
Genito-urinary: Clear Urine
Musculoskeletal: No Cyanosis and No Edema
Skin: Warm
Neuro: AO x 3, No Motor Deficits and No Sensory Deficits
Psych: Calm
[2025-03-01 12:06] LABS: Glucose - Point of Care 194 mg/dl (70-99)
--- NOTE | 2025-03-01 13:22 | CM ---
CM reviewed chart, patient seen bedside, initial assessment completed. Patient resides with her in a two story home, no basement, first floor set up ([address] + community). Patient reports she is typically independent with ADLs, IADLS, does have a
cane/walker if needed. Patient reports VN in past after knee replacement, denies SNF. Patient PCP Ellis Hi, pharmacy [facility], confirms prescription coverage. Patient denies insecurities at home. Patient anticipated home no needs.
CM will continue to follow for all discharge planning needs.
Plan; likely home no needs.
[2025-03-01 15:23] VITALS: BP 141/70
--- NOTE | 2025-03-01 15:31 | PTCARENOTE ---
I met with Ronna to review diabetes management. She has a PMH of Polymyalgia rheumatica, was tapered off steroids in the past and is inpatient with an exacerbation. She is currently prescribed prednisone while IP, and corrective Lantus.
I educated that prednisone and other steroids will raise glucose, she was not made aware of this by her PCP or student life dean.
I educated that prednisone is tapered slowly and suggested she monitor blood sugar while on prednisone once daily.
I informed her that her HbA1c is 7.3% and to request that per PCP and/or student life dean monitor this with her.
I educated on physiology of T2D, organ damage, managing with medications, monitoring BG, nutrition, activity, sleep and managing stress. I reinforced signs of hyperglycemia, hypoglycemia and hypoglycemia protocol; BS parameters and recommended HbA1c
goals, glucometer and CGM instructions, glucose tracker, medic alert bracelet and outpatient DSME program. Written material provided.
I educated and demonstrated on insulin injection technique, timing, and storage. Discussed long and short acting insulin; onset/peak/duration, and encouraged patient to administer his own injections with RN supervision while admitted. Discussed
normal target glucose ranges. The RN came in during our meeting and confirmed she will not be going home on insulin but Metformin.
Encouraged patient to follow up with his PCP for post d/c appointment and to monitor medication and blood glucose levels. Provided written material on DM. Provided Contour Next glucometer and sample of test strips/lancets. She states she will
purchase additional supplies at [facility] upon discharge.
She has Diabetes office phone number if she has any further questions or concerns.
--- NOTE | 2025-03-01 15:48 | PTCARENOTE ---
Assumed care of pt from previous nurse, pt denies pain. pt left hand splint in place. Pt call wilkinson is within reach, pt rings [place]. will cont to monitor.
[2025-03-01 16:43] LABS: Glucose - Point of Care 150 mg/dl (70-99)
[2025-03-01] MEDS: DELTASONE 20 MG PO (18:06)
[2025-03-01] MEDS: GLUCOPHAGE 500 MG PO (18:06)
--- NOTE | 2025-03-01 18:23 | W.DCSUMMARY ---
Discharge Summary
Discharge Data
Date of Admission: 02/28/25
Date of Discharge: 03/01/25
-
Pending Results: No
Hospital Course
Discharging Physician : Bethany Burgess
Disposition : Home
Primary care physician : Dr. Beau Daly
Principal Discharge diagnosis : Acute Hyponatremia, Polymyalgia Rheumatica, Diabetes Mellitus with hyperglycemia, Essential Hypertension, Anemia
Chronic Discharge diagnosis : Depression, Localized Osteoarthritis, lower leg, gout
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 The patient reports that the
symptoms have progressed over the past week. Patient has history of taking Prednisone for her musculoskeletal pains, but elected to stop the prednisone in May due to a vacation. She reported feeling well for a time. She had severe weakness and
diffuse pain about one month ago and was on a prednisone taper from January 11 through February 08. As usual, she felt immediately improved when she started those steroids. She did note that her symptoms started to return, even a few days into the
10mg / day dosing. Since Wednesday, she has had bilateral thigh pain and weakness resulting in difficulty changing from a seated position to standing position. A 10 day history of appetite loss resulting in decreased oral intake also noted. At the ER,
the patient was ordered ECG, CMP, CBC with differential, Troponin, Urinalysis Reflex to culture for further evaluation. 0.9% Sodium Chloride 1000 ml [Nss] 1,000 ml IV BOLUS also started for fluid rehydration. ECG showed sinus tachycardia, left axis
deviation, and anterolateral infarct that was already previously cited before. Laboratory studies revealed hyponatremia at 126, Hypoglycemia at 281. Hemoglobin, Hematocrit also decreased. Urinalysis showed few bacteria, 1+ Leukocyte esterase; occult
blood reflex positive, but negative for RBC, Urine glucose 2+, and urine albumin 2+, but normal creatinine and eGFR. Patient reports no urinary symptoms. Hba1c ordered for further investigation of elevated serum glucose. Based on the result, the
patient was admitted for further monitoring and studies. Medication review done, HCTZ put on hold, Insulin Aspart (Novolog flexpen-Low resistance) started for hyperglycemia and patient started on Prednisone 20mg once a day, with symptomatic relief.
Screening and admitting instructions given. Patient monitoring done as appropriate. In the morning patient was seen, blood pressure noted to be elevated likely due to putting hydrochlorothiazide on hold, patient's Lisinopril dose was increased to
40mg/day. Patient reported that she was feeling much better with Prednisone. Shoulder, neck pain and weakness no longer reported. She notes that her energy and appetite has increased. No urinary or hypertensive symptom reported. Laboratory studies
came back with the following relevant results: Serum Na: 133, low but improving, Hba1c was 7.3 suggesting Diabetes Mellitus II, Hemoglobin and Hematocrit still on the low trend, normal white blood cells. After further evaluation, patient was deemed
stable and ready for discharge with appropriate outpatient follow up. Hyponatremia attributed likely due to poor oral intake for the past 10 days secondary to Polymyalgia rheumatica exacerbation. Metformin 500mg BID prescribed as management for
Diabetes Mellitus with appropriate Diabetes Mellitus education accompanied by home glucose monitoring kit. Lisinopril 40mg/day will be continued at home with blood pressure monitoring. Prednisone 20mg/day will be continued as outpatient with
Rheumatologic consult in less than a week for de-escalation/tapering plan. Patient instructed to get CBC and CMP within 3 days with outpatient primary care physician consult to assess laboratories and patient's current status.
Important imaging findings :
Procedure findings :
Discharge Plan
-
Patient Disposition: Home (Routine Discharge)
Discharge Diagnosis/Procedures: Acute Hyponatremia, Polymyalgia Rheumatica, Diabetes Mellitus with hyperglycemia, Essential Hypertension, Anemia, Depression, Localized Osteoarthritis, lower leg
Condition: Fair
Diet: Low Cholesterol, Low Sodium and Diabetic, Carb Controlled
Activity: As tolerated
Driving Restrictions: As prior to admission
Bathing Restrictions: None
Blood Work: Repeat CBC and BMP in 3 days, follow up with primary physician.
Referrals:
Ellis Hi MD [Family Provider, [facility]] - in one week
Referral Note:
Camila Rodriguez DO [Non-Admitting Privileges, Rheumatology] - in less than 1 week
Referral Note: Patient is currently on Prednisone 20mg with symptomatic relief. Please reassess patient's medication status/de-escalation/tapering as you deem appropriate. Thank you.
Additional Discharge Medication Instructions: Encourage oral intake. Continue to monitor blood pressure and blood glucose at home. Discuss Prednisone use with Forklift Wheel Loader. Discuss CBC and BMP results with Primary Care Physician.
Stop Fosinopril and Hydrocholothiazide, take Lisinopril instead as instructed. Stop Omeprazole, take Pantoprazole instead if taking. Stop Simvastatin, take atorvastatin instead.
Prescriptions:
New
metformin 500 mg Tablet
500 mg PO BID@0800,1700 30 Days Qty: 60 2RF
lisinopril 20 mg Tablet
40 mg PO DAILY 30 Days Qty: 60 3RF
prednisone 20 mg Tablet
20 mg PO QPM 14 Days Qty: 14 0RF
atorvastatin 10 mg Tablet
10 mg PO DAILY 30 Days Qty: 30 2RF
polyethylene glycol 3350 17 gram Powder In Packet
17 g PO DAILYPRN PRN (Reason: constipation) 15 Days Qty: 14 0RF
pantoprazole 40 mg Tablet,Delayed Release (Dr/Ec)
40 mg PO DAILY 30 Days Qty: 30 0RF
(DME) lancet-gluc coxes-eezqjy-hltcg Kit
See Rx Instructions .Route Qty: 1 0RF
Rx Instructions:
As directed
Continued
amitriptyline 10 mg Tablet
40 mg PO HS Qty: 0
Rx Instructions:
Given in ED
diltiazem HCl 120 mg capsule,extended release 24hr
120 mg PO DAILY
oxycodone-acetaminophen [Percocet] 5-325 mg tablet
1 tab PO Q4HPRN PRN (Reason: pain) Qty: 15 0RF
Eliquis 5 mg Tablet
5 mg PO BID
mirabegron [Myrbetriq] 25 mg Tablet Extended Release 24 Hr
25 mg PO DAILY
Discontinued
omeprazole magnesium [Prilosec OTC] 20 MG tablet,delayed release (DR/EC)
20 mg PO DAILY
Rx Instructions:
Pt states she normally takes daily around 8am, but was told to stop for now because it could interfere with an antibotic she was taking, she last took this med on 11/20
fosinopril 20 MG tablet
20 mg PO DAILY
Rx Instructions:
Pt was taking fosinopril 20mg, now scheduled to take Zestril 20mg tomorrow instead
hydrochlorothiazide 12.5 MG capsule
12.5 mg PO DAILY
simvastatin 10 mg Tablet
10 mg PO DAILY
Discharge Orders:
Discharge Patient (As Directed); Ordered 03/01/25
Ordered By: Bethany Burgess
Discharge Date and Time
Print Language: CZECH
--- NOTE | 2025-03-01 19:58 | PTCARENOTE ---
Pt paperwork reviewed for dc, iv removed, belongings from room taken with pt. escorted to car via w/c to taking pt home
== END 2025-03-01 19:52 | disposition home or self-care (01) | DRG 546 ==
LOC: 4 WEST ACU 22:20
PROVIDERS: Emergency Medicine; Registered Nurse; ADMITTING PHYSICIAN Hospitalist; ATTENDING PHYSICIAN Hospitalist; EMERGENCY PHYSICIAN Emergency Medicine; FAMILY PHYSICIAN Family Medicine
DX: M35.3 Polymyalgia rheumatica (principal); E87.1 Hypo-osmolality and hyponatremia; E11.65 Type 2 diabetes mellitus with hyperglycemia; E11.649 Type 2 diabetes mellitus with hypoglycemia without coma; I10 Essential (primary) hypertension; D64.9 Anemia, unspecified; F32.A Depression, unspecified; M17.10 Unilateral primary osteoarthritis, unspecified knee; F41.9 Anxiety disorder, unspecified; K21.9 Gastro-esophageal reflux disease without esophagitis; D75.839 Thrombocytosis, unspecified; I25.2 Old myocardial infarction; Z79.84 Long term (current) use of oral hypoglycemic drugs; K59.00 Constipation, unspecified; Z79.01 Long term (current) use of anticoagulants; Z79.899 Other long term (current) drug therapy; Z86.718 Personal history of other venous thrombosis and embolism; E83.52 Hypercalcemia; Z96.653 Presence of artificial knee joint, bilateral; Z87.891 Personal history of nicotine dependence; D72.829 Elevated white blood cell count, unspecified; E78.00 Pure hypercholesterolemia, unspecified; Z86.711 Personal history of pulmonary embolism
CPT/HCPCS: 80048; 80053; 81003; 81015; 82962; 83036; 83930; 83935; 84300; 84484; 84550; 85025; 85027; 87086; 93005; 96360; 99285

== ENCOUNTER → 2025-03-05 10:37 | Outpatient (REF) | payer MEDICARE, OTHER, SELFPAY ==
[2025-03-05 11:23] LABS: Hematocrit 35.5 % (37.0-47.0); Hemoglobin 11.3 g/dL (12.0-16.0); Mean Corp Hgb Conc. 31.8 g/dL (33.0-37.0); Mean Corpuscular Volume 86.8 fL (81.0-99.0); Nucleated Red Blood Cells % 0 %; Platelet Count 614 10^3/uL (130-400); Red Cell Dist. Width 15.0 % (11.5-14.5)
[2025-03-05 11:53] LABS: ALT (SGPT) 30 U/L (0-35); AST (SGOT) 16 U/L (14-36); Albumin 3.5 g/dl (3.5-5.0); Alkaline Phosphatase 112 U/L (38-126); Blood Urea Nitrogen 15 mg/dl (7-17); Calcium 10.8 mg/dl (8.4-10.2); Carbon Dioxide 28 mmol/L (22-30); Chloride 105 mmol/L (98-107); Glucose 110 mg/dl (70-99); Potassium 4.5 mmol/L (3.5-5.1); Sodium 138 mmol/L (135-145); Total Protein 5.8 g/dl (6.3-8.2); eGFR > 60.00
== END ==
LOC: REG 10:37
PROVIDERS: ATTENDING PHYSICIAN Family Medicine
DX: E87.1 Hypo-osmolality and hyponatremia (principal)
CPT/HCPCS: 36415; 80053; 85025

== ENCOUNTER → 2025-03-08 09:32 | Outpatient (REF) | payer MEDICARE, OTHER, SELFPAY ==
[2025-03-08 10:51] LABS: Hematocrit 40.4 % (37.0-47.0); Hemoglobin 13.0 g/dL (12.0-16.0); Mean Corp Hgb Conc. 32.2 g/dL (33.0-37.0); Mean Corpuscular Volume 86.9 fL (81.0-99.0); Nucleated Red Blood Cells % 0 %; Platelet Count 535 10^3/uL (130-400); Red Cell Dist. Width 15.5 % (11.5-14.5)
[2025-03-08 13:03] LABS: Folate 6.4 ng/ml (2.76-20); Vitamin B12 341 pg/ml (239-931)
== END ==
LOC: REG 09:32
PROVIDERS: ATTENDING PHYSICIAN Internal Medicine Hematology & Oncology; FAMILY PHYSICIAN Family Medicine
DX: C64.1 Malignant neoplasm of right kidney, except renal pelvis (principal); I26.99 Other pulmonary embolism without acute cor pulmonale; D47.2 Monoclonal gammopathy; I82.402 Acute embolism and thrombosis of unspecified deep veins of left lower extremity; D51.9 Vitamin B12 deficiency anemia, unspecified; E87.1 Hypo-osmolality and hyponatremia
CPT/HCPCS: 36415; 81206; 81207; 81208; 82607; 82746; 82784; 83521; 84155; 84165; 84443; 85025; 86334

== ENCOUNTER 2025-04-01 14:16 | Emergency (ER) | payer MEDICARE, OTHER, SELFPAY ==
[2025-04-01 14:18] VITALS: BP 134/94
[2025-04-01 15:38] VITALS: BP 142/71
--- NOTE | 2025-04-01 15:43 | ED.GENMED ---
History of Present Illness
General
Chief Complaint: Generalized Pain
Source: patient
Exam Limitations: none
Time Seen by Provider: 04/01/25 15:41
History of Present Illness
History of Present Illness:
74-year-old female with history of PE/DVT on Eliquis, IDDM, polymyalgia rheumatica, HTN, IBS, renal CA with right nephrectomy, presents for debilitating generalized joint pain mainly in her neck, shoulders and UE's and hips, no pain in her legs but
legs feel weak since taking her last dose of steroid one week ago. Pain was so bad her had to help her out of bed to get here.
She typically uses Prednisone 20 mg daily for these flares but her Philanthropy Officer told her to not take any steroids until she gets a second Rheumatology appointment which is not until May 16. She has appt with Infectious disease same day to 'try
to figure out what's wrong.' Denies F/C/N/V/D/C
Past History
Past History
ED Past Medical History: None, Cancer, GERD, HTN, Hypercholesterolemia and Other (PE/DVT)
ED Past Surgical History: Cholecystectomy, Orthopedic and Urological
Social History
Tobacco: Non-smoker
Alcohol: None
Drug: None
Personal:
Living: with family
Review of Systems
Review of Systems
Allergies reviewed?: Yes
All Other Systems: ROS reviewed and negative except as documented in HPI and ROS
Phy Exam
Physical Exam
Physical Exam:
GENERAL: No acute distress. A&Ox3.
CONSTITUTIONAL: Afebrile.
EYES: clear, conjunctivae normal, mild subconjunctival hemorrhage left eye
ENMT: Dry mucus membranes, Pharynx nl
RESPIRATORY: Regular respirations, nonlabored, lungs clear.
CARDIOVASCULAR: Regular rate and rhythm, no murmurs, no rubs.
GI: Soft, nontender, normal BS
MUSCULOSKELETAL: Moves all extremities well but with complaints of pain. No swelling, redness or warmth of joints. Well perfused.
SKIN: Warm, dry, pink
PSYCH: Anxious mood and affect. Well kept, interactive and appropriate
NEUROLOGIC: Awake, alert and oriented. No focal neurological deficits
Course
Orders/Labs/Results
Orders:
Orders
04/01/25 15:48
0.9% Sodium Chloride 1000 ml [Nss] 1,000 ml IV BOLUS
04/01/25 16:07
CRP [C-Reactive Protein] Urgent
Complete Blood Count/With Diff Urgent
Comprehensive Metabolic Panel Urgent
Sed Rate [Erythrocyte Sed Rate] Urgent
04/01/25 17:15
Urinalysis Reflex To Culture Urgent
Date Specimen was Collected: 04/01/25
Time Specimen was Collected: 17:12
Urine Microscopic Reflex Cult Urgent
Urine Culture Urgent
ERNESTO Source: U
Specimen Description:
Date Specimen was Collected: 04/01/25
Time Specimen was Collected: 17:12
04/01/25 17:46
MethylPREDNISolone ACETATE [Depo-Medrol] 60 mg IM NOW STA
Abnormal Lab Results
04/01/25 04/01/25
16:07 17:15
WBC 11.4 H 10^3/uL
(4.8-10.8)
RBC 4.10 L 10^6/uL
(4.20-5.40)
Hgb 11.7 L g/dL
(12.0-16.0)
Hct 35.0 L %
(37.0-47.0)
RDW 15.6 H %
(11.5-14.5)
Absolute Neuts (auto) 8.8 H 10^3/uL
(1.4-6.5)
Absolute Monos (auto) 1.2 H 10^3/uL
(0.1-0.6)
Neutrophils % 76.8 H %
(42.2-75.2)
Lymphocytes % 10.9 L %
(20.5-51.1)
Monocytes % 10.5 H %
(1.7-9.3)
ESR 57 H mm/hour
(0-20)
Sodium 132 L mmol/L
(135-145)
Carbon Dioxide 21 L mmol/L
(22-30)
Glucose 135 H mg/dl
(70-99)
Alkaline Phosphatase 224 H U/L
(38-126)
C-Reactive Protein 159.10 H mg/L
(0.0-10.00)
Total Protein 5.9 L g/dl
(6.3-8.2)
Urine Ketones 1+ A
(Negative)
Ur Occult Blood Reflex 1+ A
(Negative)
Leukocyte Esterase Rfl 2+ A
(Negative)
Urine Bacteria (Reflex) Moderate A
(Negative)
Urine Albumin (Reflex) 1+ A
(Neg - Trace)
04/01/25 16:07
04/01/25 16:07
Vital Signs
Initial and Last Documented VS:
Initial Vital Signs
Temp Pulse Resp BP Pulse Ox
98.8 F 107 22 134/94 94
04/01/25 14:18 04/01/25 14:18 04/01/25 14:18 04/01/25 14:18 04/01/25 14:18
Last Documented Vital Signs
Temp Pulse Resp BP Pulse Ox
98.8 F 77 17 140/72 95
04/01/25 14:18 04/01/25 18:00 04/01/25 18:00 04/01/25 18:00 04/01/25 18:00
MDM/Problems Addressed
Differential Diagnosis Includes:
Flare of SC,
MDM/Problems Addressed:
74-year-old female with history of PE/DVT on Eliquis, IDDM, polymyalgia rheumatica, HTN, IBS, renal CA with right nephrectomy, presents for debilitating generalized joint pain mainly in her neck, shoulders and UE's and hips, no pain in her legs but
legs feel weak, since taking her last dose of steroid one week ago. Pain was so bad her had to help her out of bed to get here.
She typically uses Prednisone 20 mg daily for these flares but her Philanthropy Officer told her to not take any steroids until she gets a second Rheumatology appointment which is not until May 16. She has appt with Infectious disease same day to 'try
to figure out what's wrong.' Denies F/C/N/V/D/C
Plan:
1. Perform basic blood work to identify any underlying issues, including reassessment of CRP levels.
2. If lab results are normal, consider starting the patient on 20 mg of prednisone as she has at home, until the patient can consult with her metal furniture panel coverer after the holiday weekend in 2-3 dyays
3. Follow up with rheumatology and infectious disease specialists in May for further assessment and management.
4. Administer IV fluids to ensure hydration as a supportive measure during this visit.
Pt has Prednisone 10 mg tabs at home provided by her PCP she can take.
4:45 p.m.
CBC with no clinically significant abnormality
CMP alk phos elevated at 224 up from 145 5 days ago, otherwise no clinically significant abnormality
CRP 159.1 up from 41.35 days ago
ESR 57, up from 25 days ago
U/A neg
Consulted Rheumatology Dr. Kelley who recommends Depo-Medrol 60 mg IM now and discharged with a Medrol Dosepak. She will see her in her office on Wednesday, 4 days)
Patient is very happy with this plan.
*Pulse Oximetry
SaO2: 94
Oxygen Mode of Delivery: Room air
Patient hypoxic: not evaluated
*Critical Care Note
Total Time (30-74mins, 75-104mins- exclusive of procedures): Not Applicable
ED Attending Note
-
Portions of this chart may have been created with voice recognition software.� Occasional wrong word or��sound alike� substitutions may have occurred due to the inherent limitations of voice recognition software.
Discharge Plan
Departure
Patient Disposition: Home (Routine Discharge)
Date of Disposition: 04/01/25
Time of Disposition: 17:33
Patient with high blood pressure during this ER visit?: No
Condition: Fair
Discharge Problem:
PMR (polymyalgia rheumatica)
Instructions: Polymyalgia rheumatica and giant cell arteritis
Prescriptions:
New
methylprednisolone [Medrol (Loc)] 4 mg tablets,dose pack
See Rx Instructions PO .COMPLEX Qty: 21 0RF
Rx Instructions:
orally per package directions
No Action
amitriptyline 10 mg Tablet
40 mg PO HS Qty: 0
Rx Instructions:
Given in ED
diltiazem HCl 120 mg capsule,extended release 24hr
120 mg PO DAILY
oxycodone-acetaminophen [Percocet] 5-325 mg tablet
1 tab PO Q4HPRN PRN (Reason: pain) Qty: 15 0RF
Eliquis 5 mg Tablet
5 mg PO BID
mirabegron [Myrbetriq] 25 mg Tablet Extended Release 24 Hr
25 mg PO DAILY
metformin 500 mg Tablet
500 mg PO BID@0800,1700 30 Days Qty: 60 2RF
lisinopril 20 mg Tablet
40 mg PO DAILY 30 Days Qty: 60 3RF
prednisone 20 mg Tablet
20 mg PO QPM 14 Days Qty: 14 0RF
atorvastatin 10 mg Tablet
10 mg PO DAILY 30 Days Qty: 30 2RF
polyethylene glycol 3350 17 gram Powder In Packet
17 g PO DAILYPRN PRN (Reason: constipation) 15 Days Qty: 14 0RF
pantoprazole 40 mg Tablet,Delayed Release (Dr/Ec)
40 mg PO DAILY 30 Days Qty: 30 0RF
(DME) lancet-gluc rskki-jpyiid-jvlaj Kit
See Rx Instructions .Route Qty: 1 0RF
Rx Instructions:
As directed
Referrals:
Hallie Kelley MD [Active, Rheumatology] - Keep scheduled appt
UNKNOWN - PT DOES,NOT KNOW [Unknown Provider]
Activity Restrictions/Additional Instructions:
As we discussed, metal furniture panel coverer Dr. Lara will see you on Wednesday. In her [place] office. Her staff will give you a call on Wednesday to give you the time.
You were given a dose of steroid injection here today
I sent a prescription to your pharmacy for a Medrol Dosepak, pick it up and start it tomorrow
Interventions
Interventions:
*Risk Screen - Suicide Last Done: 04/01/25 14:18
*General Assessment Last Done: 04/01/25 14:18
*Neglect/Abuse Screening Last Done: 04/01/25 14:18
*ED- Fall Risk Assessment Last Done: 04/01/25 16:10
*ED COVID-19 Vaccine History Last Done: 04/01/25 16:10
*Nursing Disposition Last Done: 04/01/25 18:36
Discharge Date and Time
Print Language: [id number]
[2025-04-01 16:09] VITALS: BMI 26.2
[2025-04-01] MEDS: NSS 1000 IV (16:09)
[2025-04-01 16:13] LABS: Hematocrit 35.0 % (37.0-47.0); Hemoglobin 11.7 g/dL (12.0-16.0); Mean Corp Hgb Conc. 33.4 g/dL (33.0-37.0); Mean Corpuscular Volume 85.4 fL (81.0-99.0); Nucleated Red Blood Cells % 0 %; Platelet Count 281 10^3/uL (130-400); Red Cell Dist. Width 15.6 % (11.5-14.5)
[2025-04-01 16:29] LABS: ALT (SGPT) 19 U/L (0-35); AST (SGOT) 18 U/L (14-36); Albumin 3.6 g/dl (3.5-5.0); Alkaline Phosphatase 224 U/L (38-126); Blood Urea Nitrogen 10 mg/dl (7-17); Calcium 10.1 mg/dl (8.4-10.2); Carbon Dioxide 21 mmol/L (22-30); Chloride 105 mmol/L (98-107); Estimated Creatinine Clearance 64 ml/min; Glucose 135 mg/dl (70-99); Potassium 4.2 mmol/L (3.5-5.1); Sodium 132 mmol/L (135-145); Total Protein 5.9 g/dl (6.3-8.2); eGFR > 60.00
[2025-04-01 16:46] LABS: C-Reactive Protein 159.10 mg/L (0.0-10.00)
[2025-04-01 17:00] VITALS: BP 130/69
[2025-04-01 17:23] LABS: Urine Character Clear (Clear)
[2025-04-01 18:00] VITALS: BP 140/72
[2025-04-01] MEDS: DEPO-MEDROL 60 MG IM (18:01)
[2025-04-01 18:09] LABS: Urine Red Blood Cell 0-2 /HPF (0-2); Urine Squamous Cell 26-30 /LPF (Few)
== END 2025-04-01 18:36 | disposition home or self-care (01) ==
LOC: EMR 14:16
PROVIDERS: Registered Nurse; EMERGENCY PHYSICIAN Emergency Medicine; FAMILY PHYSICIAN Family Medicine
DX: M35.3 Polymyalgia rheumatica (principal); E11.9 Type 2 diabetes mellitus without complications; E78.00 Pure hypercholesterolemia, unspecified; I10 Essential (primary) hypertension; Z86.718 Personal history of other venous thrombosis and embolism; Z86.711 Personal history of pulmonary embolism; Z79.01 Long term (current) use of anticoagulants; Z85.528 Personal history of other malignant neoplasm of kidney; Z90.5 Acquired absence of kidney
CPT/HCPCS: 96372; 96360; 99284; 80053; 81003; 81015; 85025; 85652; 86140; 87086

== ENCOUNTER → 2025-04-25 08:27 | Outpatient (REF) | payer MEDICARE, OTHER, SELFPAY ==
[2025-04-25] MEDS: ATIVAN 0.5 MG PO (09:09)
[2025-04-25 09:17] LABS: Hematocrit 37.3 % (37.0-47.0); Hemoglobin 12.0 g/dL (12.0-16.0); Mean Corp Hgb Conc. 32.2 g/dL (33.0-37.0); Mean Corpuscular Volume 87.1 fL (81.0-99.0); Nucleated Red Blood Cells % 0 %; Platelet Count 510 10^3/uL (130-400); Red Cell Dist. Width 15.5 % (11.5-14.5)
[2025-04-25 09:19] VITALS: BP 136/83; BP_SYST 80
[2025-04-25 09:22] LABS: INR 1.48; PT 18.4 Sec (11.4-14.6)
[2025-04-25 11:06] VITALS: BP 118/56; BP_SYST 75
== END ==
LOC: RADI 08:27
PROVIDERS: ATTENDING PHYSICIAN Internal Medicine Rheumatology; FAMILY PHYSICIAN Family Medicine
DX: C90.00 Multiple myeloma not having achieved remission (principal); D68.8 Other specified coagulation defects
CPT/HCPCS: 36415; 38222; 77012; 85025; 85610; 88305; 88311; 88312; 88313

== ENCOUNTER 2025-04-28 16:29 | Observation (INO) | payer MEDICARE, OTHER, SELFPAY ==
[2025-04-28] VITALS (11 sets, daily range): BP systolic 124–161; BP diastolic 64–84; BMI 25.3; BMI 24.1
[2025-04-28 11:09] LABS: Hematocrit 32.7 % (37.0-47.0); Hemoglobin 10.5 g/dL (12.0-16.0); Mean Corp Hgb Conc. 32.1 g/dL (33.0-37.0); Mean Corpuscular Volume 84.9 fL (81.0-99.0); Nucleated Red Blood Cells % 0 %; Platelet Count 432 10^3/uL (130-400); Red Cell Dist. Width 15.5 % (11.5-14.5)
[2025-04-28 11:21] LABS: INR 1.59; PT 19.2 Sec (11.4-14.6)
[2025-04-28 11:22] LABS: APTT 34.2 Sec (23.4-35.0)
[2025-04-28 11:28] LABS: ALT (SGPT) 12 U/L (0-35); AST (SGOT) 15 U/L (14-36); Albumin 3.2 g/dl (3.5-5.0); Alkaline Phosphatase 124 U/L (38-126); Blood Urea Nitrogen 18 mg/dl (7-17); Calcium 10.5 mg/dl (8.4-10.2); Carbon Dioxide 24 mmol/L (22-30); Chloride 103 mmol/L (98-107); Estimated Creatinine Clearance 64 ml/min; Glucose 123 mg/dl (70-99); Potassium 4.3 mmol/L (3.5-5.1); Sodium 131 mmol/L (135-145); Total Protein 5.7 g/dl (6.3-8.2); eGFR > 60.00
--- NOTE | 2025-04-28 11:53 | ED.GENMED ---
History of Present Illness
<Les Cottrell PA-C - Last Filed: 04/28/25 15:55>
General
Chief Complaint: Weakness
Source: patient
Exam Limitations: none
Time Seen by Provider: 04/28/25 11:22
History of Present Illness
History of Present Illness:
74-year-old female presents with worsening diffuse pain and myalgias. She has had the symptoms for over a year. Over the past 5 days however the pain is increased to the point where she is not getting out of bed. She also notes chills and sweats
that started 2 nights ago. 3 days ago, she had a bone marrow biopsy performed. No urinary symptoms. No vomiting. She has been using oxycodone for the pain. She was diagnosed with polymyalgia rheumatica last year and had improvement with
prednisone. She was on prednisone for quite a while however developed compression fractions of her back. She weaned off the prednisone and is currently not on it. She recently changed her statin medication to atorvastatin. She also recently
started metformin. No measurable fever at home. She typically is able to ambulate the cane however the past 2 days she has not been able to get out of bed
Past History
<Les Cottrell PA-C - Last Filed: 04/28/25 15:55>
Past History
ED Past Medical History: None, Cancer, GERD, HTN, Hypercholesterolemia and Other (PE/DVT)
ED Past Surgical History: Cholecystectomy, Orthopedic and Urological
Social History
Tobacco: Non-smoker
Alcohol: None
Drug: None
Personal:
Living: with family
Phy Exam
<Les Cottrell PA-C - Last Filed: 04/28/25 15:55>
Physical Exam
Physical Exam:
General: Well-appearing female no acute respiratory distress
HEENT: Normal cephalic atraumatic
Heart: Regular rate and rhythm lungs: Clear no wheezing
Abdomen soft nontender
Skin is warm no rash
Course
<Les Cottrell PA-C - Last Filed: 04/28/25 15:55>
Orders/Labs/Results
Orders:
Orders
04/28/25 11:01
CMP [Comprehensive Metabolic Panel] Urgent
Complete Blood Count/With Diff Urgent
PT/INR [Prothrombin Time] Urgent
PTT Urgent
Troponin I Urgent
04/28/25 11:52
CR Chest - 2 Views Urgent
Comment:
Reason For Exam: fatigue
04/28/25 12:07
COVID-19 Antigen Urgent
Source: Nasal Swab
CPK [Creatine Phosphokinase] Urgent
CRP [C-Reactive Protein] Urgent
Ehrlichia/Anaplasma by PCR [S] Urgent
Lyme Progressive Urgent
Sed Rate [Erythrocyte Sed Rate] Urgent
Blood Culture Q30M
ERNESTO Source: Blood/Venous
Specimen Description:
Blood Culture Q30M
ERNESTO Source: Blood/Venous
Specimen Description:
Blood Parasites Urgent
ERNESTO Source: Blood/Venous
Specimen Description:
Influenza A+B Rapid Molecular Urgent
ERNESTO Source: Nasal Swab
Specimen Description:
04/28/25 12:58
Urinalysis Reflex To Culture Urgent
Date Specimen was Collected: 04/28/25
Time Specimen was Collected: 12:57
Urine Microscopic Reflex Cult Urgent
04/28/25 13:00
Straight Cath As Directed
Frequency: One time now
04/28/25 14:02
Add On- LAB Urgent
Tests Added?: sed rate
04/28/25 15:46
HYDROmorphone [Dilaudid] 0.5 mg IV NOW STA
Abnormal Lab Results
04/28/25 04/28/25 04/28/25
11:01 12:07 12:58
WBC 12.1 H 10^3/uL
(4.8-10.8)
RBC 3.85 L 10^6/uL
(4.20-5.40)
Hgb 10.5 L g/dL
(12.0-16.0)
Hct 32.7 L %
(37.0-47.0)
MCHC 32.1 L g/dL
(33.0-37.0)
RDW 15.5 H %
(11.5-14.5)
Plt Count 432 H 10^3/uL
(130-400)
Absolute Neuts (auto) 8.9 H 10^3/uL
(1.4-6.5)
Absolute Monos (auto) 1.4 H 10^3/uL
(0.1-0.6)
Lymphocytes % 13.1 L %
(20.5-51.1)
Monocytes % 11.4 H %
(1.7-9.3)
ESR 69 H mm/hour
(0-20)
PT 19.2 H Sec
(11.4-14.6)
Sodium 131 L mmol/L
(135-145)
BUN 18 H mg/dl
(7-17)
Glucose 123 H mg/dl
(70-99)
Calcium 10.5 H mg/dl
(8.4-10.2)
Creatine Kinase < 20 L U/L
(30-135)
C-Reactive Protein 244.20 H mg/L
(0.0-10.00)
Total Protein 5.7 L g/dl
(6.3-8.2)
Albumin 3.2 L g/dl
(3.5-5.0)
Urine Bacteria (Reflex) Few A
(Negative)
Urine Albumin (Reflex) 2+ A
(Neg - Trace)
04/28/25 11:01
04/28/25 11:01
Vital Signs
Initial and Last Documented VS:
Initial Vital Signs
Temp Pulse Resp BP Pulse Ox
98.0 F 83 18 134/68 96
04/28/25 10:45 04/28/25 10:45 04/28/25 10:45 04/28/25 10:45 04/28/25 10:45
Last Documented Vital Signs
Temp Pulse Resp BP Pulse Ox
98.0 F 83 18 157/78 94
04/28/25 10:45 04/28/25 15:15 04/28/25 15:15 04/28/25 15:00 04/28/25 15:15
<Thelma Rosas MD - Last Filed: 04/28/25 15:47>
Orders/Labs/Results
Orders:
Orders
04/28/25 11:01
CMP [Comprehensive Metabolic Panel] Urgent
Complete Blood Count/With Diff Urgent
PT/INR [Prothrombin Time] Urgent
PTT Urgent
Troponin I Urgent
04/28/25 11:52
CR Chest - 2 Views Urgent
Comment:
Reason For Exam: fatigue
04/28/25 12:07
COVID-19 Antigen Urgent
Source: Nasal Swab
CPK [Creatine Phosphokinase] Urgent
CRP [C-Reactive Protein] Urgent
Ehrlichia/Anaplasma by PCR [S] Urgent
Lyme Progressive Urgent
Sed Rate [Erythrocyte Sed Rate] Urgent
Blood Culture Q30M
ERNESTO Source: Blood/Venous
Specimen Description:
Blood Culture Q30M
ERNESTO Source: Blood/Venous
Specimen Description:
Blood Parasites Urgent
ERNESTO Source: Blood/Venous
Specimen Description:
Influenza A+B Rapid Molecular Urgent
ERNESTO Source: Nasal Swab
Specimen Description:
04/28/25 12:58
Urinalysis Reflex To Culture Urgent
Date Specimen was Collected: 04/28/25
Time Specimen was Collected: 12:57
Urine Microscopic Reflex Cult Urgent
04/28/25 13:00
Straight Cath As Directed
Frequency: One time now
04/28/25 14:02
Add On- LAB Urgent
Tests Added?: sed rate
04/28/25 15:46
HYDROmorphone [Dilaudid] 0.5 mg IV NOW STA
Abnormal Lab Results
04/28/25 04/28/25 04/28/25
11:01 12:07 12:58
WBC 12.1 H 10^3/uL
(4.8-10.8)
RBC 3.85 L 10^6/uL
(4.20-5.40)
Hgb 10.5 L g/dL
(12.0-16.0)
Hct 32.7 L %
(37.0-47.0)
MCHC 32.1 L g/dL
(33.0-37.0)
RDW 15.5 H %
(11.5-14.5)
Plt Count 432 H 10^3/uL
(130-400)
Absolute Neuts (auto) 8.9 H 10^3/uL
(1.4-6.5)
Absolute Monos (auto) 1.4 H 10^3/uL
(0.1-0.6)
Lymphocytes % 13.1 L %
(20.5-51.1)
Monocytes % 11.4 H %
(1.7-9.3)
ESR 69 H mm/hour
(0-20)
PT 19.2 H Sec
(11.4-14.6)
Sodium 131 L mmol/L
(135-145)
BUN 18 H mg/dl
(7-17)
Glucose 123 H mg/dl
(70-99)
Calcium 10.5 H mg/dl
(8.4-10.2)
Creatine Kinase < 20 L U/L
(30-135)
C-Reactive Protein 244.20 H mg/L
(0.0-10.00)
Total Protein 5.7 L g/dl
(6.3-8.2)
Albumin 3.2 L g/dl
(3.5-5.0)
Urine Bacteria (Reflex) Few A
(Negative)
Urine Albumin (Reflex) 2+ A
(Neg - Trace)
04/28/25 11:01
04/28/25 11:01
Vital Signs
Initial and Last Documented VS:
Initial Vital Signs
Temp Pulse Resp BP Pulse Ox
98.0 F 83 18 134/68 96
04/28/25 10:45 04/28/25 10:45 04/28/25 10:45 04/28/25 10:45 04/28/25 10:45
Last Documented Vital Signs
Temp Pulse Resp BP Pulse Ox
98.0 F 83 18 157/78 94
04/28/25 10:45 04/28/25 15:15 04/28/25 15:15 04/28/25 15:00 04/28/25 15:15
<Les Cottrell PA-C - Last Filed: 04/28/25 15:55>
MDM/Problems Addressed
Differential Diagnosis Includes:
Patient with diffuse myalgias and generalized weakness some of which is chronic in nature but there is concern with recent bone marrow biopsy that she could be bacteremic given the chills and sweats. Check blood cultures inflammatory markers
tickborne profile CPK.
<Les Cottrell PA-C - Last Filed: 04/28/25 15:55>
*Pulse Oximetry
SaO2: 96
Oxygen Mode of Delivery: Room air
Patient hypoxic: no
*Critical Care Note
Total Time (30-74mins, 75-104mins- exclusive of procedures): Not Applicable
<Les Cottrell PA-C - Last Filed: 04/28/25 15:55>
Update Note
Update Note:
Workup demonstrates elevated CRP at a value of 244. Patient unable to sit up or roll over in bed secondary to significant pain. Her white blood cell count is slightly elevated. Consider flare of PMR versus possible bacteremia from recent bone
marrow biopsy. Discussed with emergency room attending who saw the patient. Unsafe for discharge. Will admit to hospital for diffuse pain
ED Attending Note
<Les Cottrell PA-C - Last Filed: 04/28/25 15:55>
-
Portions of this chart may have been created with voice recognition software.� Occasional wrong word or��sound alike� substitutions may have occurred due to the inherent limitations of voice recognition software.
<Thelma Rosas MD - Last Filed: 04/28/25 15:47>
ED Attending Note
Patient seen and examined by attending physician: Yes
I performed the substantive portion of visit, reviewed & personally made and approve the management plan that is documented in note by myself or NAOMI.: Yes
ED Attending Note:
Patient appears restless and uncomfortable. However, she is breathing comfortably. She has a nonfocal neurological exam. Heart sounds regular. Patient states she cannot even turn around in bed due to severe body pain.
Discharge Plan
Departure
Patient Disposition: Admit
Date of Disposition: 04/28/25
Time of Disposition: 15:55
Presentation/result/management discussed w/ accepting MD/DO: Hospitalist
Discharge Problem:
Diffuse pain
Prescriptions:
No Action
amitriptyline 10 mg Tablet
40 mg PO HS Qty: 0
Rx Instructions:
Given in ED
Eliquis 5 mg Tablet
5 mg PO BID
mirabegron [Myrbetriq] 25 mg Tablet Extended Release 24 Hr
25 mg PO DAILY
metformin 500 mg Tablet
500 mg PO BID@0800,1700 30 Days Qty: 60 2RF
lisinopril 20 mg Tablet
40 mg PO DAILY 30 Days Qty: 60 3RF
prednisone 20 mg Tablet
20 mg PO QPM 14 Days Qty: 14 0RF
atorvastatin 10 mg Tablet
10 mg PO DAILY 30 Days Qty: 30 2RF
pantoprazole 40 mg Tablet,Delayed Release (Dr/Ec)
40 mg PO DAILY 30 Days Qty: 30 0RF
(DME) lancet-gluc [id number] Kit
See Rx Instructions .Route Qty: 1 0RF
Rx Instructions:
As directed
Referrals:
Ellis Hi MD [Family Provider, Family Practice]
Interventions
Interventions:
*Risk Screen - Suicide Last Done: 04/28/25 10:45
*General Assessment Last Done: 04/28/25 10:45
*Neglect/Abuse Screening Last Done: 04/28/25 10:45
*ED- Fall Risk Assessment Last Done: 04/28/25 10:45
*ED COVID-19 Vaccine History Last Done: 04/28/25 10:45
ED- Cardiac Assessment Last Done: 04/28/25 10:45
ED- Neurological Assessment Last Done: 04/28/25 10:45
ED- Pulmonary Assessment Last Done: 04/28/25 10:45
Discharge Date and Time
Print Language: AZERI
[2025-04-28 12:10] LABS: Troponin I < 0.012 ng/ml
[2025-04-28 12:52] LABS: COVID-19 Antigen Negative (Negative)
[2025-04-28 13:19] LABS: Urine Character Clear (Clear)
[2025-04-28 13:54] LABS: Urine Red Blood Cell 0-2 /HPF (0-2); Urine Squamous Cell 0-2 /LPF (Few); Urine White Cell 0-2 /HPF (0-5)
[2025-04-28 14:00] LABS: C-Reactive Protein 244.20 mg/L (0.0-10.00)
--- NOTE | 2025-04-28 15:55 | HPS.HSE ---
Family Physician
-
Family Physician: Ellis Hi
Chief Complaint
-
headache
History of Present Illness
74-year-old female with PMH for PMR, anxiety, HLD, HTN, GERD presents with worsening diffuse pain and myalgias since . patient stated generalized body ache, headache, chills and shakes. she has bone marrow biopsy to r/o multiple myeloma on
Wednesday and her pain started on . patient complained of frontal headache. she is bedridden since Wednesday due to the pain. denied fever, cough, congestion, chest pain, sob. denied abdominal pain,n,v,d. denied dysuria or hematuria.
upon arrival noted elevated ESR and CRP. admitting for further management.
Medical History
Past Medical History
Past Medical History: Reports Other
Additional Past Medical History:
Hypertension, diverticulosis, hiatal hernia, fibrocystic disease of breast, hyperlipidemia, insomnia, DJD, colonic polyps, dysphagia, meniscus tear repair, melanoma, PMR
Past Surgical History: Reports Other
Additional Past Surgical History:
Polypectomy, left wrist open reduction internal fixation, meniscus repair, ovarian cyst resection, 2 surgery, knee replacement, right knee replacement, incisional hernia repair, right upper thigh melanoma, right kidney removal, right carpal tunnel
release, bilateral cataracts, ovarian cystectomy, cholecystectomy
Social History
Tobacco: Former Smoker
Alcohol: None
Drug: None
Personal:
Living: With Family
Family History
Family History: Not pertinent
Allergies / Home Medications
Allergies reflects when Allergies were last updated in [facility].
Home Medications with original date entered in [facility]
Allergy/Medication List:
Allergies
Allergy/AdvReac Type Severity Reaction Status Date / Time
No Known Allergies Allergy Verified 04/01/25 14:18
Home Medications
amitriptyline 10 mg tablet 40 mg PO HS Mental Health/Anxiety ##0 03/22/10
apixaban 5 mg tablet (Eliquis) 5 mg PO BID Blood Clot Prevention/Tx 02/28/25
mirabegron 25 mg tablet,extended release 24 hr (Myrbetriq) 25 mg PO DAILY Urinary Issue 02/28/25
atorvastatin 10 mg tablet 10 mg PO DAILY 30 days #30 tabs 03/01/25
lisinopril 20 mg tablet 40 mg (2 x 20 mg) PO DAILY 30 days #60 tabs 03/01/25
metformin 500 mg tablet 500 mg PO BID@0800,1700 30 days #60 tabs 03/01/25
pantoprazole 40 mg tablet,delayed release 40 mg PO DAILY 30 days #30 tabs 03/01/25
acetaminophen 650 mg tablet,extended release (Tylenol Arthritis Pain) mg PO 04/28/25
calcium 500 mg PO 1XD 04/28/25
diltiazem HCl 120 mg PO 1XD 04/28/25
fexofenadine 30 mg tablet 120 mg PO DAILY 04/28/25
Review of Systems
-
Constitutional: Reports No Symptoms
EENT: Reports No Symptoms
Respiratory: Reports No Symptoms
Cardiac: Reports No Symptoms
Abdomen/GI: Reports No Symptoms
: Reports No Symptoms
Musculoskeletal: Reports No Symptoms
Skin: Reports No Symptoms
Neurological: Reports No Symptoms
Endocrine: Reports No Symptoms
Hematologic/Lymphatic: Reports No Symptoms
Psych: Reports No Symptoms
Physical Exam
Vital Signs
Vital Signs
Temp Pulse Resp BP Pulse Ox
98.0 F 83 18 157/78 94
04/28/25 10:45 04/28/25 15:15 04/28/25 15:15 04/28/25 15:00 04/28/25 15:15
Physical Exam
General: Well Developed, Well Nourished and No Apparent Distress
HEENT: NormoCephalic, Moist mucous membranes and Atraumatic
Respiratory: Clear
Cardiac: S1/S2 and Regular Rhythm; No Murmur or Rub
GI: Soft, Non Tender, Non Distended and Normal Bowel Sounds; No Organomegaly
Rectal: Deferred by Provider
Musculoskeletal: No Clubbing, No Cyanosis and No Edema
Skin: No Rash
Neuro: AO x 3 and Nonfocal/grossly intact
Psych: Calm
Laboratory Results
-
04/28/25 11:01
04/28/25 11:01
Laboratory Results
PT 19.2 Sec (11.4-14.6) H 04/28/25 11:01
INR 1.59 04/28/25 11:01
APTT 34.2 Sec (23.4-35.0) 04/28/25 11:01
Total Bilirubin 0.7 mg/dl (0.2-1.3) 04/28/25 11:01
AST 15 U/L (14-36) 04/28/25 11:01
ALT 12 U/L (0-35) 04/28/25 11:01
Alkaline Phosphatase 124 U/L (38-126) 04/28/25 11:01
Troponin I < 0.012 ng/ml 04/28/25 11:01
Data Reviewed
-
Lab Data: Labs Reviewed by me
Impression/Plan
-
# Diffuse generalized body ache concern for PMR flare
# History of PMR
- WBC 12.1
- CRP 244.20, ESR 69
-initiated on steroids
-Tylenol prn for pain
-PT consulted.
#macrocytic Anemia
- Hemoglobin 10.5
-no active bleeding
-ctm
# Acute hyponatremia likely dehydration
- Sodium 130
-ctm
-fluids x1 bag
#DM type 2
- metformin
-sliding scale, CHO diet
#overactive bladder
-Myrbetriq continued
#GERD
-PPI continued
#Anxiety
-Continue amitriptyline
#HLD
-statin continued
#Hypertension
-on Cardizem,lisinopril
#History of VTE
Continue Eliquis
#CODE status
-full code
--- NOTE | 2025-04-28 15:55 | W.PN.UPDATE ---
Update Note
Progress Note Update
This note serves as an addendum to the H&P by bottom scrubber NAOMI�
Zoya IVONE�
HPI�
74y F with PMH significant for PMR, DMT2, HTN who presents to ED seen at ER:
- pw severe diffuse pain
- she was on steroids but was weaned off due to compression fractures.
- she has been taking oxycodone for pain without relief.
- ESR 60. CRP 244
- WBC is 12
Of note, she had bone marrow biopsy this past Wednesday and has had chills/sweats since.
PHX; see above
Reviewed VS:
Temp Pulse Resp BP Pulse Ox
98.0 F 83 18 157/78 94
04/28/25 10:45 04/28/25 15:15 04/28/25 15:15 04/28/25 15:00 04/28/25 15:15
PE
Gen: Not toxic
HEENT: atraumatic , anicteric sclera
Neck: supple
Lungs: CTA
Cor:RRR S1 S2
Abdomen:�soft, NT, NG
CLAY MAKER: AAO3. NFND
MS:
Psych:Nl mood and affect
Relevant Data�
04/25/25 04/28/25 04/28/25
08:39 11:01 12:07
WBC 12.1 H
Hgb 12.0 10.5 L
Plt Count 510 H 432 H
ESR 69 H
INR 1.59
Sodium 131 L
Carbon Dioxide 24
BUN 18 H
Creatinine 0.7
eGFR > 60.00
Calcium 10.5 H
Creatine Kinase < 20 L
Troponin I < 0.012
C-Reactive Protein 244.20 H
Albumin 3.2 L
CXR: No acute disease of the chest.
Last hospitalist admission: Date of Admission: 02/28/25 - Date of Discharge: 03/01/25
Principal Discharge diagnosis : Acute Hyponatremia, Polymyalgia Rheumatica, Diabetes Mellitus with hyperglycemia, Essential Hypertension, Anemia
ASSESSMENT & PLAN
Pending Rx reconciliation
Probably PMR flare
- Stopped PO prednisone since Middle of January due to concern for vertebral compression Fx
- No abn vision. No tongue claudication. No temporal artery tenderness
- Significantly elevated CRP and ESR
- Resume PO prednisone 20 mg now and daily
- Case dw patient regarding use of PO steroids is benefits outweigh the risk for pain control Plus benefits of narcotic sparing
- cont with Oxy PRN
- OP FU with Rheum for de-escalation/tapering steroids as tolerated
S/P BM Biopsy on 04/18/25 for Preop Dx : Myeloma ??
- f/u cytopathology
Hyponatremia, 131- mild
- Encourage p.o. intake
- f/u Na in AM
T2 DM - Last A1C 7.3
- add ISS low
- on metformin
Anxiety
- cont amitriptyline
Benign HTN
- continue lisinopril
HX VTE
- c/w Eliquis
GERD
- c/w UNDRAPED ARTIST MODEL PPI
DVT Px: UNDRAPED ARTIST MODEL Eliquis
Code: Full
OBS MS
[2025-04-28] MEDS: DILAUDID 0.5 MG IV ×2 (15:56→23:49)
[2025-04-28 18:13] LABS: Glucose - Point of Care 112 mg/dl (70-99)
[2025-04-28] MEDS: NOVOLOG FLEXPEN-LOW RESISTANCE SC (18:28)
[2025-04-28] MEDS: NSS 500 IV (18:37)
[2025-04-28] MEDS: GLUCOPHAGE 500 MG PO (18:47)
[2025-04-28] MEDS: ELIQUIS 5 MG PO (20:39)
[2025-04-28] MEDS: DELTASONE 20 MG PO (20:39)
[2025-04-28] MEDS: CARDIZEM CD 120 MG PO (20:39)
[2025-04-28 22:04] LABS: Glucose - Point of Care 139 mg/dl (70-99)
[2025-04-28] MEDS: ELAVIL 40 MG PO (23:16)
[2025-04-29 06:07] LABS: Hematocrit 32.0 % (37.0-47.0); Hemoglobin 10.7 g/dL (12.0-16.0); Mean Corp Hgb Conc. 33.4 g/dL (33.0-37.0); Mean Corpuscular Volume 84.2 fL (81.0-99.0); Platelet Count 428 10^3/uL (130-400); Red Cell Dist. Width 15.2 % (11.5-14.5)
[2025-04-29 06:36] LABS: Blood Urea Nitrogen 13 mg/dl (7-17); Calcium 10.4 mg/dl (8.4-10.2); Carbon Dioxide 22 mmol/L (22-30); Chloride 104 mmol/L (98-107); Estimated Creatinine Clearance 75 ml/min; Glucose 172 mg/dl (70-99); Potassium 4.5 mmol/L (3.5-5.1); Sodium 132 mmol/L (135-145); eGFR > 60.00
[2025-04-29 07:30] VITALS: BP 131/71
[2025-04-29 07:54] LABS: Glucose - Point of Care 159 mg/dl (70-99)
[2025-04-29] MEDS: NOVOLOG FLEXPEN-LOW RESISTANCE 1 UNITS SC ×2 (09:17→12:12)
[2025-04-29] MEDS: LIPITOR 10 MG PO (09:18)
[2025-04-29] MEDS: CARDIZEM CD 120 MG PO (09:18)
[2025-04-29] MEDS: ELIQUIS 5 MG PO (09:19)
[2025-04-29] MEDS: ZESTRIL 40 MG PO (09:19)
[2025-04-29] MEDS: PROTONIX 40 MG PO (09:19)
[2025-04-29] MEDS: CLARITIN 10 MG PO (09:19)
[2025-04-29] MEDS: GLUCOPHAGE 500 MG PO (09:20)
[2025-04-29] MEDS: DELTASONE 20 MG PO (09:20)
[2025-04-29 09:50] VITALS: BP 126/71; PULSE 84; O2SAT 92
--- NOTE | 2025-04-29 09:53 | CM ---
Addendum entered by Yareli Malik RN 04/29/25 10:45:
Consult received for VN. Discussed agencies. [facility] selected. Referral sent and accepted in [facility].
Caroline SALLY
Original Note:
Reviewed the chart notes and spoke with the patient at the bedside. The patient is admitted under observational status. The [employer] letter was provided and explained. The patient had no questions with regards to the letter.
The patient resides with her spouse in a two story home with first floor master bed/bath. There is one step to enter. The patient reports on having a cane. Patient has had VN in the past, but could not recall the name of the agency. The patient
reports no SNF. The patient confirmed her pharmacy of choice is [facility]. CM continues to be available to patient/family and is monitoring medical plan for needs at discharge.
Plan: Discharge plans will depend on the patient's progress.
[2025-04-29 09:56] VITALS: BP 126/71; PULSE 84; O2SAT 92
--- NOTE | 2025-04-29 10:08 | W.PN.HOSP.TC ---
Today's Communication/Plan
-
home/VN with steroids until seen by Rheum OP Wednesday
walker script
Assessment / Plan
Assessment / Plan
Assessment:
Diffuse generalized body ache concern for PMR flare
History of PMR
- CRP 244.20, ESR 69
- continue oral steroids until seen by OP Rheumatology Wednesday
- prn Tylenol
- PT/OT - VN with walker
Macrocytic Anemia
- Hemoglobin 10.5
- no active bleeding
- ctm
Acute hyponatremia likely dehydration
- Sodium 132
- s/p IVF
DM type 2
- metformin
- sliding scale, CHO diet
overactive bladder
- Myrbetriq continued
GERD
- PPI continued
Anxiety
- continue amitriptyline
HLD
- statin continued
Essential Hypertension
- Cardizem,lisinopril
Hx of VTE - on Eliquis
Code: Full
Anticipated Discharge: Today
Subjective/Interval History
-
Date of Service: April 29, 2025
feels improved with initiation of oral steroids
worked with PT and OT and did well
Objective Data
-
Labs:
Laboratory Results
04/29/25
05:29
WBC 10.9 H
Hgb 10.7 L
Hct 32.0 L
Plt Count 428 H
Sodium 132 L
Potassium 4.5
Chloride 104
Carbon Dioxide 22
BUN 13
Creatinine 0.6
Glucose 172 H
Calcium 10.4 H
Vital Signs:
Vital Signs
Temp Pulse Resp BP Pulse Ox
97.9 F 73 16 131/71 98
04/29/25 07:30 04/29/25 09:19 04/29/25 07:30 04/29/25 09:19 04/29/25 09:03
I&O
04/28/25 04/29/25 04/30/25
06:59 06:59 06:59
Intake Total 500 / 500
Balance 500 / 500
Physical Exam
-
General: No Apparent Distress
HEENT: Normocephalic and Atraumatic
Respiratory: Negative Wheezes
Cardiac: Regular Rhythm and S1/S2
GI: Soft
Genito-urinary: No Costovertebral Tender
Neuro: AO x 3
Psych: Calm
Data Reviewed
-
Total Time Spent with Patient (in minutes): 41
Labs: Labs Reviewed by me
[2025-04-29 10:09] LABS: Glycohemoglobin (HgbA1c) 6.3 % (4.0-5.6)
--- NOTE | 2025-04-29 10:35 | W.DCSUMMARY ---
Discharge Summary
Discharge Data
Date of Admission: 04/28/25
Date of Discharge: 04/29/25
-
Pending Results: No
Hospital Course
74 y/o F hx of type 2 DM, HTN, PMR (not on steroids) presented with diffuse myalgias/pain/body ache and ambulatory dysfunction. She underwent bone marrow biopsy earlier in the week. In ER, inflammatory markers were elevated concerning for PMR flare.
She was started on oral steroids which significant improvement by the next day. She will continue oral steroids until seen by rheumatology this coming Wednesday. PT/OT evaluted and recommended VN and a walker - both were setup with [facility].
Discharge Plan
-
Patient Disposition: Home with Home Care
Discharge Diagnosis/Procedures: PMR flare; responding to steroids
Condition: Fair
Diet: Diabetic, Carb Controlled
Activity: As tolerated
Other Services: VN, PT and OT
Referrals:
Ellis Hi MD [Family Provider, Family Practice] - in one week
Camila Rodriguez DO [Non-Admitting Privileges, Rheumatology]
Referral Note: Wednesday
Prescriptions:
New
prednisone 10 mg tablet
20 mg PO DAILY Qty: 14 0RF
Rx Instructions:
7 day supply
Continued
amitriptyline 10 mg Tablet
40 mg PO HS Qty: 0
Rx Instructions:
Given in ED
Eliquis 5 mg Tablet
5 mg PO BID
mirabegron [Myrbetriq] 25 mg Tablet Extended Release 24 Hr
25 mg PO DAILY
metformin 500 mg Tablet
500 mg PO BID@0800,1700 30 Days Qty: 60 2RF
lisinopril 20 mg Tablet
40 mg PO DAILY 30 Days Qty: 60 3RF
atorvastatin 10 mg Tablet
10 mg PO DAILY 30 Days Qty: 30 2RF
pantoprazole 40 mg Tablet,Delayed Release (Dr/Ec)
40 mg PO DAILY 30 Days Qty: 30 0RF
diltiazem HCl
120 mg PO 1XD
fexofenadine 30 mg Tablet
120 mg PO DAILY
Rx Instructions:
dose unknown
acetaminophen [Tylenol Arthritis Pain] 650 mg Tablet Extended Release
PO
Rx Instructions:
list does not state dose, just states 2 tablets.
calcium
500 mg PO 1XD
Discharge Orders:
Discharge Patient (As Directed); Ordered 04/29/25
Ordered By: Familia Fernández
Discharge Date and Time
Print Language: CYMRAES
[2025-04-29 11:51] LABS: Glucose - Point of Care 165 mg/dl (70-99)
[2025-04-29 12:15] VITALS: BP 150/69
[2025-04-30 13:02] LABS: Lyme Antibody Screen, EIA Negative (Negative)
== END 2025-04-29 13:33 | disposition home health service (06) ==
LOC: 4 EAST ACU 16:29
PROVIDERS: Physician Assistant; Registered Nurse; ADMITTING PHYSICIAN Internal Medicine; ATTENDING PHYSICIAN Internal Medicine; EMERGENCY PHYSICIAN Emergency Medicine; FAMILY PHYSICIAN Family Medicine
DX: M35.3 Polymyalgia rheumatica (principal); I10 Essential (primary) hypertension; E11.65 Type 2 diabetes mellitus with hyperglycemia; E78.00 Pure hypercholesterolemia, unspecified; D53.9 Nutritional anemia, unspecified; E87.1 Hypo-osmolality and hyponatremia; N32.81 Overactive bladder; K21.9 Gastro-esophageal reflux disease without esophagitis; F41.9 Anxiety disorder, unspecified; Z86.718 Personal history of other venous thrombosis and embolism; Z11.52 Encounter for screening for COVID-19; Z79.01 Long term (current) use of anticoagulants; Z87.891 Personal history of nicotine dependence; Z79.84 Long term (current) use of oral hypoglycemic drugs; Z79.899 Other long term (current) drug therapy
CPT/HCPCS: 71046; 80048; 80053; 81003; 81015; 82550; 82962; 83036; 84484; 85025; 85027; 85610; 85652; 85730; 86140; 86618; 87015; 87040; 87207; 87468; 87484; 87502; 87798; 87811; 96374; 97162; 97166; 99285; G0378

== ENCOUNTER → 2025-05-08 10:13 | Outpatient (REF) | payer MEDICARE, OTHER, SELFPAY ==
[2025-05-08 13:35] LABS: Hepatitis B Surface Antigen Negative (Negative)
[2025-05-08 14:37] LABS: Hepatitis C Antibody Negative (Negative)
[2025-05-10 09:57] LABS: Serine Protease-3, IgG 1 AU/mL (0-19)
[2025-05-10 13:29] LABS: IL-6 (Interleukin-6) 3.2 pg/mL (<=2.0)
[2025-05-10 13:53] LABS: Lyme Antibody Screen, EIA Negative (Negative)
[2025-05-10 21:21] LABS: 24 Hour Urine Total Volume Random mL; Urine Collection Length Random hr
== END ==
LOC: REG 10:13
PROVIDERS: FAMILY PHYSICIAN Family Medicine
DX: M35.3 Polymyalgia rheumatica (principal); M35.1 Other overlap syndromes
CPT/HCPCS: 36415; 82164; 82784; 83516; 83520; 83521; 83529; 84155; 84156; 84165; 86334; 86335; 86480; 86618; 86803; 87340

== ENCOUNTER → 2025-05-25 10:15 | Outpatient (REF) | payer MEDICARE, OTHER, SELFPAY | LOC: HWWDC 10:15 | PROVIDERS: ATTENDING PHYSICIAN Obstetrics & Gynecology; FAMILY PHYSICIAN Nurse Practitioner Family | DX: Z12.31 Encounter for screening mammogram for malignant neoplasm of breast (principal) | CPT/HCPCS: 77063; 77067 ==

== ENCOUNTER → 2025-06-21 13:17 | Outpatient (REF) | payer MEDICARE, OTHER, SELFPAY ==
[2025-06-21 14:30] LABS: Hematocrit 37.4 % (37.0-47.0); Hemoglobin 11.8 g/dL (12.0-16.0); Mean Corp Hgb Conc. 31.6 g/dL (33.0-37.0); Mean Corpuscular Volume 85.8 fL (81.0-99.0); Nucleated Red Blood Cells % 0 %; Platelet Count 360 10^3/uL (130-400); Red Cell Dist. Width 16.2 % (11.5-14.5)
[2025-06-21 15:10] LABS: ALT (SGPT) 102 U/L (0-35); AST (SGOT) 85 U/L (14-36); Albumin 3.9 g/dl (3.5-5.0); Alkaline Phosphatase 392 U/L (38-126); Blood Urea Nitrogen 14 mg/dl (7-17); Calcium 10.4 mg/dl (8.4-10.2); Carbon Dioxide 24 mmol/L (22-30); Chloride 104 mmol/L (98-107); Glucose 137 mg/dl (70-99); HDL Cholesterol 60 mg/dl; LDL Cholesterol, Calculated 68 mg/dl; Potassium 3.9 mmol/L (3.5-5.1); Sodium 134 mmol/L (135-145); Total Protein 6.6 g/dl (6.3-8.2); Very Low Density Lipoprotein 30 mg/dl (0-30); eGFR > 60.00
[2025-06-22 08:26] LABS: Glycohemoglobin (HgbA1c) 6.3 % (4.0-5.9)
== END ==
LOC: REG 13:17
PROVIDERS: ATTENDING PHYSICIAN Family Medicine
DX: I10 Essential (primary) hypertension (principal); E78.5 Hyperlipidemia, unspecified; E78.2 Mixed hyperlipidemia; E11.65 Type 2 diabetes mellitus with hyperglycemia
CPT/HCPCS: 36415; 80053; 80061; 83036; 85025

== ENCOUNTER → 2025-06-22 09:00 | Outpatient (REF) | payer MEDICARE, OTHER, SELFPAY ==
[2025-06-22 12:34] LABS: Microalb - Urine Creatinine 40.300 mg/dl
[2025-06-22 12:40] LABS: Microalbumin, Random Urine <0.6 mg/dl (0.6-1.7)
== END ==
LOC: REG 09:00
PROVIDERS: ATTENDING PHYSICIAN Family Medicine
DX: E11.65 Type 2 diabetes mellitus with hyperglycemia (principal)
CPT/HCPCS: 82043; 82570

== ENCOUNTER → 2025-07-17 09:45 | Outpatient (REF) | payer MEDICARE, OTHER, SELFPAY ==
[2025-07-17 10:45] LABS: Urine Character Clear (Clear)
[2025-07-17 10:50] LABS: Hematocrit 40.5 % (37.0-47.0); Hemoglobin 13.1 g/dL (12.0-16.0); Mean Corp Hgb Conc. 32.3 g/dL (33.0-37.0); Mean Corpuscular Volume 86.5 fL (81.0-99.0); Nucleated Red Blood Cells % 0 %; Platelet Count 430 10^3/uL (130-400); Red Cell Dist. Width 15.2 % (11.5-14.5)
[2025-07-17 11:17] LABS: ALT (SGPT) 40 U/L (0-35); AST (SGOT) 49 U/L (14-36); Albumin 4.0 g/dl (3.5-5.0); Alkaline Phosphatase 487 U/L (38-126); Alkaline Phosphatase, Total 487 U/L (38-126); Blood Urea Nitrogen 12 mg/dl (7-17); Calcium 11.0 mg/dl (8.4-10.2); Carbon Dioxide 24 mmol/L (22-30); Chloride 106 mmol/L (98-107); Glucose 111 mg/dl (70-99); Magnesium 1.8 mg/dl (1.6-2.3); Potassium 4.1 mmol/L (3.5-5.1); Sodium 136 mmol/L (135-145); Total Protein 6.9 g/dl (6.3-8.2); Uric Acid 4.8 mg/dl (2.5-6.2); eGFR > 60.00
[2025-07-17 11:29] LABS: Urine Red Blood Cell 0-2 /HPF (0-2); Urine Squamous Cell >30 /LPF (Few)
[2025-07-17 12:05] LABS: C-Reactive Protein 8.20 mg/L (0.0-10.00)
[2025-07-17 12:26] LABS: Vitamin D, 25-OH*** 31.0 ng/mL (30-80)
[2025-07-17 12:33] LABS: Hepatitis B Surface Antigen Negative (Negative)
[2025-07-17 13:15] LABS: Ferritin 30.6 ng/ml (11.1-264.0)
[2025-07-17 13:46] LABS: Folate 6.9 ng/ml (2.76-20)
[2025-07-17 15:09] LABS: Alk Phos After Heat 431; Alkaline Phosphatase Percent 88.50
[2025-07-17 15:36] LABS: Hepatitis C Antibody Negative (Negative)
[2025-07-17 16:16] LABS: Vitamin B12 307 pg/ml (239-931)
[2025-07-19 01:57] LABS: ANA, IgG Reflex to HEp-2 Detected (None Detected)
[2025-07-19 14:23] LABS: Rheumatoid Agglutinin Less Than 10 IU (<10 IU)
[2025-07-19 15:11] LABS: Serine Protease-3, IgG 1 AU/mL (0-19)
[2025-07-19 16:44] LABS: Lyme Antibody Screen, EIA Negative (Negative)
[2025-07-19 22:12] LABS: Albumin 3.42 g/dL (3.75-5.01); Free Kappa Light Chains,Quant 19.76 mg/L (3.30-19.40); Free Lambda Light Chains,Quant 22.95 mg/L (5.71-26.30); Immunofixation Electrophoresis IFE Done; Kappa/Lambda Fr Light Ratio 0.86 (0.26-1.65); Total Protein-Electrophoresis 6.3 g/dL (6.3-8.2)
== END ==
LOC: REG 09:45
PROVIDERS: ATTENDING PHYSICIAN Internal Medicine
DX: E55.9 Vitamin D deficiency, unspecified (principal); M10.9 Gout, unspecified; M25.50 Pain in unspecified joint; E06.3 Autoimmune thyroiditis; A69.20 Lyme disease, unspecified; M06.9 Rheumatoid arthritis, unspecified; K90.0 Celiac disease; K75.9 Inflammatory liver disease, unspecified; M60.9 Myositis, unspecified; M35.9 Systemic involvement of connective tissue, unspecified; E07.9 Disorder of thyroid, unspecified; G62.9 Polyneuropathy, unspecified; M06.4 Inflammatory polyarthropathy; D47.2 Monoclonal gammopathy; M32.9 Systemic lupus erythematosus, unspecified; M34.9 Systemic sclerosis, unspecified; D86.9 Sarcoidosis, unspecified; Z51.81 Encounter for therapeutic drug level monitoring; Z15.89 Genetic susceptibility to other disease; L04.9 Acute lymphadenitis, unspecified; D68.61 Antiphospholipid syndrome; K75.4 Autoimmune hepatitis; M45.9 Ankylosing spondylitis of unspecified sites in spine; M06.1 Adult-onset Still's disease; D89.1 Cryoglobulinemia; Z22.7 Latent tuberculosis; I77.82 Antineutrophilic cytoplasmic antibody [ANCA] vasculitis; D89.84 IgG4-related disease; M81.0 Age-related osteoporosis without current pathological fracture; E34.9 Endocrine disorder, unspecified; E61.2 Magnesium deficiency; E83.30 Disorder of phosphorus metabolism, unspecified; E21.5 Disorder of parathyroid gland, unspecified
CPT/HCPCS: 36415; 80053; 81003; 81015; 82164; 82306; 82550; 82570; 82607; 82652; 82728; 82746; 82784; 82787; 83516; 83521; 83735; 83970; 84078; 84155; 84156; 84165; 84443; 84550; 85025; 85652; 86038; 86039; 86140; 86231; 86334; 86430; 86480; 86618; 86704; 86706; 86803; 86812; 87340